=== PATIENT | male | born 1955 | race Two or more races ===

== ENCOUNTER 2020-05-07 00:50 | Inpatient (IN) | payer MEDICAID ==
[~2020-05-07] VITALS: Ht 177.8 cm; Wt 50.3 kg
[2020-05-07] VITALS (49 sets, daily range): BP systolic 59–164; BP diastolic 37–96
--- NOTE | 2020-05-07 01:30 | NUR ---
PATIENT CAME TO ER BED 7 BIB RA C/O ALTERED MENTAL STATUS. PER RESCUE AMBULANCE REPORT, PATIENT WAS ARGUING WITH STAFF AT [facility] WHEN HE SUDDENLY HAD A CHANGE IN MENTAL STATUS. PATIENT IS CURRENTLY AAOX4. NO SOB. BREATHING EVENLY AND UNLABORED ON ROOM AIR. CONNECTED TO MONITOR.
--- NOTE | 2020-05-07 01:31 | NUR ---
PATIENT HAS HX OF COPD.
[2020-05-07 01:33] LABS: APPEARANCE,URINE Clear (CLEAR); BILIRUBIN,URINE Negative (NEGATIVE); BLOOD, URINE Negative Ery/uL (NEGATIVE); COLOR,URINE Yellow (YELLOW); KETONES,URINE Negative (NEGATIVE); LEUKOCYTE ESTERASE ,URINE Negative (NEGATIVE); NITRITE, URINE Negative (NEGATIVE); PH,URINE 7.5 (5.0-8.0); PROTEIN,URINE Negative (NEGATIVE); UGLUCOSE Negative (NEGATIVE); UROBILINOGEN,URINE 0.2 EU/dL (0.2)
[2020-05-07 01:34] LABS: BASOPHILS % (AUTO) 0.2 % (0.0-2.0); EOSINOPHILS % (AUTO) 0.1 % (0.0-6.0); HEMATOCRIT 42 % (39-51); HEMOGLOBIN 13.5 g/dL (13.5-17.5); LYMPHOCYTES # (AUTO) 0.4 /CMM (0.8-4.8); LYMPHOCYTES % (AUTO) 4.1 % (20.0-44.0); MEAN CORPUSCULAR HGB CONC 32 g/dl (31.0-36.0); MEAN CORPUSCULAR VOLUME 97 fL (80-96); MONOCYTES # (AUTO) 0.3 /CMM (0.1-1.30); MONOCYTES % (AUTO) 3.2 % (2.0-12.0); NEUTROPHILS % (AUTO) 92.4 % (43.0-81.0); PLATELET COUNT (AUTO) 121 /CMM (150-450); RED BLOOD CELL COUNT(AUTO) 4.33 MIL/uL (4.5-6.0); WHITE BLOOD COUNT (AUTO) 8.6 K/uL (4.3-11.0)
--- NOTE | 2020-05-07 01:41 | NUR ---
PATIENT IS BEING SENT TO CT.
[2020-05-07 01:42] LABS: CHLORIDE 95 mmol/L (98-107); CREATININE 0.2 mg/dL (0.6-1.3); GLUCOSE 122 mg/dL (74-106); POTASSIUM 4.5 mmol/L (3.5-5.1); SODIUM SERUM 138 mmol/L (136-145); UREA NITROGEN, BLOOD 12 mg/dL (7-18)
[2020-05-07 01:57] LABS: ALKALINE PHOSPHATASE 64 U/L (46-116); BILIRUBIN,DIRECT 0.1 mg/dL (0.0-0.2); BILIRUBIN,TOTAL 0.3 mg/dL (0.2-1.0)
[2020-05-07 01:58] LABS: ALANINE AMINOTRANSFERASE 21 U/L (12-78); ALBUMIN 3.5 g/dL (3.4-5.0); ASPARTATE AMINOTRANSFERASE 17 U/L (15-37); TOTAL PROTEIN, SERUM 6.6 g/dL (6.4-8.2)
--- NOTE | 2020-05-07 03:05 | NUR ---
Pt found with GTube pulled out. Dr Matthew notified. 20 fr gtube inserted.
[2020-05-07] MEDS ORDERED: DIATR MEGLU/DIATRIZOATE SODIUM 30 ML BOTTLE (GASTROGRAPHIN) ONE (03:29)
--- NOTE | 2020-05-07 04:38 | NUR ---
Admission sheet turned in to admitting
--- NOTE | 2020-05-07 05:28 | NUR ---
Miguel Angel Whalen Hybrid Tester [phone]
--- NOTE | 2020-05-07 07:13 | NUR ---
PATIENT ACCEPTED TO [facility] WAITING ON BED ASSIGNMENT
--- NOTE | 2020-05-07 07:14 | NUR ---
REPORT GIVEN TO ZOILA MILLER FOR ARTI.
[2020-05-07] MEDS ORDERED: MIRT30TA7 PO (08:49)
[2020-05-07] MEDS ORDERED: FLUT1BLS12 INH (08:49)
--- NOTE | 2020-05-07 08:51 | NUR ---
submitted move sheet and called for tele bed.
[2020-05-07] MEDS ORDERED: methylPREDNISolone SOD SUCC 125 MG/2ML VIAL ONE (08:58)
[2020-05-07] MEDS ORDERED: ALBUTEROL SULFATE INH 18 GM HFA.AER.AD IH PRN (09:00)
[2020-05-07] MEDS ORDERED: IPRATROPIUM NEB FS 0.5 MG/2.5 ML AMPUL.NEB NEB ONE (09:00)
[2020-05-07] MEDS ORDERED: IV NS 0.9% 500 ML BAG IV ONE (09:00)
[2020-05-07] MEDS ORDERED: ALBUTEROL FS 2.5 MG/3 ML VIAL.NEB NEB ONE (09:00)
[2020-05-07] MEDS ORDERED: methylPREDNISolone SOD SUCC 125 MG/2ML VIAL IV ONE (09:00)
[2020-05-07] MEDS ORDERED: IPRATROPIUM NEB FS 0.5 MG/2.5 ML AMPUL.NEB ONE (09:03)
[2020-05-07] MEDS ORDERED: ALBUTEROL FS 2.5 MG/3 ML VIAL.NEB ONE (09:03)
--- NOTE | 2020-05-07 09:04 | NUR ---
RT AT BEDSIDE FOR BREATHING TREATMENT.
[2020-05-07] MEDS ORDERED: ACETAMINOPHEN ES 500 MG TABLET ONE (09:11)
[2020-05-07] MEDS ORDERED: ACETAMINOPHEN ES 500 MG TABLET PO ONE (09:30)
--- NOTE | 2020-05-07 09:33 | NUR ---
CALLED HOUSE SUP FOR TELE BED WILL CALL BACK.
--- NOTE | 2020-05-07 10:17 | NUR ---
DR WILLOUGHBY AT BEDSIDE
--- NOTE | 2020-05-07 10:27 | NUR ---
REPORT GIVEN TO JOSSE MILLER OF TELE UNIT
--- NOTE | 2020-05-07 10:41 | NUR ---
PATIENT TRANSFERRED TO ROOM 312-1 VIA ACLS PROTOCOL. NEEDS ATTENDED, KEPT COMFORTABLE.
[2020-05-07 10:47] LABS: CARBON DIOXIDE 37 mmol/L (21-32)
[2020-05-07] MEDS ORDERED: IV NS 0.9% 1,000 ML IV PRN (11:01)
--- NOTE | 2020-05-07 11:10 | NUR ---
RAP ARTIST NOTES RECEIVED PT FROM ER VIA KARMA. PT AWAKE, ON SUPPLEMENTARY OXYGEN AT 2LPM VIA NC WITH 96-98%, PT STILL APPEARS GASPING BREATH WITH OPEN MOUTH. PT ABLE TO NOD THAT HE IS NOT OKAY, BUT UNABLE TO VERBALIZE HOW AND WHY. ADMITTING MD/SA AT THE UNIT AWARE OF THE SITUATION. CHARGE NURSE AWARE WELL IS AWARE, ORDERED STAT ABG. ON TELEMONITORING AT SR WITH PVCS HR 87. WILL CONTINUE TO MONITOR.
[2020-05-07] MEDS ORDERED: ZOLPIDEM TARTRATE 5 MG TABLET PO PRN (11:30)
[2020-05-07] MEDS ORDERED: MAGNESIUM HYDROXIDE 30 ML UDC PO PRN (11:30)
[2020-05-07] MEDS ORDERED: MAG HYDROX/AL HYDROX/SIMETH 30 ML UDC PO PRN (11:30)
--- NOTE | 2020-05-07 11:50 | NUR ---
DONKEY DOCTOR NOTES RAPID RESPONSE CALLED PER ADMITTING MD/SA IN THE UNIT 1140. PT NEEDS TO BE INTUBATED. PT HAS PULSE AND BREATHING. ER MD ARRIVED AND INTUBATED PT AT 1148. PT TO BE TRANSFERRED TO ICU, R261. REFER TO RAPID RESPONSE SHEET WELL.
[2020-05-07] MEDS: FLUTICASONE/VILANTEROL 1 EACH BLST.W.DEV IH SCH (12:00)
--- NOTE | 2020-05-07 12:10 | NUR ---
MANUFACTURING MAINTENANCE MECHANIC NOTES TRANSFERRED PT TO ICU R261 VIA BED WITH ACLS TRANSPORT. REPORT GIVEN TO PAUL/CHANEL AT BEDSIDE.
--- NOTE | 2020-05-07 13:00 | NUR ---
pt temp is 95.2, Nain Awad on.
--- NOTE | 2020-05-07 13:00 | NUR ---
RT INTUBATED PT AT 1140 WITH 7.0 SECURED AT 25CM TEETH BY DR GRIFFITHS EQUAL BILATERAL BREATH SOUNDS C02 COLOR CHANGE, BAGGED + TRANSFERRED PT TO ICU PLACED ON MECH VENT PLUGGED IN RED OUTLET PLACED ON FOLLOWING VENT SETTINGS OF AC 18 400 +5 100% PULLED TUBE OUT 2 CM AFTER CHEST XRAY AT 23CM AT LIP SECURED WILL CONT TO MONITOR
[2020-05-07] MEDS: ENOXAPARIN SODIUM 40 MG/0.4 ML DISP.SYRIN SQ SCH (13:15)
[2020-05-07] MEDS ORDERED: IPRATROPIUM NEB FS 0.5 MG/2.5 ML AMPUL.NEB NEB PRN ×2 (13:30)
[2020-05-07] MEDS ORDERED: ALBUTEROL FS 2.5 MG/0.5 ML VIAL.NEB NEB PRN ×2 (13:30)
[2020-05-07] MEDS ORDERED: LEVOFLOXACIN 500 MG /D5W 100ML 500 MG in PREMIX 1 EA IV SCH (13:30)
[2020-05-07] MEDS ORDERED: PROPOFOL 100 ML IV PRN (13:30)
--- NOTE | 2020-05-07 13:45 | NUR ---
received pt from [facility], s/p intubation s/t respiratory arrest, pt started on Diprivan, SR, lungs diminished, no edema, GT clamped, f/c inserted, picc line inserted, family notified, v/s stable, no pain, pt cleaned, changed and repositioned.
[2020-05-07 13:56] LABS: ABG BASE EXCESS 14.3 mmol/L; ABG PCO2 76.2 mmHg (35.0-45.0); ABG PH 7.369 (7.350-7.450); ABG PO2 154.1 mmHg (75.0-100.0); AaDO2 482.7 mmHg; COHb 0.3 % (0.5-1.5); MetHb 0.1 % (0.0-1.5); O2Hb 98.6 % (94.0-97.0); SITE, ABG Left Brachial; VENT MODE, BG AC 18 400 +5 100%
--- NOTE | 2020-05-07 14:30 | NUR ---
pt SBP 65-71, Dr. Salamanca notified, orders received and carried out.
[2020-05-07] MEDS: Z GUARD REMEDY 2 OZ OINT TP SCH ×2 (14:46→20:53)
[2020-05-07] MEDS: LEVOFLOXACIN 750 MG /D5W 150ML 750 MG in PREMIX 1 EA IV SCH (14:46)
[2020-05-07] MEDS: PHENYLEPHRINE 100 MG in IV NS 0.9% 240 ML IV PRN (15:58)
--- NOTE | 2020-05-07 16:41 | NUR ---
pt is resting in the bed, sedated on Diprivan at 70mcg, SR, intubated, sat well, low urine output, MD aware, receiving monica at 1.5mcg, v/s stable, no pain, pt cleaned, changed and repositioned q2hrs.
[2020-05-07] MEDS ORDERED: VECURONIUM 10 MG VIAL IV ONE (16:52)
[2020-05-07] MEDS ORDERED: ETOMIDATE 2 MG/ML VIAL IV ONE (16:52)
[2020-05-07] MEDS ORDERED: SUCCINYLCHOLINE CHLORIDE 20 MG/ML VIAL IV ONE (16:52)
[2020-05-07] MEDS: methylPREDNISolone SOD SUCC 40 MG/ML VIAL IV SCH (16:57)
[2020-05-07] MEDS: PROPOFOL 100 ML IV PRN (17:54)
[2020-05-07] MEDS ORDERED: methylPREDNISolone SOD SUCC 125 MG/2ML VIAL IV SCH (18:00)
[2020-05-07] MEDS: IV NS 0.9% 1,000 ML IV PRN (20:52)
[2020-05-07] MEDS: MIRTAZAPINE 15 MG TABLET PO SCH (21:54)
[2020-05-08] VITALS (93 sets, daily range): BP systolic 72–146; BP diastolic 45–86
--- NOTE | 2020-05-08 00:25 | NUR ---
RT NOTE Pt rec'd intubated via ETT sz 7.0 secured at 23 cm at the lipline. [facility] on [facility] vent on AC mode settings as charted. Pt shows no signs of resp distress or sob. Pt sx'd for thick small amt of pale yellow secretions. Alarms are set and audible. Ambu bag bedside. Vent plugged into red outlet. Will continue to monitor Addendum: 05/08/20 at 0031 by ALEXANDRO WILLIAM RT Amended: Links added.
[2020-05-08] MEDS: PROPOFOL 100 ML IV PRN ×4 (00:31→21:15)
[2020-05-08] MEDS: IV NS 0.9% 1,000 ML IV PRN (02:25)
[2020-05-08 04:52] LABS: BASOPHILS % (AUTO) 0.2 % (0.0-2.0); HEMATOCRIT 31 % (39-51); HEMOGLOBIN 10.4 g/dL (13.5-17.5); LYMPHOCYTES # (AUTO) 0.7 /CMM (0.8-4.8); LYMPHOCYTES % (AUTO) 4.2 % (20.0-44.0); MEAN CORPUSCULAR HGB CONC 34 g/dl (31.0-36.0); MEAN CORPUSCULAR VOLUME 96 fL (80-96); MONOCYTES # (AUTO) 0.5 /CMM (0.1-1.30); MONOCYTES % (AUTO) 3.3 % (2.0-12.0); NEUTROPHILS # (AUTO) 14.8 /CMM (1.8-8.9); NEUTROPHILS % (AUTO) 92.3 % (43.0-81.0); RED BLOOD CELL COUNT(AUTO) 3.22 MIL/uL (4.5-6.0)
[2020-05-08 04:57] LABS: PLATELET COUNT (AUTO) 87 /CMM (150-450)
[2020-05-08 05:03] LABS: CREATININE 0.3 mg/dL (0.6-1.3); MAGNESIUM 1.7 mg/dL (1.8-2.4); POTASSIUM 3.2 mmol/L (3.5-5.1)
[2020-05-08 05:13] LABS: THYROID STIMULATING HORMONE 2.567 uIU/mL (0.358-3.74)
--- NOTE | 2020-05-08 06:42 | NUR ---
RN notes Patient in bed, sedated with no apparent distress. Breathing even and unlabored. Vent setting well tolerated. No physical manifestation of pain or discomfort. On propofol drip started at the beginning of shift at 70mcg/kg/hr titrated down up to 0mcg/kg/hr, tolerating welll. On levo drip started at 2.5, titrated down to 1.05, no adverse effect noted. Noted low temperature of 96.4, applied heating pad, otherwise all Vital signs wnl. No signaficant change of condition. Kept clean and dry. Will endorse to next shift for continuity of care.
--- NOTE | 2020-05-08 06:46 | NUR ---
RN notes Radiology called regarding result of xray, suspected pneumothorax on the right side. Relayed message to MD (Dr. Julian). advised to let pulmonary doctor know. Will endorse to next shift. Kept clean and dry.
--- NOTE | 2020-05-08 08:00 | NUR ---
Sedation Vacation Notes 05/08: Patient able to make eye contact, follow command and nod yes or no to questions
[2020-05-08] MEDS: Magnesium 1GM/D5W 100ML PREMIX 100 ML IV SCH ×2 (08:28→10:28)
[2020-05-08] MEDS: ENOXAPARIN SODIUM 40 MG/0.4 ML DISP.SYRIN SQ SCH (08:29)
[2020-05-08] MEDS: Z GUARD REMEDY 2 OZ OINT TP SCH ×2 (08:29→21:18)
[2020-05-08] MEDS: methylPREDNISolone SOD SUCC 40 MG/ML VIAL IV SCH ×3 (08:29→17:09)
[2020-05-08] MEDS: PHENYLEPHRINE 100 MG in IV NS 0.9% 240 ML IV PRN (08:30)
[2020-05-08] MEDS ORDERED: POTASSIUM CHLORIDE 20 MEQ TAB.PRT.SR PO ONE (08:30)
[2020-05-08] MEDS: ACETAMINOPHEN 325 MG TABLET PO PRN (08:30)
[2020-05-08 08:39] LABS: ABG BASE EXCESS 8.5 mmol/L; ABG OXYGEN SATURATION 95.6 % (92.0-98.5); ABG PCO2 43.6 mmHg (35.0-45.0); ABG PH 7.493 (7.350-7.450); ABG PO2 72.4 mmHg (75.0-100.0); AaDO2 235.1 mmHg; COHb 0.3 % (0.5-1.5); O2Hb 95.3 % (94.0-97.0); SITE, ABG Right Radial; VENT MODE, BG AC 18 400 +5 50%
[2020-05-08] MEDS: FLUTICASONE/VILANTEROL 1 EACH BLST.W.DEV IH SCH (09:00)
[2020-05-08] MEDS: Potassium Chloride 10 MEQ in IV NS 0.9% 1,000 ML IV PRN ×2 (09:34→23:18)
[2020-05-08] MEDS: FAMOTIDINE/PF INJ 20 MG/2 ML VIAL IV SCH ×2 (09:34→17:09)
[2020-05-08] MEDS: IPRATROPIUM NEB FS 0.5 MG/2.5 ML AMPUL.NEB NEB SCH ×4 (10:17→21:48)
[2020-05-08] MEDS: ALBUTEROL FS 2.5 MG/0.5 ML VIAL.NEB NEB SCH ×4 (10:17→21:48)
[2020-05-08] MEDS: LEVOFLOXACIN 750 MG /D5W 150ML 750 MG in PREMIX 1 EA IV SCH (13:09)
[2020-05-08] MEDS: JEVITY 1.2 CAL 1,000 ML BOTTLE GT PRN (14:00)
[2020-05-08] MEDS ORDERED: NEUTRA PHOS 1 POWD.PACKET NG ONE (15:00)
--- NOTE | 2020-05-08 18:25 | NUR ---
COMPUTER TAPE LIBRARIAN Shift Summary Patient is sedated, attached to [facility] vent via ETT, FiO2 50%, no distress noted. Attached to tele monitor, SR HR 90s. PEG in place feeding Jevity @15mL/hr, placement verified via auscultation, no residual. Barclay draining to gravity. Bony sacrum protected with mepilex+zguard applied. Restraints in place for safety. JESSICA PICC infusing monica@0.9mcg/kg/min, NS+K @75ml/hr, propofol @50mcg/kg/min. Per repeat CXR, no pneumo. Spoke to son and today.
--- NOTE | 2020-05-08 18:49 | NUR ---
patient belonging note patient's phone in top drawer
--- NOTE | 2020-05-08 19:30 | NUR ---
THIN FILM TECHNICIAN INITAL SHIFT NOTES RECEIVED PATIENT IN BED, SEDATED ON DIPRIVAN DRIP, ORALLY INTUBATED ON MECHANICAL VENT AT PRESCRIBED SETTINGS. BEDSIDE TELEMETRY MONITORING SHOWS SINUS RHYTHM, HR 84 BPM. JESSICA PICC PATENT AND INTACT RUNNING IV FLUIDS SN WITH 10MEQ KCL @ 75ML/HR AND NEOSYNEPHRINE DRIP. GT PATENT AND INTACT, TOLERATING TUBE FEEDING, CURRENTLY @ 15ML/HR, GOAL OF 20ML/HR. PINEDA CATHETER PATENT AND INTACT, DRAINING YELLOW URINE VIA GRAVITY.
[2020-05-08] MEDS: MIRTAZAPINE 15 MG TABLET PO SCH (21:15)
[2020-05-09] VITALS (94 sets, daily range): BP systolic 83–139; BP diastolic 47–110
--- NOTE | 2020-05-09 | NUR ---
SLOT MACHINE KEY PERSON NOTES PATIENT RESTING IN BED, APPEARS COMFORTABLE. REMAINS ORALLY INTUBATED ON MECHANICAL VENT. WILL MONITOR CLOSELY
[2020-05-09] MEDS: ALBUTEROL FS 2.5 MG/0.5 ML VIAL.NEB NEB SCH ×4 (02:08→19:55)
[2020-05-09] MEDS: IPRATROPIUM NEB FS 0.5 MG/2.5 ML AMPUL.NEB NEB SCH ×4 (02:08→19:55)
[2020-05-09] MEDS: PROPOFOL 100 ML IV PRN ×3 (03:53→20:14)
[2020-05-09 04:18] LABS: BASOPHILS % (AUTO) 0.1 % (0.0-2.0); HEMATOCRIT 33 % (39-51); HEMOGLOBIN 10.8 g/dL (13.5-17.5); LYMPHOCYTES # (AUTO) 0.3 /CMM (0.8-4.8); LYMPHOCYTES % (AUTO) 3.8 % (20.0-44.0); MEAN CORPUSCULAR HGB CONC 33 g/dl (31.0-36.0); MEAN CORPUSCULAR VOLUME 97 fL (80-96); MONOCYTES # (AUTO) 0.3 /CMM (0.1-1.30); MONOCYTES % (AUTO) 3.9 % (2.0-12.0); NEUTROPHILS # (AUTO) 8.2 /CMM (1.8-8.9); NEUTROPHILS % (AUTO) 92.2 % (43.0-81.0); PLATELET COUNT (AUTO) 95 /CMM (150-450); RED BLOOD CELL COUNT(AUTO) 3.39 MIL/uL (4.5-6.0); WHITE BLOOD COUNT (AUTO) 8.9 K/uL (4.3-11.0)
[2020-05-09 04:37] LABS: ALBUMIN 2.3 g/dL (3.4-5.0); BILIRUBIN,TOTAL 0.2 mg/dL (0.2-1.0); CREATININE 0.3 mg/dL (0.6-1.3); PHOSPHORUS 2.5 mg/dL (2.5-4.9); POTASSIUM 3.9 mmol/L (3.5-5.1); TOTAL PROTEIN, SERUM 5.2 g/dL (6.4-8.2)
--- NOTE | 2020-05-09 06:50 | NUR ---
LAW CLERK NOTES RECEIVED CALL FROM RADIOLOGIST DR MENCHACA TO DISCUSS CXR FINDINGS OF PERSISTENT FREE AIR/PNEUMOPERITONEUM, FOUND ALSO ON PREVIOUS RADIOGRAPHS. DR MENCHACA SUGGESTS ABDOMINAL XRAY OR CT OF ABDOMEN TO FURTHER CHARACTERIZE. WILL RELAY TO DAY SHIFT NURSE FOR FOLLOW UP WITH
--- NOTE | 2020-05-09 07:00 | NUR ---
APPRENTICE LINEMAN THIRD STEP NOTES PATIENT RESTING IN BED, APPEARS COMFORTABLE. REMAINS ORALLY INTUBATED, SEDATED ON DIPRIVAN DRIP @ 50MCG, NEOSYNEPHRINE GTT 0.7MCG/KG/MIN
--- NOTE | 2020-05-09 08:00 | NUR ---
ICU/RN INITIAL NOTES,AM RECEIVED REPORT FROM NIGHT NURSE. PT INTUBATED AND SEDATED, ON VENT SETTINGS ORDERED BY MD, NO ACUTE DISTRESS NOTED. SINUS ON TELE. PT ON BILATERAL SOFT WRIST RESTRAINTS, ASSESSED PER PROTOCOL. RIGHT UPPER ARM PICC LINE PATENT AND INTACT, NO S.S OF INFECTION OR INFILTRATION NOTED, NBA, IVF AND SEDATION INFUSING ORDERED, AND TITRATED PER PROTOCOL. ALL NEEDS WILL BE ATTENDED TO, SAFETY MEASURES TAKEN, BED IN LOW POSITION, SIDE RAILS UP, CALL LIGHT WITHIN REACH. WILL CONTINUE CARE.
[2020-05-09 08:21] LABS: ABG OXYGEN SATURATION 99.1 % (92.0-98.5); ABG PCO2 69.6 mmHg (35.0-45.0); ABG PH 7.377 (7.350-7.450); ABG PO2 189.2 mmHg (75.0-100.0); COHb 0.3 % (0.5-1.5); MetHb 0.2 % (0.0-1.5); O2Hb 98.6 % (94.0-97.0); SITE, ABG Right Radial; VENT MODE, BG AC 18 400 50% +5
--- NOTE | 2020-05-09 08:30 | NUR ---
ICU/RN: DISCUSSED CHEST XRAY WITH . NO CONCERNS REGARDING POSSIBLE PNEUMO, WILL CONTINUE TO MONITOR.
[2020-05-09] MEDS: FLUTICASONE/VILANTEROL 1 EACH BLST.W.DEV IH SCH (08:36)
[2020-05-09] MEDS: Z GUARD REMEDY 2 OZ OINT TP SCH ×2 (08:36→20:15)
[2020-05-09] MEDS: FAMOTIDINE/PF INJ 20 MG/2 ML VIAL IV SCH ×2 (08:38→17:20)
[2020-05-09] MEDS: methylPREDNISolone SOD SUCC 40 MG/ML VIAL IV SCH ×3 (08:38→17:20)
[2020-05-09] MEDS: ENOXAPARIN SODIUM 40 MG/0.4 ML DISP.SYRIN SQ SCH (08:39)
--- NOTE | 2020-05-09 09:30 | NUR ---
ICU/RN: SEDATION VACATION DONE, PT OPENS EYES, FOLLOWS COMMANDS. AGITATION NOTED, TITRATED PER PROTOCOL.
--- NOTE | 2020-05-09 09:35 | NUR ---
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 RECOMMEND SURGICAL CONSULT FOR SACRAL WOUND. DR TAYLOR NOTIFIED OF CONSULT REQUEST. PT IS EXTREMELY THIN AND BONY. DIETARY CONSULT IN PLACE FOR MALNUTRITION. YAHIR ISOFLEX LOW AIRLOSS BED TO BE PLACED WHEN AVAILABLE. ALL SKIN PROTECTION RECOMMENDATIONS DISCUSSED WITH NURSING STAFF. MD IN AGREEMENT WITH PLAN OF CARE. Addendum: 05/09/20 at 0938 by ION VALVERDE WNDNU Amended: Links added.
--- NOTE | 2020-05-09 09:45 | NUR ---
ICU/RN: WOUND CONSULT: RN AT BEDSIDE, ASSESSED ORDERS RECEIVED WILL FOLLOW THROUGH.
[2020-05-09] MEDS: LEVOFLOXACIN 750 MG /D5W 150ML 750 MG in PREMIX 1 EA IV SCH (13:38)
[2020-05-09] MEDS: JEVITY 1.2 CAL 1,000 ML BOTTLE GT PRN (17:20)
[2020-05-09] MEDS: HYDROGEL DRESSING 90 GM TUBE TP SCH (17:21)
[2020-05-09] MEDS: PHENYLEPHRINE 100 MG in IV NS 0.9% 240 ML IV PRN (17:25)
--- NOTE | 2020-05-09 19:15 | NUR ---
ICU/RN ENDING NOTES,AM REPORT ENDORSED TO NIGHT NURSE. PT INTUBATED AND SEDATED. NO DISTRESS NOTED. POSSIBLE WEANING IN AM. ALL NEEDS ATTENDED TO, SAFETY MEASURES TAKEN, BED IN LOW POSITION, SIDE RAILS UP, CALL LIGHT WITHIN REACH. BILATERAL SOFT WRIST RESTRAINTS ASSESSED PER PROTOCOL. NBA INFUSING FOR BP SUPPORT. WILL CONTINUE TO MONITOR
--- NOTE | 2020-05-09 19:30 | NUR ---
QUAIL FARMER INITIAL SHIFT NOTES RECEIVED PATIENT IN BED, SEDATED ON DIPRIVAN DRIP, ORALLY INTUBATED ON MECHANICAL VENT AT PRESCRIBED SETTINGS. BEDSIDE TELEMETRY MONITORING SHOWS SINUS RHYTHM, HR 78 BPM. JESSICA PICC PATENT AND INTACT RUNNING IV FLUIDS 1/2 NS WITH 10MEQ KCL @ 100ML/HR AND NEOSYNEPHRINE DRIP, CURRENTLY @ 0.5MCG/KG/MIN. GT PATENT AND INTACT, TOLERATING TUBE FEEDING, CURRENTLY @ 20ML/HR, GOAL RATE ACHIEVED. PINDEA CATHETER PATENT AND INTACT, DRAINING GREEN COLORED URINE VIA GRAVITY.
[2020-05-09] MEDS: MIRTAZAPINE 15 MG TABLET PO SCH (22:49)
[2020-05-10] VITALS (55 sets, daily range): BP systolic 99–170; BP diastolic 59–107
--- NOTE | 2020-05-10 | NUR ---
FINANCIAL SERVICES EDUCATION CONSULTANT NOTES PATIENT RESTING IN BED, APPEARS COMFORTABLE. REMAINS ORALLY INTUBATED ON MECHANICAL VENT. WILL MONITOR CLOSELY
[2020-05-10] MEDS: ALBUTEROL FS 2.5 MG/0.5 ML VIAL.NEB NEB SCH ×4 (00:52→20:26)
[2020-05-10] MEDS: IPRATROPIUM NEB FS 0.5 MG/2.5 ML AMPUL.NEB NEB SCH ×4 (00:52→20:26)
[2020-05-10] MEDS: PROPOFOL 100 ML IV PRN (02:38)
--- NOTE | 2020-05-10 04:00 | NUR ---
LARRY OPERATOR NOTES FULL BED BATH RENDERED, PATIENT TOLERATED WELL. WILL CONTINUE TO MONITOR
[2020-05-10 04:16] LABS: CREATININE 0.3 mg/dL (0.6-1.3); POTASSIUM 4.1 mmol/L (3.5-5.1)
--- NOTE | 2020-05-10 07:27 | NUR ---
STRATEGIC MARKETING SPECIALIST NOTES PATIENT RESTING IN BED, APPEARS COMFORTABLE. REMAINS ORALLY INTUBATED, SEDATED ON DIPRIVAN DRIP @ 50MCG, NEOSYNEPHRINE GTT 0.3MCG/KG/MIN. WILL ENDORSE THE PATIENT TO THE AM SHIFT NURSE FOR CONTINUITY OF CARE
--- NOTE | 2020-05-10 07:45 | NUR ---
ICU/RN PT IS INTUBATED ON THE VENT AC MODE,SAT O2-100%.SEDATED ON DIPRIVAN.ON NEOSYNEPHRINE DRIP.RIGHT UPPER ARM PICC LINE .F/C IN PLACE DRAINING WITH YELLOW URINE.G-TUBE INFUSING WITH JEVITY AT 20 ML/HR NO RESIDUAL NOTED.WOUND ON THE SACRUM COVERED WITH MEPILEX.SUCTION PROVIDED.REPOSITION FOR COMFORT.
[2020-05-10] MEDS: methylPREDNISolone SOD SUCC 40 MG/ML VIAL IV SCH ×3 (08:15→16:12)
[2020-05-10] MEDS: FAMOTIDINE/PF INJ 20 MG/2 ML VIAL IV SCH ×2 (08:15→16:12)
[2020-05-10] MEDS: HYDROGEL DRESSING 90 GM TUBE TP SCH (08:16)
[2020-05-10] MEDS: Z GUARD REMEDY 2 OZ OINT TP SCH ×2 (08:17→21:50)
[2020-05-10] MEDS: ENOXAPARIN SODIUM 40 MG/0.4 ML DISP.SYRIN SQ SCH (08:17)
--- NOTE | 2020-05-10 08:30 | NUR ---
ICU/RN PT IS ON SIMV MODE.DIPRIVAN OFF.PT IS AWAKE.ALERT,FOLLOWS COMMAND..
[2020-05-10] MEDS ORDERED: DC PROPOFOL WHEN EXTUBATED XX PRN (09:00)
--- NOTE | 2020-05-10 09:00 | NUR ---
ICU/RN DUE MEDS ARE GIVEN ORDERED.
[2020-05-10 09:48] LABS: ABG BASE EXCESS 10.2 mmol/L; ABG OXYGEN SATURATION 98.4 % (92.0-98.5); ABG PCO2 51.4 mmHg (35.0-45.0); ABG PH 7.457 (7.350-7.450); ABG PO2 129.5 mmHg (75.0-100.0); AaDO2 60.3 mmHg; COHb 0.3 % (0.5-1.5); MetHb 0.1 % (0.0-1.5); SITE, ABG Right Radial; VENT MODE, BG SIMV 4 400 +5 35%
--- NOTE | 2020-05-10 10:00 | NUR ---
ICU/RN PT IS EXTUBATED.NEOSYNEPHRINE OFF.BP STABLE.PLACED ON 2 L N/C ,SAT O2-100%.
--- NOTE | 2020-05-10 11:15 | NUR ---
ICU/MODELING ANALYST DEBRIDEMENT DONE.WOUND DRESSING DONE ORDERED.PT IS AWAKE ,ALERT.BP STABLE.CONTINUE MONITORING.
[2020-05-10] MEDS: LEVOFLOXACIN 750 MG /D5W 150ML 750 MG in PREMIX 1 EA IV SCH (14:14)
[2020-05-10] MEDS: HYDROCODONE/APAP 5/325MG 1 EACH TABLET PO PRN ×2 (16:13→21:54)
[2020-05-10] MEDS: JEVITY 1.2 CAL 1,000 ML BOTTLE GT PRN (16:18)
--- NOTE | 2020-05-10 18:00 | NUR ---
ICU/RN PM CARE PROVIDED.DUE MEDS ARE GIVEN ORDERED.V/S STABLE,AFEBRILE.ON 2L N/C ,SAT O2-97%.CONTINUE MONITORING.
--- NOTE | 2020-05-10 19:30 | NUR ---
FRUIT OR NUT FARMWORKER INITIAL SHIFT NOTES RECEIVED PATIENT IN BED, AWAKE, ALERT AND ORIENTED X 2-3, SLIGHTLY LETHARGIC, BUT IMPROVING. PATIENT WAS EXTUBATED EARLIER TODAY, BREATHING EVEN AND NONLABORED WHILE AT REST, TOLERATING O2 VIA NC @ 2LPM. JESSICA PICC PATENT AND INTACT, ALL PORTS FLUSHED WITH NS, FREE FROM ANY SIGNS AND SYMPTOMS OF INFILTRATION OR PHLEBITIS. PATIENT NOTED TO BE EATING PUDDING AT THIS TIME, PENDING SWALLOW EVALUATION, BUT PASSED NURSING SWALLOW EVAL PER DAY SHIFT NURSE. PATIENT OBSERVED TO BE TOLERATING DIET AT THIS TIME. PATIENT WITH GT, TUBE FEEDING AT PRESCRIBED RATEEXPLAINED TO THE PATIENT REGARDING PLAN FOR SWALLOW EVALUATION BY SPEECH THERAPY. PER PATIENT "I JUST WANTED A TASTE, IM DONE FOR TONIGHT." PINEDA CATHETER PATENT AND INTACT, DRAINING YELLOW URINE VIA GRAVITY. HOB KEPT ELEVATED FOR COMFORT AND ANTI-ASPIRATION PRECAUTIONS
[2020-05-10] MEDS: MIRTAZAPINE 15 MG TABLET PO SCH (21:49)
[2020-05-11] VITALS (33 sets, daily range): BP systolic 95–170; BP diastolic 56–102
[2020-05-11] MEDS: IPRATROPIUM NEB FS 0.5 MG/2.5 ML AMPUL.NEB NEB SCH ×4 (01:07→20:13)
[2020-05-11] MEDS: ALBUTEROL FS 2.5 MG/0.5 ML VIAL.NEB NEB SCH ×4 (01:07→20:13)
[2020-05-11] MEDS: HYDROCODONE/APAP 5/325MG 1 EACH TABLET PO PRN ×2 (01:52→21:05)
--- NOTE | 2020-05-11 02:44 | NUR ---
POST SECONDARY PROFESSIONAL NOTES - HYPERTENSION PATIENT NOTED WITH PERSISTENT HYPERTENSION, LATEST BP 164/93 DESPITE ADMINISTRATION OF NORCO. CALLED AND SPOKE TO DR SHAO. BATEMAN WITH NEW ORDER FOR NORVASC 5MG VIA GT X1, AND CLONIDINE 0.1MG PO Q6H PRN. ORDERS READ BACK FOR CLARIFICATION. WILL CARRY OUT NEW ORDERS AND MONITOR CLOSELY
[2020-05-11] MEDS ORDERED: AMLODIPINE BESYLATE 5 MG TABLET GT ONE (03:00)
[2020-05-11] MEDS: CLONIDINE HCL 0.1 MG TABLET PO PRN (04:07)
--- NOTE | 2020-05-11 04:14 | NUR ---
SAP BUSINESS INTELLIGENCE CONSULTANT NOTES PATIENT REFUSED BED BATH THIS AM, STATING "ITS TOO COLD." PATIENT DID ALLOW RN TO CHECK SHEETS, CLEAN AT THIS TIME - NO BM. WILL MONITOR CLOSELY. CLONIDINE 0.1MG ADMINISTERED ORDERED FOR BP 170/90. CONTINUE CLOSE MONITORING
[2020-05-11 04:47] LABS: HEMATOCRIT 36 % (39-51); HEMOGLOBIN 11.8 g/dL (13.5-17.5); LYMPHOCYTES # (AUTO) 0.9 /CMM (0.8-4.8); LYMPHOCYTES % (AUTO) 15.5 % (20.0-44.0); MEAN CORPUSCULAR HGB CONC 33 g/dl (31.0-36.0); MEAN CORPUSCULAR VOLUME 97 fL (80-96); MONOCYTES # (AUTO) 0.5 /CMM (0.1-1.30); MONOCYTES % (AUTO) 8.7 % (2.0-12.0); NEUTROPHILS # (AUTO) 4.5 /CMM (1.8-8.9); NEUTROPHILS % (AUTO) 75.8 % (43.0-81.0); PLATELET COUNT (AUTO) 112 /CMM (150-450); RED BLOOD CELL COUNT(AUTO) 3.73 MIL/uL (4.5-6.0); WHITE BLOOD COUNT (AUTO) 5.9 K/uL (4.3-11.0)
[2020-05-11 04:59] LABS: CALCIUM, SERUM 8.4 mg/dL (8.5-10.1); CREATININE 0.2 mg/dL (0.6-1.3); MAGNESIUM 2.2 mg/dL (1.8-2.4); POTASSIUM 3.9 mmol/L (3.5-5.1)
--- NOTE | 2020-05-11 06:51 | NUR ---
RN ORTHOPAEDIC CLOSING NOTES PATIENT SLEEPING IN BED AT THIS TIME. PATIENT DENIES ANY SHORTNESS OF BREATH OR LABORED BREATHING, TOLERATED O2 VIA NC THROUGHOUT THE SHIFT @ 2LPM. NO BM THIS SHIFT. PATIENT REFUSED BED BATH, BUT DID LET STAFF CHECK SHEETS, WHICH ARE CLEAN AND DRY AT THIS TIME. WILL ENDORSE THE PATIENT TO THE AM SHIFT NURSE FOR ARTI
--- NOTE | 2020-05-11 07:30 | NUR ---
MANAGER SHIPPING INITIAL NOTE RECEIVED PATIENT AWAKE A/OX4, ABLE TO MAKE NEEDS KNOWN. WEAK IN APPEARANCE. DENIES PAIN OR DISCOMFORT. DENIES SOB AT THIS TIME. ON 2LPMO2 VIA NC. SKIN WARM AND DRY TO TOUCH. ON TELE MONITOR SR . F/C IN PLACE, DRAINING BY GRAVITY. HOB ELEVATED. ISOLATION PRECAUTIONS OBSERVE. PICC LINE PATENT AND INTACT, IVF RUNNING. SIDE RAILS UP AND LOCKED. BED KEPT AT LOWEST POSITION. CALL LIGHT KEPT WITHIN EASY REACH. WILL CONTINUE TO MONITOR.
[2020-05-11 08:31] LABS: ABG BASE EXCESS 13.5 mmol/L; ABG OXYGEN SATURATION 94.9 % (92.0-98.5); ABG PCO2 79.9 mmHg (35.0-45.0); ABG PH 7.346 (7.350-7.450); ABG PO2 76.4 mmHg (75.0-100.0); COHb 0.3 % (0.5-1.5); MetHb 0.2 % (0.0-1.5); O2Hb 94.4 % (94.0-97.0); SITE, ABG Right Radial; VENT MODE, BG 28% N/C
[2020-05-11] MEDS: methylPREDNISolone SOD SUCC 40 MG/ML VIAL IV SCH ×3 (08:48→17:08)
[2020-05-11] MEDS: FAMOTIDINE/PF INJ 20 MG/2 ML VIAL IV SCH ×2 (08:48→17:08)
[2020-05-11] MEDS: ALPRAZOLAM 0.25 MG TABLET PO PRN (08:48)
[2020-05-11] MEDS: ENOXAPARIN SODIUM 40 MG/0.4 ML DISP.SYRIN SQ SCH (08:49)
[2020-05-11] MEDS ORDERED: DIATR MEGLU/DIATRIZOATE SODIUM 30 ML BOTTLE (GASTROGRAPHIN) ONE (08:52)
[2020-05-11] MEDS: Z GUARD REMEDY 2 OZ OINT TP SCH ×2 (08:54→20:54)
[2020-05-11] MEDS: HYDROGEL DRESSING 90 GM TUBE TP SCH (08:54)
--- NOTE | 2020-05-11 08:56 | NUR ---
KNIFE SETTER GRINDER MACHINE NOTE SEEN AND EXAMINED BY DR WILLOUGHBY. DR WILLOUGHBY SPOKE TO SON, AWARE SON WANTS TO TAKE HIS DAD HOME. PER DR WILLOUGHBY PATIENT IS NOT STABLE TO GO HOME AND HE WILL HAVE PATIENT DOWNGRADED. MD AWARE OF RECENT CXR AND KUB ORDERED WITH GASTROGRAFIN. PER MD TURN OFF FEEDING FOR NOW. OK TO USE GT TO GIVE PATIENTS XANAX, PATIENT C/O FEELING ANXIOUS AT THIS TIME. NEW ORDERS NOTED. WILL CONTINUE TO MONITOR.
--- NOTE | 2020-05-11 09:10 | NUR ---
REAL ESTATE SERVICES ADMINISTRATOR NOTE SEEN AND EXAMINED BY DR FARIAS, PER MD KEEP PATIENT IN ICU FOR NOW, PUT ON BIPAP 15/5 AND DO ABGS 2 HOURS AFTER. RT AWARE.
--- NOTE | 2020-05-11 10:03 | NUR ---
FORESTRY FARM LABORER NOTE KUB RESULT REVIEWED BY DR FARIAS. PER DR FARIAS, INFORM DR WILLOUGHBY PATIENT NEEDS TO BE SEEN BY SURGEON, PEG IS NOT IN PLACE. SPOKE WITH DR WILLOUGHBY ON THE PHONE WITH ORDERS FOR NPO AND ATIVAN 0.25MG Q6 PRN IVP FOR ANXIETY.
--- NOTE | 2020-05-11 10:50 | NUR ---
CASE MANAGEMENT COORDINATOR NOTE KUB RESULT SEEN BY DR WILLOUGHBY WITH ORDER FOR CT ABDOMEN PELVIS WITHOUT CONTRAST
[2020-05-11 11:56] LABS: ABG BASE EXCESS 16.7 mmol/L; ABG PCO2 72.4 mmHg (35.0-45.0); ABG PH 7.408 (7.350-7.450); AaDO2 95.9 mmHg; MetHb 0.1 % (0.0-1.5); O2Hb 97.9 % (94.0-97.0); SITE, ABG Right Radial
--- NOTE | 2020-05-11 12:45 | NUR ---
RADIOLOGIC TECH NOTE RELAYED ABG RESULTS TO DR FARIAS WITH ORDERS TO KEEP BIPAP ON TIL TOMORROW MORNING, THEN ABG 2 HOURS OFF BIPAP. NOTED, AND RT AWARE. OK TO PLACE PATIENT ON NC FOR CT SCAN PROCEDURE.
--- NOTE | 2020-05-11 13:07 | NUR ---
ECONOMIC CONSULTANT NOTE RELAYED CT SCAN RESULTS TO DR WILLOUGHBY. WITH ORDERS OK TO CONTINUE TUBE FEEDING AND KUB AT 6AM TOMORROW MORNING
[2020-05-11] MEDS: LEVOFLOXACIN (250MG) 250 MG TABLET PO SCH (13:27)
--- NOTE | 2020-05-11 13:37 | NUR ---
agricultural agent note patient refusing bipap, dr melendez at bedside educating patient for need for bipap, patient still refused bipap. per dr melendez do stat abg to see if co2 levels improved and use bipap prn if patient in distress.
[2020-05-11] MEDS: LORAZEPAM INJ 2 MG/ML VIAL IV PRN ×2 (15:15→21:12)
--- NOTE | 2020-05-11 16:00 | NUR ---
director agricultural services note relayed to dr melendez patient spo2 on fio2 40% is 90-91%, fio2 titrated to 60%, spo2 96%. will continue to monitor. Addendum: 05/11/20 at 1638 by ANNMARIE LIU RN DELETE NOTE WRONG PATIENT
[2020-05-11 16:50] LABS: ABG BASE EXCESS 15.4 mmol/L; ABG OXYGEN SATURATION 94.9 % (92.0-98.5); ABG PCO2 70.4 mmHg (35.0-45.0); ABG PH 7.407 (7.350-7.450); ABG PO2 74.6 mmHg (75.0-100.0); COHb 0.3 % (0.5-1.5); MetHb 0.1 % (0.0-1.5); O2Hb 94.5 % (94.0-97.0); SITE, ABG Right Radial; VENT MODE, BG Nasal Cannula
[2020-05-11] MEDS: JEVITY 1.2 CAL 1,000 ML BOTTLE GT PRN (17:20)
--- NOTE | 2020-05-11 19:15 | NUR ---
MORTGAGE COORDINATOR NOTE RECEIVED PATIENT IN BED RESTING WITH HOB ELEVATED. A&O X3, ABLE TO MAKE NEEDS KNOWN. VERBALLY RESPONSIVE. BREATHING IS EVEN AND NON-LABORED. NO SOB NOTED AT THIS TIME. PATIENT WAS ON BIPAP, REQUESTED TO REMOVE BIPAP AND SWITCHED TO O2 2L VIA NC. O2 SAT IS 100% AT THIS TIME. [facility] FEEDING RUNNING AT 40 ML/HR. IV SITE ON JESSICA PICC IS CLEAN, DRY, AND PATENT. ON PINEDA CATH, URINE IS CLEAR AND YELLOW IN COLOR. IN NO APPARENT DISTRESS NOTED AT THIS TIME. WILL CONTINUE TO MONITOR.
--- NOTE | 2020-05-11 19:26 | NUR ---
AUTOMATIC EQUIPMENT TECHNICIAN CLOSING NOTES KEPT PATIENT CLEAN AND DRY. TURNED AND REPOSITIONED Q2 AND PRN. TOLERATING GT. GT PATENT AND INTACT, IN PLACE. PATIENT HAS BEEN REQUESTING TO BE ON AND OFF THE BIPAP MACHINE PER PATIENTS TOLERANCE. ALL DUE MEDS GIVEN. F/C PATENT, DRAINING BY GRAVITY. HOB ELEVATED. SIDE RAILS UP AND LOCKED. BED KEPT AT LOWEST POSITION. CALL LIGHT KEPT WITHIN EASY REACH. CONTINUITY OF CARE ENDORSED TO PM NURSE.
--- NOTE | 2020-05-11 21:00 | NUR ---
EMPLOYEE BENEFITS ATTORNEY NOTE PATIENT IS BACK ON BIPAP AT THIS TIME. WILL CONTINUE TO MONITOR.
[2020-05-11] MEDS: MIRTAZAPINE 15 MG TABLET PO SCH (21:04)
--- NOTE | 2020-05-11 23:25 | NUR ---
PEST CONTROL OPERATOR NOTE RECEIVED CALL FROM LAB, PATIENT'S REPEAT COVID SWAB IS NEGATIVE. WILL CONTINUE TO MONITOR.
[2020-05-12] VITALS (25 sets, daily range): BP systolic 90–159; BP diastolic 63–98
[2020-05-12] MEDS: ALBUTEROL FS 2.5 MG/0.5 ML VIAL.NEB NEB SCH ×4 (00:54→20:02)
[2020-05-12] MEDS: IPRATROPIUM NEB FS 0.5 MG/2.5 ML AMPUL.NEB NEB SCH ×4 (00:54→20:02)
[2020-05-12] MEDS: LORAZEPAM INJ 2 MG/ML VIAL IV PRN ×3 (02:59→20:46)
--- NOTE | 2020-05-12 03:05 | NUR ---
EARLY CHILDHOOD EDUCATION INSTRUCTOR NOTE PATIENT NOTED WITH ANXIETY AND REQUESTING TO REMOVE BIPAP DUE TO DISCOMFORT AT THIS TIME. BIPAP REMOVED AND PLACED PATIENT ON O2 2L VIA NC. O2 SAT IS 95% AT THIS TIME. WILL CONTINUE TO MONITOR.
[2020-05-12 04:01] LABS: BASOPHILS % (AUTO) 0.1 % (0.0-2.0); HEMATOCRIT 40 % (39-51); HEMOGLOBIN 12.8 g/dL (13.5-17.5); LYMPHOCYTES # (AUTO) 1.3 /CMM (0.8-4.8); LYMPHOCYTES % (AUTO) 14.8 % (20.0-44.0); MEAN CORPUSCULAR HGB CONC 32 g/dl (31.0-36.0); MEAN CORPUSCULAR VOLUME 96 fL (80-96); MONOCYTES # (AUTO) 0.7 /CMM (0.1-1.30); MONOCYTES % (AUTO) 7.5 % (2.0-12.0); NEUTROPHILS # (AUTO) 6.8 /CMM (1.8-8.9); NEUTROPHILS % (AUTO) 77.6 % (43.0-81.0); PLATELET COUNT (AUTO) 131 /CMM (150-450); RED BLOOD CELL COUNT(AUTO) 4.17 MIL/uL (4.5-6.0); WHITE BLOOD COUNT (AUTO) 8.7 K/uL (4.3-11.0)
[2020-05-12 04:11] LABS: CREATININE 0.3 mg/dL (0.6-1.3); POTASSIUM 4.5 mmol/L (3.5-5.1)
--- NOTE | 2020-05-12 07:13 | NUR ---
PROPERTY ADMINISTRATOR NOTE PATIENT REMAINED STABLE THROUGHOUT THE NIGHT. NO SIGNIFICANT CHANGES NOTED. ALL DUE MEDS GIVEN ORDERED AND TOLERATED WELL. IN NO APPARENT DISTRESS NOTED AT THIS TIME. WILL ENDORSE TO AM SHIFT RN FOR CONTINUATION OF CARE.
--- NOTE | 2020-05-12 07:30 | NUR ---
COAGULATING BATH MIXER INITIAL NOTE RECEIVED PATIENT AWAKE ALERT AND ORIENTED TO SELF, TIME, PLACE. PERIODS OF CONFUSION. PATIENT NOTED TRYING TO GET OUT OF BED, STATED HE HAS TO BUILDING SERVICES COORDINATOR A CUSTOMER. PATIENT REORIENTED. DENIES SOB ON 2LPMO2 VIA NC. DENIES PAIN OR DISCOMFORT. ON TELE MONITOR SINUS TACHY. F/C IN PLACE DRAINING BY GRAVITY. TURNED AND REPOSITIONED. BED ALARM ON. SIDE RAILS UP AND LOCKED. BED KEPT AT LOWEST POSITION. WILL CONTINUE TO MONITOR.
[2020-05-12 08:15] LABS: ABG BASE EXCESS 13.8 mmol/L; ABG OXYGEN SATURATION 97.9 % (92.0-98.5); ABG PCO2 91.1 mmHg (35.0-45.0); ABG PH 7.305 (7.350-7.450); ABG PO2 112.5 mmHg (75.0-100.0); COHb 0.2 % (0.5-1.5); MetHb 0.3 % (0.0-1.5); O2Hb 97.4 % (94.0-97.0); SITE, ABG Right Radial; VENT MODE, BG 1.5 lpm nc
--- NOTE | 2020-05-12 08:35 | NUR ---
HORSE RACETRACK MANAGER NOTE DR FARIAS SPOKE WITH SON ESTEFANI, UPDATES WERE GIVEN TO SON. DR FARIAS DISCUSSED WITH SON PATIENTS STATUS AND ASKED WHAT THEIR WISHES ARE FOR THE PATIENT. PER SON THEY WOULD LIKE TO SEE HIS FATHER AND SEE WHAT HE WOULD LIKE TO DO. PER DR FARIAS INFORM NURSING PECAN CLEANER TO ALLOW MOTHER AND SON TO SEE PATIENT TO DETERMINE WHAT THEIR WISHES ARE, SELECTIVE TRACH VS BIPAP OR PALLIATIVE/HOSPICE SNF. SPOKE WITH PECAN CLEANER BAUTISTA, SHE WILL ALLOW 15 MINS FOR SON AND TO COME.
[2020-05-12] MEDS: FAMOTIDINE/PF INJ 20 MG/2 ML VIAL IV SCH ×2 (09:23→17:35)
[2020-05-12] MEDS: methylPREDNISolone SOD SUCC 40 MG/ML VIAL IV SCH ×3 (09:23→17:35)
[2020-05-12] MEDS: HYDROGEL DRESSING 90 GM TUBE TP SCH (09:24)
[2020-05-12] MEDS: ENOXAPARIN SODIUM 40 MG/0.4 ML DISP.SYRIN SQ SCH (09:24)
[2020-05-12] MEDS: Z GUARD REMEDY 2 OZ OINT TP SCH ×2 (09:24→20:46)
--- NOTE | 2020-05-12 09:57 | NUR ---
FORESTER AIDE NOTE PATIENT ON BIPAP, SLEEPING COMFORTABLY AT THIS TIME. WILL CONTINUE TO MONITOR.
[2020-05-12 10:13] LABS: ABG PCO2 68.3 mmHg (35.0-45.0); ABG PH 7.404 (7.350-7.450); ABG PO2 106.9 mmHg (75.0-100.0); AaDO2 99.8 mmHg; COHb 0.1 % (0.5-1.5); MetHb 0.1 % (0.0-1.5); O2Hb 97.8 % (94.0-97.0); SITE, ABG Right Radial; VENT MODE, BG 15/5 PS10 40%
[2020-05-12] MEDS ORDERED: DILTIAZEM HCL 30 MG TABLET PEG SCH (12:00)
--- NOTE | 2020-05-12 12:59 | NUR ---
RT BREATHING TX NOT GIVEN DUE TO INCREASED HR (133) RN ANNMARIE AWARE
[2020-05-12] MEDS: LEVOFLOXACIN (250MG) 250 MG TABLET PO SCH (13:31)
--- NOTE | 2020-05-12 13:45 | NUR ---
RESEARCH EDITOR NOTE PATIENT MORE ALERT, LESS CONFUSED. PER PATIENT HE BREATHS BETTER WITH THE BIPAP. WAITING FOR SON AND TO ARRIVE.
--- NOTE | 2020-05-12 14:47 | NUR ---
CUSTOMER SERVICE CASHIER NOTE DR WILLOUGHBY SPOKE WITH FAMILY WHEN THEY WERE AT BEDSIDE VIA PHONE. SPOKE WITH DR WILLOUGHBY VIA PHONE TO SEE WHAT HE DISCUSSED WITH FAMILY. NEW ORDER RECEIVED FOR HOUSE WRECKER TO SEE PATIENT AND SPEAK WITH FAMILY FOR COMFORT CARE/ HOME HEALTH. INFORMED MD PATIENT HR 130-140'S, WITH LOW BP. NEW ORDER RECEIVED TO DC CARDIZEM AND START METOPROLOL 25MG Q8 VIA GT [employer]. NOTED
--- NOTE | 2020-05-12 17:00 | NUR ---
SPRAY PAINTING MACHINE OPERATOR NOTE CASE MANAGEMENT REYES SPOKE TO FAMILY REGARDING HOME HEALTH/ HOSPICE, PER REYES FAMILY ARE MORE TOWARDS HOME HEALTH. THEY WILL DISCUSS MORE WITH FAMILY TOMORROW.
[2020-05-12] MEDS: METOPROLOL TARTRATE 25 MG TABLET GT SCH (17:34)
--- NOTE | 2020-05-12 19:15 | NUR ---
HEAD WAITRESS NOTE RECEIVED PATIENT IN BED RESTING WITH HOB ELEVATED. A&O X3, ABLE TO MAKE NEEDS KNOWN. VERBALLY RESPONSIVE. BREATHING IS EVEN AND NON-LABORED. NO SOB NOTED AT THIS TIME. PATIENT ON O2 2L VIA NC. O2 SAT IS 94% AT THIS TIME. ON JEVITY GT FEEDING RUNNING AT 40 ML/HR. IV SITE ON JESSICA PICC IS CLEAN, DRY, AND PATENT. ON PINEDA CATH, URINE IS CLEAR AND PALE YELLOW IN COLOR. CALL LIGHT IS WITHIN EASY REACH. IN NO APPARENT DISTRESS NOTED AT THIS TIME. WILL CONTINUE TO MONITOR.
--- NOTE | 2020-05-12 19:28 | NUR ---
ENGINEERING MANAGER CLOSING NOTES PATIENT HAS BEEN OFF AND ON THE BIPAP MACHINE. CURRENTLY ON NC 1.5 LPM. ALL DUE MEDS GIVEN. DENIES SOB AT THIS TIME. STATES HE FEELS MUCH BETTER. TOLERATING GTF. F/C DRAINING BY GRAVITY. KEPT CLEAN AND DRY. TURNED AND REPOSITIONED Q2 AND PRN. SIDE RAILS UP AND LOCKED. BED KEPT AT LOWEST POSITION. CALL LIGHT KEPT WITHIN EASY REACH. CONTINUITY OF CARE ENDORSED TO PM NURSE.
[2020-05-12] MEDS: HYDROCODONE/APAP 5/325MG 1 EACH TABLET PO PRN (20:46)
[2020-05-12] MEDS ORDERED: METOPROLOL TARTRATE 25 MG TABLET GT SCH (21:00)
--- NOTE | 2020-05-12 21:55 | NUR ---
DIRECT MARKETING REPRESENTATIVE NOTE NOTED PATIENT AGITATED AND EXHIBITS PERIODS OF CONFUSION. PATIENT TRIES TO GET OUT OF BED AND REMOVES HIS BIPAP. ATIVAN MED GIVEN ORDERED, STILL PATIENT ATTEMPTS TO GET OUT OF BED AND REMOVE O2 MONITORING LINE. INFORMED ON-CALL MD, DR. COON AND RECEIVED ORDER FOR BILATERAL SOFT WRIST RESTRAINTS. ORDERS NOTED AND CARRIED OUT. WILL CONTINUE TO CLOSELY MONITOR.
[2020-05-12] MEDS: MIRTAZAPINE 15 MG TABLET PO SCH (22:10)
[2020-05-13] VITALS (24 sets, daily range): BP systolic 91–159; BP diastolic 64–103
[2020-05-13] MEDS: ALBUTEROL FS 2.5 MG/0.5 ML VIAL.NEB NEB SCH ×4 (01:30→19:34)
[2020-05-13] MEDS: IPRATROPIUM NEB FS 0.5 MG/2.5 ML AMPUL.NEB NEB SCH ×4 (01:44→19:34)
--- NOTE | 2020-05-13 01:45 | NUR ---
RT albuterol not given due to tachycardia Addendum: 05/13/20 at 0146 by AGUILAR PHELPS RT RT albuterol not given due to tachycardiaGalilea caballero rn, notified
[2020-05-13] MEDS: JEVITY 1.2 CAL 1,000 ML BOTTLE GT PRN ×2 (01:54→23:44)
[2020-05-13] MEDS: ALPRAZOLAM 0.25 MG TABLET PO PRN (02:13)
[2020-05-13] MEDS: HYDROCODONE/APAP 5/325MG 1 EACH TABLET PO PRN ×2 (03:34→21:54)
--- NOTE | 2020-05-13 04:00 | NUR ---
MANAGER BENEFIT NOTE PATIENT TOLERATED BED BATH WELL AT THIS TIME. ALL WOUND CARE RENDERED. WILL CONTINUE TO MONITOR.
[2020-05-13 04:13] LABS: CALCIUM, SERUM 8.3 mg/dL (8.5-10.1); CREATININE 0.3 mg/dL (0.6-1.3); POTASSIUM 4.3 mmol/L (3.5-5.1)
[2020-05-13] MEDS: METOPROLOL TARTRATE 25 MG TABLET GT SCH ×3 (04:22→20:24)
--- NOTE | 2020-05-13 06:49 | NUR ---
INSIDE PARTS SALES NOTE PATIENT IS RESTING COMFORTABLY AT THIS TIME. STILL ON BIPAP, O2 SATURATION IS 99%. PATIENT IS KEPT CLEAN, DRY, AND COMFORTABLE, STILL ON BILATERAL SOFT WRIST RESTRAINTS. PATIENT CONTINUES TO TRY TO REMOVE BIPAP WHEN AWAKE. WILL ENDORSE TO AM SHIFT RN FOR CONTINUATION OF CARE.
--- NOTE | 2020-05-13 07:50 | NUR ---
EDI SPECIALIST: pt is obtunded, can open eyes for seconds, no eyes contact, unable to follow commands, rest now, on wrists restraints, on Bipap, O2sat over 95%, no SOB, SR, SBP 100, GTF residual 60 ml now, keep HOB over 40
--- NOTE | 2020-05-13 08:20 | NUR ---
DAIRY HUSBANDRY WORKER: updated with pt current status, VS, neuro status, I/O, IVF, ABG, changed Bipap setting: I/E 13/04, rate 12
[2020-05-13 08:21] LABS: ABG BASE EXCESS 14.1 mmol/L; ABG PCO2 73.8 mmHg (35.0-45.0); ABG PH 7.375 (7.350-7.450); ABG PO2 113.8 mmHg (75.0-100.0); AaDO2 86.5 mmHg; COHb 0.3 % (0.5-1.5); MetHb 0.3 % (0.0-1.5); O2Hb 97.4 % (94.0-97.0); SITE, ABG Right Radial; VENT MODE, BG S/T 15/5 BUR8 40%
[2020-05-13] MEDS: methylPREDNISolone SOD SUCC 40 MG/ML VIAL IV SCH ×3 (08:49→16:11)
[2020-05-13] MEDS: FAMOTIDINE/PF INJ 20 MG/2 ML VIAL IV SCH ×2 (08:49→16:10)
[2020-05-13] MEDS: HYDROGEL DRESSING 90 GM TUBE TP SCH (08:54)
[2020-05-13] MEDS: ENOXAPARIN SODIUM 40 MG/0.4 ML DISP.SYRIN SQ SCH (08:54)
[2020-05-13] MEDS: Z GUARD REMEDY 2 OZ OINT TP PRN (08:55)
[2020-05-13] MEDS: Z GUARD REMEDY 2 OZ OINT TP SCH ×2 (08:56→21:42)
--- NOTE | 2020-05-13 10:30 | NUR ---
FIELD ADMINISTRATIVE ASSISTANT: was in unit, see new orders, ordered Hospice eval/charge nurse spoke with case loader operator, ST updated with pt current status
--- NOTE | 2020-05-13 11:00 | NUR ---
DATA ARCHITECT MANAGER: pt.son called/notified re pt.current status, VS, o2sat., orders, spoke with , going to speak with .
--- NOTE | 2020-05-13 11:15 | NUR ---
ROUND CUTTER OPERATOR: ordered to place pt on 1-2L n/c, continue monitoring, place back on Bipap with desaturation/distress/lethargic reaction, nocturnal Bipap also, spoke with pt.son with explanation for POC/possible TT placement, Hospice company called, updated with pt.condition, VS, POC, pt is FULL code, going to call to lead case manager
--- NOTE | 2020-05-13 12:30 | NUR ---
RT NOTE PLACE ON 1L NASAL CANNULA AND NOC BIPAP PER ORDERS. PT TOLERATING WELL. WILL MONITOR CLOSELY.
[2020-05-13] MEDS: LEVOFLOXACIN (250MG) 250 MG TABLET PO SCH (13:45)
--- NOTE | 2020-05-13 14:30 | NUR ---
MERCHANDISE PICKUP/RECEIVING ASSOCIATE: pt is A/Ox2, rest, no c/o, no pain, O2sat. over 95% on 1L nc, no SOB, SR/ST max 120, SBP over 100/below 160, ST did swallow eval./ice chips only, pt is getting GTF/tolerated well
--- NOTE | 2020-05-13 16:25 | NUR ---
RADIO REPAIRMAN: called to [facility] re Dr.Shao FERNANDEZ eval order d/t pt malnutrition
--- NOTE | 2020-05-13 16:30 | NUR ---
ASSEMBLY MANAGER: DT called back: continue same GTF rate
--- NOTE | 2020-05-13 16:54 | NUR ---
ASSURANCE ENGINEER: pt.is A/Ox3, no pain now, tolerated well with NC O2 1.5L now, O2sat. over 94%, easy to be desaturation with activity, RT reevaluated pt.too, tolerated well for resp.Tx, SR/ST max 105 now, SBP over 100, GTF residual WNL, keep HOB over 40, all PM/bedbath/skin care/wounds care done, pt.spoke with family/used own cellphone, pt.got explanation again re POC, orders, included Bipap orders, wrists restraints are off
--- NOTE | 2020-05-13 19:57 | NUR ---
travel registered nurse icu. initial assessment. received the pt rest on the bed. awake. alert follow commands. coo showing nsr. iv rt upper arm picc line. ivf 1/2ns in potassium 10 meq 100 ml/h. hob elevated. gt intact. no leaking. jevity 40 ml/h. fc patent, urine draining, afebrile, christina continue to monitor vitals, oxygen 1.5l via nasal cannula. sat 97%. will continue to monitor vitals.
[2020-05-13] MEDS: MIRTAZAPINE 15 MG TABLET PO SCH (21:44)
--- NOTE | 2020-05-13 22:43 | NUR ---
GROUP CONTROLLER. BIPAP PLACED, SETTINGS 20/5.RATE IS 12,FIO2 40%. WILL CONTINUE TO MONITOR
[2020-05-14] VITALS (27 sets, daily range): BP systolic 110–161; BP diastolic 66–113
[2020-05-14] MEDS: IPRATROPIUM NEB FS 0.5 MG/2.5 ML AMPUL.NEB NEB SCH ×4 (01:12→19:46)
[2020-05-14] MEDS: ALBUTEROL FS 2.5 MG/0.5 ML VIAL.NEB NEB SCH ×4 (01:12→19:46)
[2020-05-14] MEDS: METOPROLOL TARTRATE 25 MG TABLET GT SCH ×3 (04:26→21:13)
[2020-05-14] MEDS: HYDROCODONE/APAP 5/325MG 1 EACH TABLET PO PRN ×5 (04:27→21:14)
[2020-05-14 05:01] LABS: BASOPHILS % (AUTO) 0.1 % (0.0-2.0); EOSINOPHILS % (AUTO) 0.1 % (0.0-6.0); HEMATOCRIT 37 % (39-51); LYMPHOCYTES # (AUTO) 0.8 /CMM (0.8-4.8); LYMPHOCYTES % (AUTO) 13.2 % (20.0-44.0); MEAN CORPUSCULAR HGB CONC 33 g/dl (31.0-36.0); MEAN CORPUSCULAR VOLUME 96 fL (80-96); MONOCYTES # (AUTO) 0.5 /CMM (0.1-1.30); MONOCYTES % (AUTO) 8.9 % (2.0-12.0); NEUTROPHILS # (AUTO) 4.5 /CMM (1.8-8.9); NEUTROPHILS % (AUTO) 77.7 % (43.0-81.0); PLATELET COUNT (AUTO) 111 /CMM (150-450); RED BLOOD CELL COUNT(AUTO) 3.85 MIL/uL (4.5-6.0); WHITE BLOOD COUNT (AUTO) 5.8 K/uL (4.3-11.0)
[2020-05-14 05:09] LABS: CALCIUM, SERUM 8.4 mg/dL (8.5-10.1); CREATININE 0.3 mg/dL (0.6-1.3)
--- NOTE | 2020-05-14 05:19 | NUR ---
BOX TOE BUFFER 0230 BIPAP OFF. BECAUSE PT REFUSED.
--- NOTE | 2020-05-14 05:22 | NUR ---
CIVIL ENGINEERING ASSISTANT. AM CARE, ORAL CARE, BED BATH GIVEN. LINEN CHANGED. REMAINING SAME OXYGEN 1.5 L VIA NASAL CANNULA. SAT 98%. PT IS MOUTH BREATHER, EXPLAIN ABOUT BIPAP INTENTION. HE UNDERSTAND. STILL REFUSED. GT FEEDING TOLERATED WELL. HOB ELEVATED. FC PATENT URINE DRAINING. AFEBRILE. IV RT UPPER ARM PICC LINE IVF 1/2NS IN10 MEQ KCL @ 100ML/HWILL CONTINUE TO MONITOR VITALS.
[2020-05-14 07:33] LABS: ABG BASE EXCESS 11.5 mmol/L; ABG PCO2 60.7 mmHg (35.0-45.0); ABG PH 7.418 (7.350-7.450); ABG PO2 71.7 mmHg (75.0-100.0); AaDO2 27.2 mmHg; COHb 0.1 % (0.5-1.5); MetHb 0.3 % (0.0-1.5); O2Hb 93.6 % (94.0-97.0); SITE, ABG Right Radial; VENT MODE, BG NC 1 L
[2020-05-14] MEDS: methylPREDNISolone SOD SUCC 40 MG/ML VIAL IV SCH ×3 (08:20→16:00)
[2020-05-14] MEDS: FAMOTIDINE/PF INJ 20 MG/2 ML VIAL IV SCH ×2 (08:20→16:00)
[2020-05-14] MEDS: ENOXAPARIN SODIUM 40 MG/0.4 ML DISP.SYRIN SQ SCH (08:21)
[2020-05-14] MEDS: HYDROGEL DRESSING 90 GM TUBE TP SCH (08:22)
[2020-05-14] MEDS: Z GUARD REMEDY 2 OZ OINT TP SCH ×2 (08:22→21:14)
[2020-05-14] MEDS: ONDANSETRON HCL/PF 4 MG/2 ML VIAL IVP PRN ×2 (08:28→21:43)
--- NOTE | 2020-05-14 09:21 | NUR ---
GERIATRIC SOCIAL WORK PROFESSOR NOTES 0715 RECEIVED PATIENT AOX3-4 , NOT IN ACUTE DISTRESS , DENIES SOB DISCOMFORT AT THIS TIME , SPO2 OF 100% VIA 1.5LPM NC WITH NO SIGNS OF DISTRESS , SR 75 ON BEDSIDE MONITOR , GT PATENT AND INTACT WITH JEVITY @ 40ML/HR INFUSING WELL WITH NO RESIDUALS NOTED , FC DRAINING VIA GRAVITY WITH CLEAR YELLOW URINE , JESSICA PICC LINE WITH 1/2 NS WITH 40MEQ KCL @ 100ML/HR INFUSING WELL , ALL NEEDS ATTENDED WILL CONTINUE TO MONITOR 0840 PT COMPLAINING OF ABDOMINAL PAIN 8/10 ACHING IN CHARACTERISTICS , ABDOMEN NON DISTENDED , NO GT RESIDUALS NOTED , NAUSEATED , PRN PAIN AND ANTI EMETIC MEDICATION GIVEN , PT IS REQUESTING SOMETHING TO DRINK , DR WILLOUGHBY AT BEDSIDE , DISCUSSED LABS , CURRENT STATUS , AND CHIEF COMPLAINTS , PT STAYED ON NOCTURNAL BIPAP FRO 1000 - 0200 AM , MD AWARE , PER MD ORDER ELEONORA HAJI , FAMILY REFUSED HOSPICE AND WANTS TO CONTINUE EVERYTHING .
--- NOTE | 2020-05-14 10:52 | NUR ---
FILM PROCESS OPERATOR NOTES SEEN AND EVALUATED BY PT , PT ABLE TO STOOD UP WITH ASSIST , STILL WEAK BLE , DR FARIAS SEEN AND EVALUATED THE PT , DISCUSSED ABG ON1.5LPM NC WITH SPO2 OF 100% WITH NO SIGNS OF DISTRESS , ON NOCTURNAL BIPAP FROM 1451-7370 AM , AOX4 , DISCUSSED LABS AND CHEST XRMD MIKAL AWARE
[2020-05-14] MEDS: JEVITY 1.2 CAL 1,000 ML BOTTLE GT PRN (17:42)
--- NOTE | 2020-05-14 18:37 | NUR ---
ELECTRONICS PRODUCTION SUPERVISOR NOTES NOTIFIED DR WILLOUGHBY THAT PT BP IS 172/952 , UPON REASSESSMENT BP IS 164/91 , PT CALM AND COOPERATIVE NO COMPLAINS OF PAIN OR DISTRESS , PER MD START PT ON NORVASC 5MG BID GT HOLD DOSE IF SBP BELOW 100MG , ORDER CARRIED OUT
[2020-05-14] MEDS: AMLODIPINE BESYLATE 5 MG TABLET GT SCH (18:44)
--- NOTE | 2020-05-14 19:45 | NUR ---
ICU/LPN OR MEDICAL ASSISTANT REPORT RECEIVED FROM THE TO DAY NURSE. SEE FLOWSHEET FOR ASSESSMENT, SKIN ISSUES ARE ADDRESSED ON FLOWSHEET ALONG WITH INTERVENTION TO EACH. PT IS ALERTX4. PT IS ON 1.5 LITERS VIA N/C TOLERATING THIS WELL WITH SATURATION AT 99-100%. WILL MONITOR THIS PT AND HIS SATURATION. PT WAS ASST IN TURNING AND REPOSITIONING FOR COMFORT AND CARE. NO ACUTE DISTRESS SEEN AT THIS TIME.
--- NOTE | 2020-05-14 21:00 | NUR ---
ICU/TELEMETRY REGISTERED NURSE PT COMPLAINED OF PAIN, RATED IT AT 8/10, GENERALIZED LOCATION OF PAIN. NORCO 1 TAB WAS GIVEN VIA G-TUBE. WILL CONTINUE TO MONITOR THIS PT AND HIS PAIN.
[2020-05-14] MEDS: MIRTAZAPINE 15 MG TABLET PO SCH (21:13)
[2020-05-14] MEDS: MONTELUKAST SODIUM (10MG) 10 MG TABLET GT SCH (21:13)
--- NOTE | 2020-05-14 21:30 | NUR ---
ICU/VOCATIONAL REHABILITATION TECHNICIAN PT COMPLAINED ABOUT BEING NAUSEATED, NO EMESES SEEN. NOTIFIED CHARGE NURSE WHO THEN GAVE ZOFRAN IVP PRN FOR THIS. WILL CONTINUE TO MONITOR THIS PT AND HIS NAUSEA.
--- NOTE | 2020-05-14 21:40 | NUR ---
ICU/HEEL LIFT GOUGER RT HERE TO PLACE PT ON PM BIPAPA, SETTINGS ARE 20/5, 40%, RATE 12. WILL MONITOR THIS PT CLOSELY.
--- NOTE | 2020-05-14 22:10 | NUR ---
ICUU/ETHANOL OPERATIONS MANAGER PT TOOK OFF BIPAP, REFUSED TO KEEP IT ON. 1.5 LITERS VIA N/C WAS PLACED BACK ON PT. WILL CONTINUE TO MONITOR THIS PT AND HIS SATURATION.
[2020-05-15] VITALS (33 sets, daily range): BP systolic 76–174; BP diastolic 43–114
--- NOTE | 2020-05-15 01:00 | NUR ---
ICU/FINANCIAL SERVICES INTERN PT COMPLAINED OF PAIN, RATED IT AT 8/10, GENERALIZED LOCATION OF PAIN. NORCO 1 TAB WAS GIVEN VIA G-TUBE. WILL CONTINUE TO MONITOR THIS PT AND HIS PAIN.
[2020-05-15] MEDS: HYDROCODONE/APAP 5/325MG 1 EACH TABLET PO PRN ×3 (01:10→10:06)
[2020-05-15] MEDS: CLONIDINE HCL 0.1 MG TABLET PO PRN (01:15)
[2020-05-15] MEDS: IPRATROPIUM NEB FS 0.5 MG/2.5 ML AMPUL.NEB NEB SCH ×4 (01:28→19:54)
[2020-05-15] MEDS: ALBUTEROL FS 2.5 MG/0.5 ML VIAL.NEB NEB SCH ×4 (01:28→19:54)
--- NOTE | 2020-05-15 01:51 | NUR ---
ICU/LIGHT OIL OPERATOR PT'S BLOOD PRESSURE IS HIGH AT 173/88, CATAPRES WAS GIVEN VIA G/TUBE FOR THIS BLOOD PRESSURE. WILL CONTINUE TO MONITOR THIS PT.
[2020-05-15 04:21] LABS: HEMATOCRIT 37 % (39-51); HEMOGLOBIN 11.8 g/dL (13.5-17.5); LYMPHOCYTES # (AUTO) 0.7 /CMM (0.8-4.8); LYMPHOCYTES % (AUTO) 15.6 % (20.0-44.0); MEAN CORPUSCULAR HGB CONC 32 g/dl (31.0-36.0); MEAN CORPUSCULAR VOLUME 96 fL (80-96); MONOCYTES # (AUTO) 0.4 /CMM (0.1-1.30); MONOCYTES % (AUTO) 9.2 % (2.0-12.0); NEUTROPHILS # (AUTO) 3.4 /CMM (1.8-8.9); NEUTROPHILS % (AUTO) 75.2 % (43.0-81.0); PLATELET COUNT (AUTO) 115 /CMM (150-450); RED BLOOD CELL COUNT(AUTO) 3.82 MIL/uL (4.5-6.0); WHITE BLOOD COUNT (AUTO) 4.5 K/uL (4.3-11.0)
[2020-05-15] MEDS: METOPROLOL TARTRATE 25 MG TABLET GT SCH ×3 (04:30→21:07)
[2020-05-15 04:43] LABS: CALCIUM, SERUM 8.2 mg/dL (8.5-10.1); CREATININE 0.3 mg/dL (0.6-1.3); MAGNESIUM 2.1 mg/dL (1.8-2.4); PHOSPHORUS 2.7 mg/dL (2.5-4.9); POTASSIUM 4.2 mmol/L (3.5-5.1)
--- NOTE | 2020-05-15 05:00 | NUR ---
ICU/SLAB DEPILER OPERATOR PT COMPLAINED OF PAIN, RATED IT AT 8/10, GENERALIZED LOCATION OF PAIN. NORCO 1 TAB WAS GIVEN VIA G-TUBE. WILL CONTINUE TO MONITOR THIS PT AND HIS PAIN.
[2020-05-15] MEDS: ALPRAZOLAM 0.25 MG TABLET PO PRN ×2 (05:06→21:30)
--- NOTE | 2020-05-15 05:53 | NUR ---
ICU/CALL TAKER PT APPEARED TO BE HAVING A PANIC ATTACK, ASKED TO SIT ON SIDE OF BED. PT STATED HE COULDN'T BREATH. PT WAS PLACED ON BIPAP WITH SETTINGS OF 40%, 20/5, RATE 12. AT THIS TIME PT IS STILL A HAVING A PANIC ATTACK, XANAX WAS GIVEN VIA G/TUBE. WILL CONTINUE TO MONITOR THIS PT.
--- NOTE | 2020-05-15 07:15 | NUR ---
JACQUARD LOOM HEDDLES TIER NOTES RECEIVED PATIENT AOX2-3 , ON BIPAP SETTING ORDERED WITH , SPO2 OF 100% WITH NO SIGNS OF DISTRESS , SB 55 ON BEDSIDE MONITOR , GT PATENT AND INTACT WITH JEVITY @ 40ML/HR INFUSING WELL WITH NO RESIDUALS NOTED , JESSICA PICC LINE WITH 1/2 NS WITH 40MEQ KCL @ 100ML/HR INFUSING WELL , ALL NEEDS ATTENDED WILL CONTINUE TO MONITOR
--- NOTE | 2020-05-15 08:34 | NUR ---
WINDOWS ADMINISTRATOR NOTES DISCUSSED EVENTS HAPPENED THIS AM THAT PT HAS EPSIDOE OF PANIC ATTACK THAT HE CANNOT BREATH , BIPAP PLACED @ 0550 , NOCTURNAL BIPAP PLACE AT 2140 - 0 ONLY , VS STABLE , NO DISTRESS ,AFEBRILE , PER MD TAKE BIPAP OFF , PLACED PT ON 1.5 LPM NC , SPO2 OF 100% , PT IS AOX3 , NO COMPLAINS AT THIS TIME , WILL CONTINUE TO MONITOR
[2020-05-15] MEDS: AMLODIPINE BESYLATE 5 MG TABLET GT SCH (08:53)
[2020-05-15] MEDS: HYDROGEL DRESSING 90 GM TUBE TP SCH (08:53)
[2020-05-15] MEDS: Z GUARD REMEDY 2 OZ OINT TP SCH ×2 (08:53→21:07)
[2020-05-15] MEDS: FAMOTIDINE/PF INJ 20 MG/2 ML VIAL IV SCH ×2 (08:58→16:02)
[2020-05-15] MEDS: methylPREDNISolone SOD SUCC 40 MG/ML VIAL IV SCH ×3 (08:58→16:01)
[2020-05-15] MEDS: ENOXAPARIN SODIUM 40 MG/0.4 ML DISP.SYRIN SQ SCH (09:06)
--- NOTE | 2020-05-15 09:15 | NUR ---
SUPERVISOR COUNSELING AND GUIDANCE NOTES SEEN AND EVALUATED BY DR WILLOUGHBY , DISCUSSED LABS , CHEST XRAY RESULTS , PT OFF BIPAP ON 1.5LPM NC SPO2 OF 100% WITH NO DISTRESS , NOCTURNAL BIPAP @ [id number] , PT HAS EPISODE OF PANIC ATTACK THIS AM @ 0550 , PLACED ON BIPAP OFF BIPAP @ 0830 , PT HAS PENDING SPEECH EVAL AOX3-4 , PER MD START PUREE DIET , DC IVF AND DECREASE FREE WATER FLUSHES TO 100ML Q6 , OK TO START PUREE DIET WITH GTF . ORDER CARRIED OUT
[2020-05-15] MEDS: HYDROMORPHONE 1 MG/1 ML DISP.SYRIN IV PRN ×3 (10:45→18:49)
[2020-05-15 11:32] LABS: ABG BASE EXCESS 9.8 mmol/L; ABG OXYGEN SATURATION 98.4 % (92.0-98.5); ABG PCO2 80.8 mmHg (35.0-45.0); ABG PH 7.303 (7.350-7.450); ABG PO2 137.3 mmHg (75.0-100.0); COHb 0.3 % (0.5-1.5); MetHb 0.3 % (0.0-1.5); O2Hb 97.8 % (94.0-97.0); SITE, ABG Right Radial; VENT MODE, BG 2L NC
--- NOTE | 2020-05-15 15:08 | NUR ---
ADMINISTRATION VICE PRESIDENT NOTES PT COMPLAINING OF NON PRODUCTIVE COUGH , NOTIFIED DR FARIAS , PER MD START PT ON ROBITUSSIN 15 ML TID PRN , ORDER CARRIED OUT
[2020-05-15] MEDS: Z GUARD REMEDY 2 OZ OINT TP PRN (15:12)
[2020-05-15] MEDS ORDERED: GUAIFENESIN 300 MG/15 ML UDC GT PRN (15:30)
[2020-05-15] MEDS ORDERED: GUAIFENESIN/D-METHORPHAN HB 5 ML UDC PO PRN (15:30)
[2020-05-15] MEDS: JEVITY 1.2 CAL 1,000 ML BOTTLE GT PRN (17:26)
--- NOTE | 2020-05-15 17:31 | NUR ---
REINFORCING STEEL MACHINE OPERATOR NOTES DR DINORA LR WITH PRN BREATHING TREATMENT , PER MD START PT WITH VENTOLIN AND ATROVENT NEB Q2 PRN , ORDERS CARRIED OUT
[2020-05-15] MEDS: IPRATROPIUM NEB FS 0.5 MG/2.5 ML AMPUL.NEB NEB PRN (17:48)
[2020-05-15] MEDS: ALBUTEROL FS 2.5 MG/0.5 ML VIAL.NEB NEB PRN (17:49)
--- NOTE | 2020-05-15 19:05 | NUR ---
ROAD CUTTER NOTES RECEIVED PATIENT AOX2-3 , ROOM AIR , SPO2 OF 88-90% WITH NO SIGNS OF DISTRESS , SINUS RHYTHM 62 ON BEDSIDE MONITOR , GT PATENT AND INTACT WITH JEVITY @ 40ML/HR INFUSING WELL WITH NO RESIDUALS NOTED , JESSICA PICC LINE FLUSH AND PATENT SAFETY MEASURE MAINTAINED BED ON LOWEST POSITION CALL LIGHT WITHIN REACH URINAL WITHIN REACH CONTINUE TO MONITOR
[2020-05-15] MEDS: MIRTAZAPINE 15 MG TABLET PO SCH (21:07)
[2020-05-15] MEDS: MONTELUKAST SODIUM (10MG) 10 MG TABLET GT SCH (21:07)
--- NOTE | 2020-05-15 23:58 | NUR ---
PATIENT CARE ASSISTANT NOTES PT COMPLAINING OF NOT GETTING GOOD SLEEP, HE ALSO WANTS TO REMOVED THE BIPAP, BECOME SO AGITATED, BIPAP WAS REMOVED AND PUT HIM BACK TO O2 VIA NC 1.5 SPO2 93%, DOCTOR MADE AWARE FOR THE SLEEPING PROBLEM OF THE PT WITH ORDER FOR BENADRYL 25MG PO QHS PRN NOTED AND CARRIED OUT Addendum: 05/16/20 at 0251 by KASSANDRA MARY RN CAMERON CRAWFORD ORDER OF BENADRYL BECAUSE PT IS DOCTOR WILLOUGHBY PT. DR WILLUOGHBY MADE AWARE WAITING FOR REPLY
[2020-05-16] VITALS (31 sets, daily range): BP systolic 85–151; BP diastolic 20–95
--- NOTE | 2020-05-16 01:45 | NUR ---
RN NOTES BIPAP RESTARTED PT AGREED SPO2 92 % TOLERATING WELL
[2020-05-16] MEDS: IPRATROPIUM NEB FS 0.5 MG/2.5 ML AMPUL.NEB NEB SCH ×4 (01:48→19:30)
[2020-05-16] MEDS: ALBUTEROL FS 2.5 MG/0.5 ML VIAL.NEB NEB SCH ×4 (01:49→19:30)
--- NOTE | 2020-05-16 02:00 | NUR ---
RN NOTES PT CALL ME HE WANTS TO REMOVED BIPAP TELL HIM ABOUT THE RISK AND BENEFITS OF BIPAP BUT STILL PT WANTS TO REMOVE AND BECOME AGITATED, TURN OFF BIPAP AND PUT BACK TO O2 2L VIA NC TOLERATING WELL SPO2 97% Addendum: 05/16/20 at 0622 by KASSANDRA MARY RN RT MADE AWARE
--- NOTE | 2020-05-16 02:58 | NUR ---
RN NOTES DR WILLOUGHBY MADE AN ORDER FOR BENADRYL 25MG PO PRN QHS
[2020-05-16] MEDS ORDERED: diphenhydrAMINE HCL 25 MG CAPSULE PO PRN ×3 (03:00)
[2020-05-16] MEDS: HYDROMORPHONE 1 MG/1 ML DISP.SYRIN IV PRN (03:19)
--- NOTE | 2020-05-16 03:19 | NUR ---
RN NOTES PT REFUSED BED BATH AND CHANGING BEDDINGS HE ALSO REFUSED TO TALK PHOTO OF HIS SACRAL AREA HE SAYS HE WANT TO SLEEP WILL TRY AGAIN AFTER HE SLEEP
[2020-05-16 04:13] LABS: BASOPHILS % (AUTO) 0.1 % (0.0-2.0); HEMATOCRIT 35 % (39-51); HEMOGLOBIN 11.4 g/dL (13.5-17.5); LYMPHOCYTES # (AUTO) 0.9 /CMM (0.8-4.8); LYMPHOCYTES % (AUTO) 21.4 % (20.0-44.0); MEAN CORPUSCULAR HGB CONC 33 g/dl (31.0-36.0); MEAN CORPUSCULAR VOLUME 96 fL (80-96); MONOCYTES # (AUTO) 0.4 /CMM (0.1-1.30); MONOCYTES % (AUTO) 8.4 % (2.0-12.0); NEUTROPHILS # (AUTO) 3.1 /CMM (1.8-8.9); NEUTROPHILS % (AUTO) 70.1 % (43.0-81.0); PLATELET COUNT (AUTO) 115 /CMM (150-450); RED BLOOD CELL COUNT(AUTO) 3.59 MIL/uL (4.5-6.0); WHITE BLOOD COUNT (AUTO) 4.4 K/uL (4.3-11.0)
--- NOTE | 2020-05-16 04:15 | NUR ---
RN NOTES BIPAP WAS RESTARTED PT AGREE TOLERATED WELL SPO2 94% PT GO TO SLEEP
[2020-05-16 04:27] LABS: CALCIUM, SERUM 8.1 mg/dL (8.5-10.1); CREATININE 0.3 mg/dL (0.6-1.3); MAGNESIUM 2.1 mg/dL (1.8-2.4); PHOSPHORUS 3.6 mg/dL (2.5-4.9); POTASSIUM 4.7 mmol/L (3.5-5.1)
[2020-05-16] MEDS: METOPROLOL TARTRATE 25 MG TABLET GT SCH (05:00)
[2020-05-16] MEDS: Z GUARD REMEDY 2 OZ OINT TP PRN ×2 (06:09→08:11)
--- NOTE | 2020-05-16 06:49 | NUR ---
TRANSPLANT NURSE CLOSING NOTES PT ON BED ASLEEP AROUSE EASILY TO STIMULI, STILL ON BIPAP WITH SPO2 94%, TELE MONITOR READS SINUS RHYTHM 70'S-80'S NO SIGNIFICANT CHANGES ON CONDITION NOTED, ALL NEEDS ATTENDED SAFETY MEASURE MAINTAINED WILL ENDORSE TO AM SHIFT NURSE
--- NOTE | 2020-05-16 07:05 | NUR ---
RN NOTES RECEIVED PT ON BED, ALERT, ON BIPAP, O2 SAT WNL, ON TELE ST HR IN 100'S , GT INTACT , JEVITY AT 40CC/HR RUNNING , R UPPER ARM PICC LINE SITE CLEAN,DRY AND INTACT, SR UP x3, CALL LIGHT WITHIN EASY REACH, BED LOCKED AND IN LOWEST POSITION, CONTINUE TO MONITOR .
[2020-05-16] MEDS: FAMOTIDINE/PF INJ 20 MG/2 ML VIAL IV SCH ×3 (08:09→16:02)
[2020-05-16] MEDS: methylPREDNISolone SOD SUCC 40 MG/ML VIAL IV SCH ×3 (08:09→09:30)
[2020-05-16] MEDS: ENOXAPARIN SODIUM 40 MG/0.4 ML DISP.SYRIN SQ SCH (08:10)
[2020-05-16] MEDS: HYDROGEL DRESSING 90 GM TUBE TP SCH ×2 (08:12→08:20)
[2020-05-16] MEDS: Z GUARD REMEDY 2 OZ OINT TP SCH ×3 (08:12→21:00)
--- NOTE | 2020-05-16 09:00 | NUR ---
RN NOTES PT IS ALERT BUT UNCOOPERATIVE, CONFUSED , REFUSED MORNING MEDS AND ABG, STATED DOES NOT WANT TO BE TOUCH AT ALL, DR WILLOUGHBY NOTIFED. O2 SAT IN 90'S , ON RA, CONTINUE TO MONITOR .
[2020-05-16] MEDS ORDERED: THEOPHYLLINE ANHYDROUS 200 MG TAB.SR.12H PO SCH (09:30)
[2020-05-16 10:56] LABS: ABG BASE EXCESS 15.3 mmol/L; ABG OXYGEN SATURATION 93.7 % (92.0-98.5); ABG PCO2 56.8 mmHg (35.0-45.0); ABG PH 7.481 (7.350-7.450); ABG PO2 62.5 mmHg (75.0-100.0); AaDO2 19.2 mmHg; COHb 0.2 % (0.5-1.5); MetHb 0.3 % (0.0-1.5); O2Hb 93.2 % (94.0-97.0); SITE, ABG Right Radial; VENT MODE, BG ROOM AIR
[2020-05-16] MEDS: ACETAMINOPHEN 325 MG TABLET PO PRN ×2 (11:40→16:15)
--- NOTE | 2020-05-16 12:00 | NUR ---
RN NOTES VSS STABLE, PT SITTING AT THE EDGE OF THE BED , O2 SAT WN/ , ENCOURAGED DEEP BREATHING, CONTINUE TO MONITOR.
[2020-05-16] MEDS: ALPRAZOLAM 0.25 MG TABLET PO PRN ×2 (12:10→23:45)
--- NOTE | 2020-05-16 14:00 | NUR ---
RN NOTES PT STILL REFUSED AM CARE AND LINING CHANGE.
--- NOTE | 2020-05-16 16:00 | NUR ---
RN NOTES VSS STABLE, O2 SAT WNL , CONTINUE TO MONITOR .
[2020-05-16] MEDS: JEVITY 1.2 CAL 1,000 ML BOTTLE GT PRN (17:23)
--- NOTE | 2020-05-16 18:05 | NUR ---
RN NOTES PT C/O CONSTIPATION, MOM GIVEN PER MD ORDER .
--- NOTE | 2020-05-16 18:14 | NUR ---
RN NOTES PT STABLE, NO SIGNIFICANT CHANGES NOTED ON THIS SHIFT, PT IS MORE ALERT AND ORIENTED x2, ON 1L O2 N/C , TF AT 40CC/HR RUNNING WELL, NO RESIDUAL NOTED, PT REFUSED DINNER , ENCOURAGE TO EAT BUT STILL REFUSED, R UPPER ARM PICC LINE SITE CLEAN, DRY AND INTACT , WILL ENDORSE TO DIRECTOR FRAUD NURSE FOR CONTINUITY OF CARE.
--- NOTE | 2020-05-16 20:27 | NUR ---
DOCUMENTATION IMPROVEMENT SPECIALIST, INITIAL ASSESSMENT. RECEIVED THE PT REST ON THE BED, AWAKE, ALERT, CONFUSED, LETHARGIC. TITLE CHECKER SHOWINGS TACH. OXYGEN 1L VIA NASAL CANNULA. SAT 92. HOB ELEVATED. WILL CONTINUE TO MONITOR VITALS.
--- NOTE | 2020-05-16 20:27 | NUR ---
PT REFUSED BREATHING TX. NOTIFIED RN.
[2020-05-16] MEDS: MIRTAZAPINE 15 MG TABLET PO SCH (22:14)
[2020-05-16] MEDS: MONTELUKAST SODIUM (10MG) 10 MG TABLET PO SCH (22:14)
--- NOTE | 2020-05-16 22:58 | NUR ---
PT PLACED ON NOC BIPAP. RN NOTIFIED.
--- NOTE | 2020-05-16 23:42 | NUR ---
PT REMOVED HIS BIPAP OFF. PT WAS PLACED BACK ON NC BY RN.
[2020-05-17] VITALS (18 sets, daily range): BP systolic 90–150; BP diastolic 27–97
--- NOTE | 2020-05-17 00:14 | NUR ---
agricultural loan officer. pt refused night time bipap.
[2020-05-17] MEDS: IPRATROPIUM NEB FS 0.5 MG/2.5 ML AMPUL.NEB NEB SCH ×4 (01:27→20:03)
[2020-05-17] MEDS: ALBUTEROL FS 2.5 MG/0.5 ML VIAL.NEB NEB SCH ×4 (01:27→20:03)
--- NOTE | 2020-05-17 01:27 | NUR ---
PT PLACED BACK ON BIPAP.
--- NOTE | 2020-05-17 01:35 | NUR ---
horticulture supervisor. pt has short of breath bipap placed. will continue to monitor
--- NOTE | 2020-05-17 03:23 | NUR ---
CAUSTICS LOADER. AM CARE, GIVEN. REMAINING SAME BIPAP SETTING TOLERATED WELL. SAT 98%. NO ACUTE DISTRESS NOTED. AFEBRILE. HOB ELEVATED. IV RT UPPER ARM PICC LINE. SALINE LOCK. TURN AND REPOSITION Q2H. WILL CONTINUE TO MONITOR VITALS.
[2020-05-17 04:00] LABS: EOSINOPHILS % (AUTO) 0.1 % (0.0-6.0); HEMATOCRIT 35 % (39-51); HEMOGLOBIN 11.8 g/dL (13.5-17.5); LYMPHOCYTES # (AUTO) 0.6 /CMM (0.8-4.8); LYMPHOCYTES % (AUTO) 11.1 % (20.0-44.0); MEAN CORPUSCULAR HGB CONC 33 g/dl (31.0-36.0); MEAN CORPUSCULAR VOLUME 96 fL (80-96); MONOCYTES # (AUTO) 0.3 /CMM (0.1-1.30); MONOCYTES % (AUTO) 6.3 % (2.0-12.0); NEUTROPHILS # (AUTO) 4.6 /CMM (1.8-8.9); NEUTROPHILS % (AUTO) 82.5 % (43.0-81.0); PLATELET COUNT (AUTO) 114 /CMM (150-450); RED BLOOD CELL COUNT(AUTO) 3.69 MIL/uL (4.5-6.0); WHITE BLOOD COUNT (AUTO) 5.6 K/uL (4.3-11.0)
[2020-05-17 04:13] LABS: CALCIUM, SERUM 8.3 mg/dL (8.5-10.1); CREATININE 0.3 mg/dL (0.6-1.3); POTASSIUM 4.1 mmol/L (3.5-5.1)
--- NOTE | 2020-05-17 04:35 | NUR ---
PT TAKEN OFF BIPAP AND PLACED ON 1L NC.
--- NOTE | 2020-05-17 05:39 | NUR ---
agricultural labor camp manager, pt is mouth breather. bipap off at 0500. pt requested. sat 85. oxygen increased 2l via nasal cannula.
--- NOTE | 2020-05-17 07:00 | NUR ---
JOURNEYMAN CARPENTER. PT REQUESTED TO BIPAP .NOW ON WITH SAME SETTINGS,
--- NOTE | 2020-05-17 07:22 | NUR ---
CUPOLA CHARGER. PT IS SOME TIMES VERY CONFUSED
[2020-05-17] MEDS: methylPREDNISolone SOD SUCC 40 MG/ML VIAL IV SCH (08:04)
[2020-05-17] MEDS: FAMOTIDINE/PF INJ 20 MG/2 ML VIAL IV SCH ×2 (08:04→17:10)
[2020-05-17] MEDS: ENOXAPARIN SODIUM 40 MG/0.4 ML DISP.SYRIN SQ SCH (08:05)
[2020-05-17] MEDS: HYDROGEL DRESSING 90 GM TUBE TP SCH (08:17)
[2020-05-17] MEDS: Z GUARD REMEDY 2 OZ OINT TP PRN (08:18)
[2020-05-17] MEDS: Z GUARD REMEDY 2 OZ OINT TP SCH ×2 (08:19→23:04)
[2020-05-17 09:03] LABS: ABG BASE EXCESS 12.8 mmol/L; ABG OXYGEN SATURATION 92.7 % (92.0-98.5); ABG PCO2 57.5 mmHg (35.0-45.0); ABG PO2 66.3 mmHg (75.0-100.0); AaDO2 36.4 mmHg; O2Hb 92.7 % (94.0-97.0); SITE, ABG Right Brachial; VENT MODE, BG NC 1L
--- NOTE | 2020-05-17 12:23 | NUR ---
ICU/RN: patient was received on Bipap this am, at 0730 patient removed his Bipap mask, was changed to nasal canula at 1 LPM and is tolerating well. Pt is confused of time, but is oriented to self, person and situation. Pt was asking for his food, verified that pt may have pureed diet with TF. Ate about 25% at breakfast, tolerated well. Uses urinal, had small BM today, incontinent of stool. Sat up in a chair at bedside today for about an hour with the help of PT. Obtained an order to down grade pt to tele floor. Pt denies any pain or discomfort. Kept verbalizing he wants to go home. Spoke to and son today gave updates. Will give report to telephone plant power operator. Addendum: 05/17/20 at 1311 by RITA CORTÉS RN Gave report to [employer] RN, endorsed patient's cellphone, dentures (upper and lower) and glasses as well.
--- NOTE | 2020-05-17 12:45 | NUR ---
ENGINEERED WOOD DESIGNER NOTES RECEIVED PT FROM ICU AT THIS TIME. PT TRANSPORTED TO UNIT BY BED WITH ACLS PROTOCOLS BY TWO RN NURSES, REPORT RECEIVED FROM [place] SURVEYOR. PT AOX2-3. PT ABLE TO VERBALIZE NEEDS. VITAL SIGNS WNL, NO SOB NOTED, NO S/S OF ANY ACUTE DISTRESS NOTED, NO C/O PAIN AT THIS TIME. PT ON 1LPM OXYGEN VIA NASAL CANULA. PT ON EXTERNAL BOX SORTER READING SR 96. RIGHT UPPER ARM TRIPLE LUMEN PICC LINE INTACT, PATENT AND FLUSHING WELL. G-TUBE FEEDING IN PLACE. SACRUM WOUND NOTED, BLE FOOT REDNESS. SAFETY PRECAUTIONS IN PLACE, BED IN LOWEST LOCKED POSITION, BED ALARM ON, HOB ELEVATED TO SEMI FOWLERS POSITION, SIDE RAILS UP, CALL LIGHT WITHIN REACH. WILL CONTINUE TO MONITOR
[2020-05-17] MEDS: PROSOURCE / PROSTAT (PYXIS) 30 ML UDC GT SCH (17:41)
--- NOTE | 2020-05-17 18:00 | NUR ---
G-TUBE WATER FLUSHED WITH 100ML WATER AT THIS TIME. WILL CONTINUE TO MONITOR
[2020-05-17] MEDS: JEVITY 1.2 CAL 1,000 ML BOTTLE GT PRN (18:21)
--- NOTE | 2020-05-17 19:01 | NUR ---
MAPPING PILOT CLOSING NOTES PT IN BED AWAKE AT THIS TIME. PT REMAINED STABLE THROUGHOUT SHIFT. NO S/S OF ANY ACUTE DISTRESS NOTED. NO C/O PAIN AT THIS TIME. PT KEPT CLEAN AND DRY. ALL CARE,NEEDS, TREATMENT AND MEDICATIONS ADMINISTERED ANTICIPATED PER ORDER. SAFETY PRECAUTIONS IN PLACE, BED IN LOWEST LOCKED POSITION, BED ALARM ON, HOB ELEVATED TO SEMI FOWLERS POSITION, SIDE RAILS UP, CALL LIGHT WITHIN REACH. WILL ENDORSE TO CAMERA STORAGE CLERK NURSE FOR ARTI.
[2020-05-17] MEDS ORDERED: THEOPHYLLINE ANHYDROUS 100 MG TAB.SR.12H PO SCH (21:00)
[2020-05-17] MEDS: MONTELUKAST SODIUM (10MG) 10 MG TABLET PO SCH (23:00)
[2020-05-17] MEDS: MIRTAZAPINE 15 MG TABLET PO SCH (23:00)
[2020-05-18] VITALS (28 sets, daily range): BP systolic 75–169; BP diastolic 39–114
--- NOTE | 2020-05-18 01:01 | NUR ---
MS/TELE/RN AT AROUND 1945, WHILE I WAS IN THE ROOM OF MY PATIENT AND WAS GETTING REPORT FROM ELECTROPHYSIOLOGY NURSE PRACTITIONER FOR MY PATIENT WHO WAS S/P SURGERY, MY MANUFACTURING TEST TECHNICIAN GRICELDA, TOLD ME THAT THE PATIENT WAS ON THE FLOOR. PER GRICELDA SHE WAS WITH THE PATIENT ABOUT 5 MINUTES PRIOR TO THE INCIDENT, SHE JUST WENT OUT THE ROOM TO GET SOMETHING FOR THE PATIENT AND WHEN SHE CAME BACK THE PATIENT WAS ALREADY ON THE FLOOR ON A KNEELING POSITION. ASSESSED THE PATIENT WHO WAS AWAKE, ALERT, ORIENTED TO SELF AND WITH CONFUSION WHICH WAS HIS BASELINE. PATIENT HAD NO C/O PAIN, CAN MOVE EXTREMITIES WITHOUT PAIN, NO BRUISES NOTED. WE BROUGHT PATIENT BACK TO BED, VITAL SIGNS WAS TAKEN, BP 161/96, HR 93, RR 20, O2 SAT 96% ON 2L 02. CHARGE NURSE, PRIMO, NURSING MAINTENANCE GROUNDMAN PETER, AND , GONSALO ISBELL WERE NOTIFIED AT ABOUT [address]. CALLED DR. WILLOUGHBY AT 2230, NOTIFIED HIM OF THE FALL, NO ORDERS RECEIVED. PATIENT WAS THEN MOVED TO ROOM 306-1, THE ROOM CLOSER TO NURSING STATION FOR SAFETY. MONITORED PATIENT CLOSELY.
[2020-05-18] MEDS: IPRATROPIUM NEB FS 0.5 MG/2.5 ML AMPUL.NEB NEB SCH ×4 (01:36→19:30)
[2020-05-18] MEDS: ALBUTEROL FS 2.5 MG/0.5 ML VIAL.NEB NEB SCH ×4 (01:36→19:30)
[2020-05-18] MEDS: ALPRAZOLAM 0.25 MG TABLET PO PRN ×2 (02:35→11:32)
--- NOTE | 2020-05-18 02:41 | NUR ---
MS/TELE/RN PATIENT IS STILL AWAKE AND RESTLESS, HR IN THE 120'S, XANAX 0.5 GT WAS GIVEN ORDERED, WILL MONITOR.
--- NOTE | 2020-05-18 06:31 | NUR ---
MS/TELE/RN PATIENT IS AWAKE, CONFUSED, NO DISTRESS NOTED, HOB ELEVATED, GTUBE FEEDING INFUSING, ALL NEEDS ATTENDED AT THIS TIME, WILL CONTINUE TO MONITOR.
[2020-05-18] MEDS: FAMOTIDINE/PF INJ 20 MG/2 ML VIAL IV SCH ×2 (08:20→17:12)
[2020-05-18] MEDS: ENOXAPARIN SODIUM 40 MG/0.4 ML DISP.SYRIN SQ SCH ×2 (08:22→09:00)
[2020-05-18] MEDS ORDERED: MONT10TA22 PO (08:59)
[2020-05-18] MEDS ORDERED: ALBU2.5V13 NEB (08:59)
[2020-05-18] MEDS ORDERED: IPRA0.2S9 NEB (08:59)
[2020-05-18] MEDS: PROSOURCE / PROSTAT (PYXIS) 30 ML UDC GT SCH ×2 (09:00→17:17)
[2020-05-18] MEDS: Z GUARD REMEDY 2 OZ OINT TP SCH ×2 (09:20→21:45)
--- NOTE | 2020-05-18 09:25 | NUR ---
FOUNDER Opening Notes Patient is A/O x 1 to person, confused to place and time, awake and alert. JESSICA PICC line patent and intact, G-Tube intact and patent. Refused to get the Lovenox this morning, not administered. Patient is a fall risk patient. Bed alarm is on, bed is low, side rails x 2 up for safety. Call light is within reach. Will continue to monitor.
[2020-05-18] MEDS: HYDROGEL DRESSING 90 GM TUBE TP SCH (10:00)
--- NOTE | 2020-05-18 11:30 | NUR ---
ASP DEVELOPER NOTES PT NOTED TO BE DESATURATING, O2 SAT 78-80% ON 2LPM VIA N/C, PT IS AWAKE AND GASPING FOR AIR, INCREASED O2 TO 5LPM VIA MASK, PT ASSESSED BY RT, O2 SAT IMPROVED TO 98%, PLACED PT BACK TO 2PM VIA N/C, PT REMAINS SR ON THE TELE MONITOR, VITALS STABLE, AFEBRILE, DR. WILLOUGHBY INFORMED, PER MD, GIVE XANAX, NOTED AND CARRIED OUT, NO OTHER ORDER GIVEN, WILL CONTINUE TO MONITO PT.
--- NOTE | 2020-05-18 13:27 | NUR ---
RT NOTE DURING 1300 CHECK ON THIS PT, PT SEEMED TO BE BREATHING IRREGULARLY. O2 SATURATION CHECKED 99% HR 90. CHARGE NURSE WAS NOTIFIED AND CONTACTED MD. NO OTHER ORDERS AT THIS TIME.
[2020-05-18] MEDS: CLONIDINE HCL 0.1 MG TABLET PO PRN (16:44)
--- NOTE | 2020-05-18 16:53 | NUR ---
RN MS NOTES PT IN BED, RESTING, EASY TO AROUSE, LETHARGIC, RESPIRATIONS REGULAR BUT DEEP, O2 SAT OF 99% ON 2LPM VIA N/C, NOTED ELEVATED BP OF 174/86, HR 90, ALSO NOTED WITH EPISODES OF PVC'S ON THE TELE MONITOR, DR. WILLOUGHBY INFORMED, ORDERED STAT ABG, WILL CONTINUE TO MONITOR.
[2020-05-18 17:17] LABS: ABG BASE EXCESS 20.3 mmol/L; ABG OXYGEN SATURATION 96.2 % (92.0-98.5); ABG PCO2 169.4 mmHg (35.0-45.0); ABG PH 7.137 (7.350-7.450); ABG PO2 102.9 mmHg (75.0-100.0); COHb 0.1 % (0.5-1.5); MetHb 0.3 % (0.0-1.5); O2Hb 95.8 % (94.0-97.0); SITE, ABG Left Radial; VENT MODE, BG 28% NC
--- NOTE | 2020-05-18 17:50 | NUR ---
JOB BOSS PT RECEIVED FROM 3RD FLOOR WITH KARMA. REPORT RECEIVED FROM 3W RN. PT BECAME INCREASINGLY LETHARGIC. ABG WAS DRAWN AND PT WAS TRANSFERRED ORDERED BY DR WILLOUGHBY. PLACED ON BIPAP. SETTINGS DISCUSSED WITH DR FARIAS. ABG TO BE DRAWN.
--- NOTE | 2020-05-18 17:50 | NUR ---
RN NOTES PT STILL LETHARGIC, RESPIRATIONS DEEP, ABG RESULTS RELAYED TO DR. WILLOUGHBY AND DR FARIAS, RECEIVED ORDERS FROM DR. WILLOUGHBY TO CANCEL DISCHARGE HOME AND PLACE PT ON BIPAP AND TO TRANSFER TO ICU, TRANSPORTED PT TO ICU WITH ACLS PROTOCOL, ACCOMPANIED BY RT'S, BEDSIDE REPORT GIVEN TO WALT CREDIT OR LOANS OFFICER, PT TRANSFERED WITH ALL BELONGINGS, PT'S ARTHUR INFORMED OF PT'S CHANGE OF CONDITION AND TRANSFER TO ICU, VERBALIZED UNDERSTANDING.
--- NOTE | 2020-05-18 18:00 | NUR ---
RT NOTE PT TRANSFERRED TO ICU AND PLACED ON BIPAP 25/5 18RR 40% POST ABG DUE TO INCREASED CO2. SATURATION 95% HR 122. ALARMS ARE ON AND AUDIBLE. ABG ORDERS 1 HOUR AFTER BEING PLACED ON BIPAP Addendum: 05/18/20 at 1804 by KASSANDRA DUFF RT Amended: Links added.
[2020-05-18 18:41] LABS: ABG BASE EXCESS 13.9 mmol/L; ABG OXYGEN SATURATION 95.6 % (92.0-98.5); ABG PCO2 65.1 mmHg (35.0-45.0); ABG PH 7.417 (7.350-7.450); ABG PO2 73.4 mmHg (75.0-100.0); AaDO2 136.9 mmHg; COHb 0.3 % (0.5-1.5); MetHb 0.1 % (0.0-1.5); O2Hb 95.2 % (94.0-97.0); SITE, ABG Left Brachial; VENT MODE, BG 25/5 40%
--- NOTE | 2020-05-18 19:00 | NUR ---
SCREEN PRINTING STENCIL PREPARER ABG DRAWN AND RESULTS FORWARDED TO DR FARIAS. ORDER FOR ABG IN AM OFF BIPAP. WILL TRY TO KEEP PT ON BIPAP SINCE PT HAD BEEN NONCOMPLIANT WHEN AWAKE. PT BECOMING MOVE AWAKE NOW BUT STILL NOT FOLLOWING COMMANDS.
--- NOTE | 2020-05-18 19:45 | NUR ---
ICU/REIMBURSEMENT SPECIALIST REPORT RECEIVED FROM THE TO DAY NURSE. SEE FLOWSHEET FOR ASSESSMENT, SKIN ISSUES ARE ADDRESSED ON FLOWSHEET ALONG WITH INTERVENTION TO EACH. PT IS ALERT X SELF. PT IS ON BIPAP25/5, FIO2 40%, RATE 18 TOLERATING BIPAP WITH SATURATION AT HIGH 80'S TO LOW 90'S%. WILL MONITOR THIS PT AND HIS SATURATION. PT WAS TURNED AND REPOSITIONED FOR COMFORT AND CARE. NO ACUTE DISTRESS SEEN AT THIS TIME.
--- NOTE | 2020-05-18 20:10 | NUR ---
ICU/ASSEMBLER PIANO WENT IN TO CHECK TEMP. PT HAD A LARGE LOSE STOOL, WAS ABLE TO GRAB STOOL AND PLACE EVERYWHERE IN BED. PT REQUIRED BATH AT THIS TIME WITH EVERYTHING BEING CHANGED. PT WAS TURNED AND REPOSITIONED FOR COMFORT AND CARE.
--- NOTE | 2020-05-18 20:45 | NUR ---
ICU/TRANSPORTATION JOB TITLES CALLED RT BACK TO GET PT'S BREATHING TREATMENT FOR 1930. THIS WAS MISSED DUE TO PT REQUIRING BATH. PT CAME TO GIVE MISSED BREATHING TREATMENT.
--- NOTE | 2020-05-18 21:20 | NUR ---
ICU/WIDE AREA NETWORK ADMINISTRATOR CURRENTLY PT HAS BEEN HAVING LOW BLOOD PRESSURE, 80'S. CALLED DR WILLOUGHBY FOR ORDER OF BOLUS OR LEVO. MD ORDERED 1 LITER NS BOLUS IF BP DOESN'T COME UP THEN START LEVO TO KEEP BP GREATER THAN 90'S. ORDERS WERE PLACED IN COMPUTER. BOLUS WAS STARTED.
[2020-05-18] MEDS ORDERED: IV NS 0.9% 1,000 ML IV PRN (21:30)
[2020-05-18] MEDS: IPRATROPIUM NEB FS 0.5 MG/2.5 ML AMPUL.NEB NEB PRN (21:30)
[2020-05-18] MEDS: ALBUTEROL FS 2.5 MG/0.5 ML VIAL.NEB NEB PRN (21:30)
[2020-05-18] MEDS ORDERED: NOREPINEPHRINE 8MG/250ML RTU 250 ML IV ONE (22:57)
[2020-05-18] MEDS: NOREPINEPHRINE 8 MG in IV NS 0.9% 242 ML IV PRN (23:06)
[2020-05-18] MEDS: MIRTAZAPINE 15 MG TABLET PO SCH (23:32)
[2020-05-18] MEDS: MONTELUKAST SODIUM (10MG) 10 MG TABLET PO SCH (23:32)
[2020-05-19] VITALS (71 sets, daily range): BP systolic 81–145; BP diastolic 33–122
[2020-05-19] MEDS: JEVITY 1.2 CAL 1,000 ML BOTTLE GT PRN (00:53)
[2020-05-19] MEDS: IPRATROPIUM NEB FS 0.5 MG/2.5 ML AMPUL.NEB NEB SCH ×4 (01:10→20:20)
[2020-05-19] MEDS: ALBUTEROL FS 2.5 MG/0.5 ML VIAL.NEB NEB SCH ×4 (01:10→20:21)
--- NOTE | 2020-05-19 01:32 | NUR ---
ICU/PMP CERTIFIED PROJECT MANAGER INCREASED LEVO DUE TO LOW BP AT 81/53. WILL MONITOR THIS PT'S BLOOD PRESSURE
--- NOTE | 2020-05-19 08:55 | NUR ---
received pt from date night caregiver, alert, follows simple commands, on 2L NC now, off of Bipap since 0800, lungs diminished, no edema, GT to feeding tolerates well, receiving levo at 0.3mcg, v/s stable, no pain, pt turned and repositioned.
[2020-05-19] MEDS: NOREPINEPHRINE 8 MG in IV NS 0.9% 242 ML IV PRN (09:48)
[2020-05-19] MEDS: FAMOTIDINE/PF INJ 20 MG/2 ML VIAL IV SCH ×2 (09:57→16:37)
[2020-05-19] MEDS: IV 1/2NS 1000 ML 1,000 ML IV PRN (09:57)
[2020-05-19] MEDS: PROSOURCE / PROSTAT (PYXIS) 30 ML UDC GT SCH ×2 (09:58→16:37)
[2020-05-19] MEDS: Z GUARD REMEDY 2 OZ OINT TP SCH ×2 (09:59→21:18)
[2020-05-19] MEDS: HYDROGEL DRESSING 90 GM TUBE TP SCH (09:59)
[2020-05-19] MEDS: ENOXAPARIN SODIUM 40 MG/0.4 ML DISP.SYRIN SQ SCH (10:01)
--- NOTE | 2020-05-19 19:30 | NUR ---
RN NOTES RECEIVED ASLEEP ON BED. ON BIPAP TOLERATED WELL SATURATION 95%. ST ON TELE MONITOR. NO SOB OR ACUTE RESPIRATORY DISTRESS. DENIES PAIN VSS. AFEBRILE. PEG TUBE WITH FEEDING INTACT AND PATENT. IV SITE ON JESSICA PICC LINE WITH 1/2 NS @ 50 ML/HR . KEPT HOB ELEVATED. KEPT PT CLEAN AND DRY. NEPTALI. SOFT WRIST RESTRAINT KEPT IN PLACED. TURN AND REPOSITION FOR COMFORTABLE WILL CONTINUE TO MONITOR.
[2020-05-19] MEDS: MIRTAZAPINE 15 MG TABLET PO SCH (21:13)
[2020-05-19] MEDS: MONTELUKAST SODIUM (10MG) 10 MG TABLET PO SCH (21:13)
[2020-05-20] VITALS (37 sets, daily range): BP systolic 85–174; BP diastolic 41–113
[2020-05-20] MEDS: IPRATROPIUM NEB FS 0.5 MG/2.5 ML AMPUL.NEB NEB SCH ×4 (01:25→20:16)
[2020-05-20] MEDS: ALBUTEROL FS 2.5 MG/0.5 ML VIAL.NEB NEB SCH ×4 (01:25→20:16)
[2020-05-20 04:40] LABS: EOSINOPHILS % (AUTO) 0.1 % (0.0-6.0); HEMATOCRIT 30 % (39-51); HEMOGLOBIN 9.9 g/dL (13.5-17.5); LYMPHOCYTES # (AUTO) 0.4 /CMM (0.8-4.8); LYMPHOCYTES % (AUTO) 7.5 % (20.0-44.0); MEAN CORPUSCULAR HGB CONC 33 g/dl (31.0-36.0); MEAN CORPUSCULAR VOLUME 96 fL (80-96); MONOCYTES # (AUTO) 0.3 /CMM (0.1-1.30); MONOCYTES % (AUTO) 6.8 % (2.0-12.0); NEUTROPHILS # (AUTO) 4.3 /CMM (1.8-8.9); NEUTROPHILS % (AUTO) 85.6 % (43.0-81.0); PLATELET COUNT (AUTO) 129 /CMM (150-450); RED BLOOD CELL COUNT(AUTO) 3.12 MIL/uL (4.5-6.0)
[2020-05-20 04:52] LABS: CALCIUM, SERUM 8.2 mg/dL (8.5-10.1); CREATININE 0.3 mg/dL (0.6-1.3); POTASSIUM 3.4 mmol/L (3.5-5.1)
[2020-05-20] MEDS: IV 1/2NS 1000 ML 1,000 ML IV PRN (05:29)
[2020-05-20] MEDS: JEVITY 1.2 CAL 1,000 ML BOTTLE GT PRN (05:30)
--- NOTE | 2020-05-20 07:15 | NUR ---
RN NOTES PATIENT REMAINED STABLE WITH BIPAP THE WHOLE NIGHT. DENIES PAIN. VSS. ST ON TELEMONITOR. SATURATION >92%. AFEBRILE . INCONTINENT CARE RENDERED. NEPTALI. SOFT WRIST RESTRAINT RELEASE AND FREQ. REMINDER PROVIDED. NO SIGNIFICANT CHANGES THROUGHOUT THE SHIFT. GTF TOLERATED WELL. KEPT PT CLEAN AND DRY. ENDORSED CONTINUITY OF CARE TO AM NURSE.
[2020-05-20 08:26] LABS: ABG BASE EXCESS 12.9 mmol/L; ABG OXYGEN SATURATION 97.4 % (92.0-98.5); ABG PCO2 54.7 mmHg (35.0-45.0); ABG PH 7.464 (7.350-7.450); ABG PO2 99.1 mmHg (75.0-100.0); AaDO2 123.2 mmHg; COHb 0.3 % (0.5-1.5); MetHb 0.3 % (0.0-1.5); O2Hb 96.8 % (94.0-97.0); SITE, ABG Right Brachial; VENT MODE, BG 25/5 40%
[2020-05-20 08:26] LABS: ABG OXYGEN SATURATION 91.4 % (92.0-98.5); ABG PCO2 70.3 mmHg (35.0-45.0); ABG PH 7.419 (7.350-7.450); ABG PO2 59.3 mmHg (75.0-100.0); AaDO2 57.4 mmHg; COHb 0.3 % (0.5-1.5); MetHb 0.1 % (0.0-1.5); SITE, ABG Right Brachial; VENT MODE, BG N/C @2LPM
--- NOTE | 2020-05-20 08:28 | NUR ---
received pt from cement contractor, alert, confused, on Bipap, sat well, lungs diminished/congested, no edema, GT to feeding, tolerates well, v/s stable, no pain, pt turns and repositions by himself.
[2020-05-20] MEDS: FAMOTIDINE/PF INJ 20 MG/2 ML VIAL IV SCH ×2 (08:36→16:44)
[2020-05-20] MEDS: ENOXAPARIN SODIUM 40 MG/0.4 ML DISP.SYRIN SQ SCH (08:37)
[2020-05-20] MEDS: PROSOURCE / PROSTAT (PYXIS) 30 ML UDC GT SCH ×2 (08:38→16:44)
[2020-05-20] MEDS: HYDROGEL DRESSING 90 GM TUBE TP SCH (08:39)
[2020-05-20] MEDS: Z GUARD REMEDY 2 OZ OINT TP SCH ×2 (08:39→22:27)
[2020-05-20] MEDS: THEOPHYLLINE ANHYDROUS 200 MG TAB.SR.12H PO SCH ×2 (09:00→21:00)
[2020-05-20] MEDS ORDERED: POTASSIUM CHLORIDE 20 MEQ POWDER PACKET GT ONE (09:00)
[2020-05-20] MEDS ORDERED: POTASSIUM CHLORIDE 20 MEQ TAB.PRT.SR PO ONE (09:00)
[2020-05-20] MEDS ORDERED: OLANZAPINE 2.5 MG TABLET PO PRN (09:00)
[2020-05-20 15:23] LABS: ABG BASE EXCESS 11.7 mmol/L; ABG PCO2 65.3 mmHg (35.0-45.0); ABG PH 7.391 (7.350-7.450); ABG PO2 64.3 mmHg (75.0-100.0); AaDO2 29.1 mmHg; COHb 0.3 % (0.5-1.5); MetHb 0.1 % (0.0-1.5); O2Hb 91.6 % (94.0-97.0); SITE, ABG Right Radial; VENT MODE, BG N/C
--- NOTE | 2020-05-20 16:22 | NUR ---
pt is resting in the bed, anxious, confused, SR, on bipap, sat well, tolerates feeding, v/s stable, no pain, pt cleaned, changed and repositioned q2hrs.
--- NOTE | 2020-05-20 22:10 | NUR ---
ICU/HEARING AID SPECIALIST PT WAS GIVEN PM CARE, PT HAD LARGE LOSE STOOL. PT WAS PROVIDED ORAL CARE AT THIS TIME. PT TOLERATED THIS WELL, REMAINS ON CURRENT VENT SETTING WITH SATURATION AT 100%. PT WAS TURNED AND REPOSITIONED FOR COMFORT AND CARE. WILL CONTINUE TO MONITOR THIS PT.
--- NOTE | 2020-05-20 22:20 | NUR ---
RT NOTE Pt rec'd on bipap on settings as charted. Pt shows no signs of resp distress or sob. Mepilex in place. No signs of redness or scarring. Alarms are set and audible. Bipap plugged into red outlet. Ambu bag bedside. Addendum: 05/20/20 at 2222 by ALEXANDRO WILLIAM RT Amended: Links added.
[2020-05-20] MEDS: MIRTAZAPINE 15 MG TABLET PO SCH (22:26)
[2020-05-21] VITALS (44 sets, daily range): BP systolic 69–126; BP diastolic 29–85
--- NOTE | 2020-05-21 00:10 | NUR ---
ICU/HUSBANDRY PERSON PT WAS TURNED AND REPOSITIONED FOR COMFORT AND CARE. PT TOLERATED THIS WELL. REMAINS ON CURRENT BIPAP SETTINGS WITH SATURATION AT 95-100%. PT CONTINUES TO BE MODERATELY CONFUSED.
[2020-05-21] MEDS: IV 1/2NS 1000 ML 1,000 ML IV PRN ×2 (01:26→21:33)
[2020-05-21] MEDS: IPRATROPIUM NEB FS 0.5 MG/2.5 ML AMPUL.NEB NEB SCH ×4 (01:58→20:18)
[2020-05-21] MEDS: ALBUTEROL FS 2.5 MG/0.5 ML VIAL.NEB NEB SCH ×4 (01:58→20:18)
--- NOTE | 2020-05-21 02:55 | NUR ---
ICU/SALES ORDER COORDINATOR PT WAS GIVEN AM CARE, PT HAD LARGE LOSE STOOL. PT WAS PROVIDED ORAL CARE AT THIS TIME. PT TOLERATED THIS WELL, REMAINS ON CURRENT VENT SETTING WITH SATURATION AT 100%. PT WAS TURNED AND REPOSITIONED FOR COMFORT AND CARE. WILL CONTINUE TO MONITOR THIS PT.
[2020-05-21 04:53] LABS: BASOPHILS % (AUTO) 0.1 % (0.0-2.0); EOSINOPHILS % (AUTO) 0.2 % (0.0-6.0); HEMATOCRIT 28 % (39-51); HEMOGLOBIN 9.1 g/dL (13.5-17.5); LYMPHOCYTES # (AUTO) 0.5 /CMM (0.8-4.8); LYMPHOCYTES % (AUTO) 10.3 % (20.0-44.0); MEAN CORPUSCULAR HGB CONC 33 g/dl (31.0-36.0); MEAN CORPUSCULAR VOLUME 96 fL (80-96); MONOCYTES # (AUTO) 0.3 /CMM (0.1-1.30); MONOCYTES % (AUTO) 7.8 % (2.0-12.0); NEUTROPHILS # (AUTO) 3.7 /CMM (1.8-8.9); NEUTROPHILS % (AUTO) 81.6 % (43.0-81.0); PLATELET COUNT (AUTO) 130 /CMM (150-450); RED BLOOD CELL COUNT(AUTO) 2.87 MIL/uL (4.5-6.0); WHITE BLOOD COUNT (AUTO) 4.5 K/uL (4.3-11.0)
--- NOTE | 2020-05-21 05:12 | NUR ---
ICU/PURSE SEINER AM LABS WERE DRAWN, ALONG WITH XRAY. AWAIT FOR ANY ABNORMAL LAB RESULTS.
[2020-05-21 05:15] LABS: CALCIUM, SERUM 8.4 mg/dL (8.5-10.1); CREATININE 0.2 mg/dL (0.6-1.3); POTASSIUM 3.7 mmol/L (3.5-5.1)
--- NOTE | 2020-05-21 08:16 | NUR ---
received pt from store loss prevention manager, alert, confused, follows simple commands, SR, on bipap sat well, GT to feeding tolerates well, v/s stable, no pain, pt turned and repositioned.
[2020-05-21] MEDS: FAMOTIDINE/PF INJ 20 MG/2 ML VIAL IV SCH ×2 (08:48→16:52)
[2020-05-21] MEDS: ENOXAPARIN SODIUM 40 MG/0.4 ML DISP.SYRIN SQ SCH (08:48)
[2020-05-21] MEDS: PROSOURCE / PROSTAT (PYXIS) 30 ML UDC GT SCH ×2 (08:48→16:05)
[2020-05-21] MEDS: Z GUARD REMEDY 2 OZ OINT TP SCH ×2 (08:49→21:32)
[2020-05-21] MEDS: HYDROGEL DRESSING 90 GM TUBE TP SCH (08:50)
[2020-05-21] MEDS: THEOPHYLLINE ANHYDROUS 200 MG TAB.SR.12H PO SCH (08:50)
[2020-05-21] MEDS: THEOPHYLLINE TAB 24HR 400 MG TAB.SR. PO SCH (16:04)
--- NOTE | 2020-05-21 16:12 | NUR ---
pt is resting in the bed, lethargic, SR, on Bipap, sat well, tolerates feeding, v/s stable, no pain, pt cleaned, changed and repositioned.
--- NOTE | 2020-05-21 19:45 | NUR ---
ICU/POLITICAL GEOGRAPHER REPORT RECEIVED FROM THE TO DAY NURSE. SEE FLOWSHEET FOR ASSESSMENT, SKIN ISSUES ARE ADDRESSED ON FLOWSHEET ALONG WITH INTERVENTION TO EACH. PT IS ALERT X SELF, WITH MODERATE CONFUSION. PT IS ON BIPAP25/5, FIO2 40%, RATE 18 TOLERATING BIPAP WITH SATURATION AT 90'S%. WILL MONITOR THIS PT AND HIS SATURATION. PT WAS TURNED AND REPOSITIONED FOR COMFORT AND CARE. NO ACUTE DISTRESS SEEN AT THIS TIME.
--- NOTE | 2020-05-21 20:55 | NUR ---
ICU/SEARCHLIGHT OPERATOR DURING ASSESSMENT THAT PT HAD NASAL BRIDGE SCAB FROM BIPAP MASK, TO BOTH THE LEFT AND RIGHT SIDE OF NOSE. PICTURE DOCUMENTATION WAS DONE AND ADDED TO ASSESSMENT. ALSO AT THIS TIME VENKAT BRUNO WAS ABLE TO HELP AND TRY DIFFERENT MASK TO OFF LOAD PRESSURE FROM NOSE. WASN'T ABLE TO FIND A GOOD FITTING MASK. ADDED MORE MEPILEX TO THE CURRENT BIPAP.
--- NOTE | 2020-05-21 20:58 | NUR ---
ICU/DOUBLE END TRIMMER BIPAP FIO2 WAS DECREASED DOWN TO 30% FROM 40%. WILL MONITOR THIS PT AND HIS SATURATION.
[2020-05-21] MEDS ORDERED: THEOPHYLLINE TAB 24HR 400 MG TAB.SR. PO SCH (21:00)
[2020-05-21] MEDS: MIRTAZAPINE 15 MG TABLET PO SCH (21:33)
[2020-05-22] VITALS (33 sets, daily range): BP systolic 91–147; BP diastolic 60–98
[2020-05-22] MEDS: IPRATROPIUM NEB FS 0.5 MG/2.5 ML AMPUL.NEB NEB SCH ×4 (02:21→20:00)
[2020-05-22] MEDS: ALBUTEROL FS 2.5 MG/0.5 ML VIAL.NEB NEB SCH ×4 (02:21→20:00)
--- NOTE | 2020-05-22 02:30 | NUR ---
ICU/CHUTE WORKER PT WAS GIVEN AM CARE, PT HAD LARGE LOSE STOOL. PT WAS PROVIDED ORAL CARE AT THIS TIME. PT TOLERATED THIS WELL, REMAINS ON CURRENT BIPAP SETTING WITH SATURATION AT 100%. PT WAS TURNED AND REPOSITIONED FOR COMFORT AND CARE. WILL CONTINUE TO MONITOR THIS PT
--- NOTE | 2020-05-22 04:10 | NUR ---
ICU/PATENT EXAMINER AM LABS WERE DRAWN, ALONG WITH XRAY. AWAIT FOR ANY ABNORMAL LAB RESULTS.
[2020-05-22 04:57] LABS: BASOPHILS % (AUTO) 0.1 % (0.0-2.0); EOSINOPHILS % (AUTO) 0.3 % (0.0-6.0); HEMATOCRIT 27 % (39-51); HEMOGLOBIN 8.9 g/dL (13.5-17.5); LYMPHOCYTES # (AUTO) 0.6 /CMM (0.8-4.8); LYMPHOCYTES % (AUTO) 15.7 % (20.0-44.0); MEAN CORPUSCULAR HGB CONC 33 g/dl (31.0-36.0); MEAN CORPUSCULAR VOLUME 96 fL (80-96); MONOCYTES # (AUTO) 0.3 /CMM (0.1-1.30); MONOCYTES % (AUTO) 8.5 % (2.0-12.0); NEUTROPHILS # (AUTO) 2.7 /CMM (1.8-8.9); NEUTROPHILS % (AUTO) 75.4 % (43.0-81.0); PLATELET COUNT (AUTO) 129 /CMM (150-450); RED BLOOD CELL COUNT(AUTO) 2.82 MIL/uL (4.5-6.0); WHITE BLOOD COUNT (AUTO) 3.6 K/uL (4.3-11.0)
[2020-05-22 05:24] LABS: CREATININE 0.3 mg/dL (0.6-1.3); POTASSIUM 3.6 mmol/L (3.5-5.1)
--- NOTE | 2020-05-22 06:35 | NUR ---
ICU/BUILDING ARCHITECTURAL DESIGNER AM LABS SHOWED LOW BLOOD SUGAR OF 56, GAVE ORANGE JUICE AND SUGAR. WILL RECHECK IN 30 MINUTES.
--- NOTE | 2020-05-22 06:44 | NUR ---
ICU/BATCH STILL OPERATOR RECHECK OF BLOOD SUGAR IS 64. WILL CONTINUE TO MONITOR THIS PT AND HIS LABS
--- NOTE | 2020-05-22 07:55 | NUR ---
RN opening note: Received patient in bed and asleep. On continuous Bipap and tolerating prescribed settings well. ON Bilateral soft wrist restraints for behavior identified. Tele monitor showing Sinus Rhythm @ 86bpm. PEG tube in place, patent and intact with feeding of Jevity 1.2 @40mls/hr being tolerated well. IV site clean, dry, patent and intact with IV infusion of 1/2 NS @ 50mls/hr being tolerated well. No pain noted on patient. Call light in reach. Bed locked, low and at semi-nichols's position. Side rails up x3. Safety ensured and observed. Will continue to monitor.
[2020-05-22] MEDS: ENOXAPARIN SODIUM 40 MG/0.4 ML DISP.SYRIN SQ SCH (09:06)
[2020-05-22] MEDS: PROSOURCE / PROSTAT (PYXIS) 30 ML UDC GT SCH ×2 (09:09→18:26)
[2020-05-22] MEDS: FAMOTIDINE/PF INJ 20 MG/2 ML VIAL IV SCH ×2 (09:09→17:08)
[2020-05-22] MEDS: Z GUARD REMEDY 2 OZ OINT TP SCH ×2 (09:10→21:20)
[2020-05-22] MEDS: HYDROGEL DRESSING 90 GM TUBE TP SCH (09:10)
--- NOTE | 2020-05-22 10:00 | NUR ---
RN note: Awaiting delivery of [employer] mattress for patient.
--- NOTE | 2020-05-22 12:44 | NUR ---
RT NOTE Pt rec'd on bipap on settings as charted. Pt shows no signs of resp distress or sob. Mepilex in place. No signs of redness or scarring. Alarms are set and audible. Bipap plugged into red outlet. Ambu bag bedside. Addendum: 05/22/20 at 1244 by ALEXANDRO WILLIAM RT Amended: Links added.
[2020-05-22] MEDS: THEOPHYLLINE TAB 24HR 400 MG TAB.SR. PO SCH (15:28)
[2020-05-22] MEDS: IV 1/2NS 1000 ML 1,000 ML IV PRN (16:43)
[2020-05-22] MEDS: ACETAMINOPHEN 325 MG TABLET PO PRN (17:09)
--- NOTE | 2020-05-22 19:30 | NUR ---
RN NOTES RECEIVED PATIENT IN BED ASLEEP RESPONSIVE TO VERBAL AND TACTILE STIMULI. PATIENT CONTINUES ON BIPAP AND SETTING TOLERATING WELL ORDERED.TELE MONITOR READING ST IN 120'S. ON GTF TOLERATING WELL WITH MINIMAL RESIDUAL NOTED. ON BILATERAL SOFT RESTRAINS RELEASED AND CHECKED FOR CIRCULATION AND PULSE [id number]. ON GOING SKIN TREATMENT SEE FLOW SHEET FOR SKIN ASSESSMENT. JESSICA PICC LINE INTACT PATENT FLUIDS RUNNING WELL. NO S/S OF PAIN OR DISCOMFORT NOTED. SAFETY MEASURES IN PLACE, BED IN LOW AND LOCKED POSITION. SIDE RAILS UPX2 CALL LIGHT WITHIN REACH. WILL CONT TO MONITOR FOR ARTI.
--- NOTE | 2020-05-22 19:41 | NUR ---
RN closing note: No acute changes noted on shift. Was seen by Dr. Mcgregor and Dr. Martinez earlier on shift. Received phone call from regarding visitation and explained to her about current protocols of not allowing visitors due to current pandemic, understood but will try to contact administration regarding the matter. Received call from son indicating agreement to put trach tube on patient based on Dr. Stokes's recommendation. Will endorse to warehouse worker 2nd shift to let Dr. Stokes know of the situation tomorrow. Patient remains in bed and confused. On continuous Bipap and tolerating prescribed settings well. ON Bilateral soft wrist restraints for behavior identified. Tele monitor showing Sinus Tachycardia @ 110 bpm. PEG tube in place, patent and intact with feeding of Jevity 1.2 @40mls/hr being tolerated well. IV site clean, dry, patent and intact with IV infusion of 1/2 NS @ 50mls/hr being tolerated well. No pain noted on patient. Patient refused oral gratification ordered. Call light in reach. Bed locked, low and at semi-nichols's position. Side rails up x3. Safety ensured and observed. Due medications given. Treatment given as ordered. Endorsed to oncoming shift for ARTI.
[2020-05-22] MEDS: MIRTAZAPINE 15 MG TABLET PO SCH (21:18)
[2020-05-22] MEDS: JEVITY 1.2 CAL 1,000 ML BOTTLE GT PRN (21:22)
[2020-05-23] VITALS (53 sets, daily range): BP systolic 60–175; BP diastolic 40–115
[2020-05-23] MEDS: IPRATROPIUM NEB FS 0.5 MG/2.5 ML AMPUL.NEB NEB SCH ×4 (02:25→19:30)
[2020-05-23] MEDS: ALBUTEROL FS 2.5 MG/0.5 ML VIAL.NEB NEB SCH ×4 (02:25→19:30)
[2020-05-23] MEDS: ACETAMINOPHEN 325 MG TABLET PO PRN (04:23)
--- NOTE | 2020-05-23 07:09 | NUR ---
RN NOTES PATIENT IN BED RESTING ALERT AWAKE ORIENTED X2. ON BIPAP AND NEW SETTING TOLERATING WELL ORDERED. PATIENT WAS DESATURATING RT AWARE FIO2 INCREASED TO 100% TOLERATING WELL AND SATURATING 99% AT THIS TIME. ROUTINE MEDICATIONS WERE GIVEN ALONG WITH PRN TOLERATED WELL. GTF TOLERATING WELL.ON BILATERAL SOFT RESTRAINS RELEASED AND CHECKED FOR CIRCULATION AND PULSE Q2 HOURS. JESSICA PICC LINE INTACT PATENT FLUIDS RUNNING WELL. NO S/S OF PAIN OR DISCOMFORT NOTED. SAFETY MEASURES IN PLACE, BED IN LOW AND LOCKED POSITION. SIDE RAILS UPX2 CALL LIGHT WITHIN REACH. WILL ENDORSE TO AM NURSE FOR ARTI.
--- NOTE | 2020-05-23 07:20 | NUR ---
RN OPENING NOTE: RECEIVED PATIENT IN BED THIS MORNING. PATIENT IS ALERT AND ORIENTED X2, RESPONDS APPROPRIATELY. PATIENT IS ON BIPAP, TOLERATING SETTINGS WELL AT THIS TIME, NO SIGNS OF ACUTE RESPIRATOR DISTRESS NOTED. SR IN THE 80S NOTED ON BEDSIDE MONITOR. BILATERAL WRIST RESTRAINTS IMPLICATED D/T PATIENT TRYING TO REMOVE OXYGEN TUBING. WOUND CARE PER ORDERS. GTF JEVITY 1.2 @ 40CC/HR, NO RESIDUAL UPON ASPIRATION. JESSICA PICC LINE, FLUSHING WELL, C/D/I, NO SIGNS OF COMPLICATIONS NOTED. SAFETY MEASURES IMPLEMENTED, BED IN LOWEST POSITION, LOCKED, SIDE RAILS UP X2, CALL LIGHT WITHIN REACH. WILL CONTINUE TO MONITOR PATIENT FOR CHANGES.
[2020-05-23] MEDS: PROSOURCE / PROSTAT (PYXIS) 30 ML UDC GT SCH ×2 (08:19→17:17)
[2020-05-23] MEDS: Z GUARD REMEDY 2 OZ OINT TP SCH ×2 (08:19→20:07)
[2020-05-23] MEDS: FAMOTIDINE/PF INJ 20 MG/2 ML VIAL IV SCH ×2 (08:19→17:17)
[2020-05-23] MEDS: HYDROGEL DRESSING 90 GM TUBE TP SCH (08:20)
--- NOTE | 2020-05-23 08:29 | NUR ---
DR WILLOUGHBY NOTIFIED OF PLATELET COUNT [phone], OK TO GIVE LOVENOX. ALSO INFORMED TO CONTACT SON IN REGARDS TO POSSIBLE TRACH PLACEMENT.
[2020-05-23] MEDS: ENOXAPARIN SODIUM 40 MG/0.4 ML DISP.SYRIN SQ SCH (08:33)
[2020-05-23] MEDS: LEVOFLOXACIN (500MG) 500 MG TABLET PEG SCH (09:26)
[2020-05-23] MEDS: IV 1/2NS 1000 ML 1,000 ML IV PRN (12:09)
[2020-05-23] MEDS: PROPOFOL 100 ML IV PRN ×3 (12:13→23:10)
[2020-05-23 12:18] LABS: ABG BASE EXCESS 11.5 mmol/L; ABG PCO2 53.6 mmHg (35.0-45.0); ABG PH 7.457 (7.350-7.450); ABG PO2 78.2 mmHg (75.0-100.0); AaDO2 72.7 mmHg; COHb 0.3 % (0.5-1.5); O2Hb 95.7 % (94.0-97.0); SITE, ABG Right Radial; VENT MODE, BG Bipap 18/5 30% RR18
--- NOTE | 2020-05-23 12:52 | NUR ---
PATIENT'S RESPIRATORY STATUS STARTED DECLINING AROUND 11:00. DR ACOSTA RE-INTUBATED PATIENT. STAT CXR ORDERED. PLACEMENT VERIFIED. SON AWARE OF STATUS AND SPOKE WITH MD. PROPOFOL ORDERED. WILL CONTINUE TO CLOSELY MONITOR PATIENT FOR CHANGES. Addendum: 05/23/20 at 1306 by DORIAN NETTLES RN DR WILLOUGHBY AWARE. DR ACOSTA AWARE OF CONTACTING DR [facility] FOR TRACH PLACEMENT AND TO INPUT ORDERS TO RETRIEVE CONSENT FROM FAMILY.
--- NOTE | 2020-05-23 13:21 | NUR ---
PER ADELINE CARLOS TO TITRATE PROPOFOL UP TO 100MCG/KG/MIN
[2020-05-23] MEDS ORDERED: NOREPINEPHRINE 8 MG in IV NS 0.9% 242 ML IV PRN (14:00)
[2020-05-23] MEDS ORDERED: IV NS 0.9% 1,000 ML IV ONE (14:00)
[2020-05-23] MEDS: NOREPINEPHRINE 8 MG in IV D5W 250 ML IV PRN (14:15)
[2020-05-23] MEDS: NEOMY SULF/BACITRAC ZN/POLY 15 GM TUBE TP SCH (15:56)
[2020-05-23] MEDS: THEOPHYLLINE TAB 24HR 400 MG TAB.SR. PO SCH (15:56)
--- NOTE | 2020-05-23 19:28 | NUR ---
RN CLOSING NOTE: PATIENT REMAINS IN ROOM. TOLERATING VENT SETTINGS WELL. SR IN 60S ON BEDSIDE MONITOR. NO SIGNS OF ACUTE DISTRESS NOTED AT THIS TIME. SAFETY MEASURES IMPLEMENTED, BED IN LOWEST POSITION, LOCKED, SIDE RAILS UP, CALL LIGHT WITHIN REACH. ENDORSED TO PAUL THOMAS FOR CONTINUITY OF CARE AND TO PLACE PATIENT NPO AFTER MN FOR AM TRACH PLACEMENT. CONSENTS IN THE CHART, PRE OP CHECK LIST NEEDS TO BE FILLED OUT.
--- NOTE | 2020-05-23 19:30 | NUR ---
RN NOTES RECEIVED PATIENT IN BED INTUBATED ON DIPRIVAN FOR SEDATION TOLERATING WELL. BREATHING NORMAL NO SOB NOTED. RESPIRATION NON LABORED. TELE MONITOR READING SR IN 60'S. JESSICA PICC LINE CLEAN AND DRY FLUIDS RUNNING WELL. ON GTF NO RESIDUAL NOTED TOLERATING WELL. CONDOM CATH INTACT YELLOW RUNNING WELL TO GRAVITY. BILATERAL SOFT RESTRAINS IN PLACE RELEASED AND CHECKED FOR CIRCULATION AND PULSE [id number].ON GOING SKIN TREATMENT SEE FLOW SHEET FOR SKIN ASSESSMENT. SAFETY MEASURES IN PLACE, SIDE RAILS UP X3, CALL LIGHT WITHIN REACH. WILL CONT TO MONITOR FOR ARTI.
[2020-05-23] MEDS: IPRATROPIUM NEB FS 0.5 MG/2.5 ML AMPUL.NEB NEB PRN (20:30)
[2020-05-23] MEDS: ALBUTEROL FS 2.5 MG/0.5 ML VIAL.NEB NEB PRN (20:30)
[2020-05-23] MEDS: MIRTAZAPINE 15 MG TABLET PO SCH (22:28)
[2020-05-24] VITALS (94 sets, daily range): BP systolic 74–144; BP diastolic 36–78
[2020-05-24] MEDS: ALBUTEROL FS 2.5 MG/0.5 ML VIAL.NEB NEB SCH ×4 (01:40→20:09)
[2020-05-24] MEDS: IPRATROPIUM NEB FS 0.5 MG/2.5 ML AMPUL.NEB NEB SCH ×4 (01:40→20:09)
[2020-05-24] MEDS: PROPOFOL 100 ML IV PRN ×4 (04:24→20:26)
[2020-05-24 04:28] LABS: BASOPHILS % (AUTO) 0.2 % (0.0-2.0); EOSINOPHILS % (AUTO) 0.7 % (0.0-6.0); HEMATOCRIT 26 % (39-51); HEMOGLOBIN 8.7 g/dL (13.5-17.5); LYMPHOCYTES # (AUTO) 0.3 /CMM (0.8-4.8); LYMPHOCYTES % (AUTO) 14.2 % (20.0-44.0); MEAN CORPUSCULAR HGB CONC 33 g/dl (31.0-36.0); MEAN CORPUSCULAR VOLUME 95 fL (80-96); MONOCYTES # (AUTO) 0.4 /CMM (0.1-1.30); MONOCYTES % (AUTO) 15.4 % (2.0-12.0); NEUTROPHILS # (AUTO) 1.6 /CMM (1.8-8.9); NEUTROPHILS % (AUTO) 69.5 % (43.0-81.0); PLATELET COUNT (AUTO) 112 /CMM (150-450); RED BLOOD CELL COUNT(AUTO) 2.78 MIL/uL (4.5-6.0); WHITE BLOOD COUNT (AUTO) 2.3 K/uL (4.3-11.0)
[2020-05-24 04:39] LABS: CALCIUM, SERUM 8.2 mg/dL (8.5-10.1); CREATININE 0.2 mg/dL (0.6-1.3)
[2020-05-24 04:46] LABS: POTASSIUM 2.6 mmol/L (3.5-5.1)
[2020-05-24 05:47] LABS: BAND % (MANUAL) 3 % (0.0-5.0); EOSINOPHILS % (MANUAL) 1 % (0-4); LYMPHOCYTES % (MANUAL) 15 % (16-48); MONOCYTES % (MANUAL) 12 % (0-11.0); NEUTROPHILS % (MANUAL) 69 (42-76)
[2020-05-24] MEDS: IV 1/2NS 1000 ML 1,000 ML IV PRN ×2 (06:46→18:01)
--- NOTE | 2020-05-24 06:55 | NUR ---
PATTERNMAKER SAMPLE NOTES POTASSIUM LEVEL 2.[address] WILLOUGHBY. WITH NEW ORDER FOR REPLACEMENT WITH KCL IV 40MEQ BOLUS. ORDER READ BACK FOR CLARIFICATION. NURSE TO CARRY OUT ORDERS PRESCRIBED
--- NOTE | 2020-05-24 07:15 | NUR ---
DERRICK BOAT LEVERMAN NOTES RECEIVED PATIENT SEDATED , RESPONSIVE TO PAIN STIMULI , NOT IN ACUTE DISTRESS , RESPIRATIONS EVEN AND UNLABORED WITH SPO2 OF 100% VIA MECHANICAL VENT SETTINGS ORDERED , ETT 7.5/[address] , SB 55 ON BESIDE MONITOR , CONDOM CATH INTACT DRAINING WITH CLEAR YELLOW URINE , GT PATENT AND INTACT CLAMPED , JESSICA PICC LINE WITH DIPRIVAN @ 80MCG/KG/MIN , LEVOPHED @ 0.18MCG/KG/MIN , 1/2 NS @ 50ML/HR INFUSING WELL , WILL CONTINUE TO MONITOR
--- NOTE | 2020-05-24 07:17 | NUR ---
RN NOTES PATIENT REMAINED INTUBATED ON DIPRIVAN TOLERATING WELL. NO S/S OF ACUTE DISTRESS NOTED. GTF OFF AFTER MIDNIGHT FOR TRACHEOSTOMY PLACEMENT TODAY AT 0900. VITAL SIGNS REMAINED WNL. TELE MONITOR READING SR IN 55-60'S. JESSICA PICC LINE PATENT INTACT FLUSHING WELL. SKIN CARE PROVIDED TOLERATED WELL. WOUND CARE PROVIDED ORDERED. SAFETY MEASURES IN PLACE, SIDE RAILS [id number] LIGHT WITHIN REACH, WILL ENDORSE TO AM NURSE FOR ARTI.
[2020-05-24] MEDS: POTASSIUM CL. PREMIX PERIPHER. 50 ML IV SCH ×4 (07:23→10:37)
[2020-05-24] MEDS: FAMOTIDINE/PF INJ 20 MG/2 ML VIAL IV SCH ×2 (08:00→16:15)
[2020-05-24] MEDS: ENOXAPARIN SODIUM 40 MG/0.4 ML DISP.SYRIN SQ SCH (08:06)
[2020-05-24] MEDS: LEVOFLOXACIN (500MG) 500 MG TABLET PEG SCH (08:06)
[2020-05-24] MEDS: PROSOURCE / PROSTAT (PYXIS) 30 ML UDC GT SCH ×2 (08:06→16:13)
[2020-05-24] MEDS: NEOMY SULF/BACITRAC ZN/POLY 15 GM TUBE TP SCH (08:08)
[2020-05-24] MEDS: Z GUARD REMEDY 2 OZ OINT TP SCH ×2 (08:08→20:37)
[2020-05-24] MEDS: HYDROGEL DRESSING 90 GM TUBE TP SCH (08:09)
[2020-05-24 08:28] LABS: ABG BASE EXCESS 10.4 mmol/L; ABG OXYGEN SATURATION 97.5 % (92.0-98.5); ABG PCO2 54.7 mmHg (35.0-45.0); ABG PH 7.436 (7.350-7.450); ABG PO2 96.2 mmHg (75.0-100.0); AaDO2 198.8 mmHg; COHb 0.1 % (0.5-1.5); MetHb 0.1 % (0.0-1.5); O2Hb 97.3 % (94.0-97.0); SITE, ABG Right Radial; VENT MODE, BG AC 22 400 +5 50%
--- NOTE | 2020-05-24 09:00 | NUR ---
PRESSURE TANK OPERATOR NOTES SEEN AND EVALUATED BY DR WILLOUGHBY , DR ACOSTA , DISCUSSED LABS , PENDING TRACH PLACEMENT , CURRENTLY REPLACING K WITH POTASSIUM CHLORINE IV 40MEQ ORDERED , TOLERATING MECHANICAL VENT SETTINGS ORDERED , ON LEVOPHED 0.8MCG/KG/MIN , DIPRIVAN @ 80MCG/KG/MIN ONGOING SEDATION VACATIONS PER PROTOCOL , GOOD URINE OUTPUT , AFEBRILE AWARE ,
[2020-05-24] MEDS ORDERED: VECURONIUM 10 MG VIAL ONE (09:06)
[2020-05-24] MEDS ORDERED: ETOMIDATE 2 MG/ML VIAL ONE (09:06)
--- NOTE | 2020-05-24 09:15 | NUR ---
RETIREMENT MANAGER NOTES PT ON SEDATION VACATION , STABLE AT THIS TIME , STILL NON RESPONSIVE , NO DISTRESS , WILL CONTINUE TO MONITOR
--- NOTE | 2020-05-24 10:21 | NUR ---
BLENDING TANK HELPER NOTES SEDATION RESTARTED RR IS 30-35 , HR OF 140'S ST , PT STILL UNRESPONSIVE VERBALLY , RESPONSIVE TO PAIN STIMULI NOTED WITH FACIAL GRIMACE . WILL CONTINUE TO MONITOR
--- NOTE | 2020-05-24 10:30 | NUR ---
BULLET SWAGING MACHINE ADJUSTER NOTES HR SB 55 TO SR 65 , NOTED WITH ARTIFACTS , LEADS CHANGED , WIRING CHANGED , STILL NOTED WITH ARTIFACTS , CALLED ENGINEERING FOR TROUBLES SHOOT , WILL CONTINUE TO MONITOR
--- NOTE | 2020-05-24 11:00 | NUR ---
FLUORESCENT SOLUTION MIXER NOTES STILL NOTED WITH ARTIFACTS , HR 60 SR , REGULAR IN RATE , NO SEIZURES NOTED , PT CALM , NO MOVEMENT NOTED , ENGINEERING CALLED ,
[2020-05-24] MEDS: NOREPINEPHRINE 8 MG in IV D5W 250 ML IV PRN ×2 (14:39→21:46)
[2020-05-24] MEDS: THEOPHYLLINE TAB 24HR 400 MG TAB.SR. PO SCH (15:03)
--- NOTE | 2020-05-24 15:36 | NUR ---
TAX ADVISOR received a call from pts' requested a verification of admission letter for her to provide to the [facility] in [facility]. TAX ADVISOR conducted chart review and typed the letter and e-mailed it to the at per her request.
--- NOTE | 2020-05-24 17:32 | NUR ---
ENVIRONMENTAL HEALTH AND SAFETY MANAGER NOTES RECEIVED A CALL FROM JAYDEN PULIDO , PER ASHOK PT WILL NOT BE TRANSFERRED TODAY TO [facility]UTE [facility] .
--- NOTE | 2020-05-24 19:30 | NUR ---
RN NOTES RECEIVED PATIENT IN BED SEDATED RESPONSIVE TO PAIN STIMULI. BREATHING NORMAL NO S/S OF DISTRESS NOTED. ON VENT SETTING TOLERATING WELL ORDERED. TELE MONITOR READING SR IN 66'S. GT CLAMPED, JESSICA PICC LINE PATENT INTACT DIPRIVAN AND LEVOPHED AND FLUID RUNNING WELL. CONDOM CATH INTACT DARNING WELL. SKIN WARM AND DRY TO TOUCH. SAFETY MEASURES IN PLACE, SIDE RAILS UP X3, BED IN LOW AND LOCKED POSITION. CALL LIGHT WITHIN REACH. WILL CONT TO MONITOR FOR ARTI.
[2020-05-24] MEDS: MIRTAZAPINE 15 MG TABLET PO SCH (21:29)
--- NOTE | 2020-05-24 22:00 | NUR ---
REMERON NON ADMINISTERED PATIENT IS NPO GTF ON HOLD.
[2020-05-25] VITALS (97 sets, daily range): BP systolic 76–142; BP diastolic 55–88
[2020-05-25] MEDS: IPRATROPIUM NEB FS 0.5 MG/2.5 ML AMPUL.NEB NEB SCH ×4 (01:50→20:23)
[2020-05-25] MEDS: ALBUTEROL FS 2.5 MG/0.5 ML VIAL.NEB NEB SCH ×4 (01:50→20:22)
[2020-05-25 04:21] LABS: BASOPHILS % (AUTO) 0.1 % (0.0-2.0); EOSINOPHILS % (AUTO) 0.1 % (0.0-6.0); HEMATOCRIT 29 % (39-51); HEMOGLOBIN 9.8 g/dL (13.5-17.5); LYMPHOCYTES # (AUTO) 0.2 /CMM (0.8-4.8); LYMPHOCYTES % (AUTO) 5.4 % (20.0-44.0); MEAN CORPUSCULAR HGB CONC 34 g/dl (31.0-36.0); MEAN CORPUSCULAR VOLUME 95 fL (80-96); MONOCYTES # (AUTO) 0.4 /CMM (0.1-1.30); MONOCYTES % (AUTO) 8.8 % (2.0-12.0); NEUTROPHILS # (AUTO) 3.5 /CMM (1.8-8.9); NEUTROPHILS % (AUTO) 85.6 % (43.0-81.0); PLATELET COUNT (AUTO) 106 /CMM (150-450); RED BLOOD CELL COUNT(AUTO) 3.01 MIL/uL (4.5-6.0); WHITE BLOOD COUNT (AUTO) 4.1 K/uL (4.3-11.0)
[2020-05-25 04:32] LABS: CALCIUM, SERUM 8.2 mg/dL (8.5-10.1); CREATININE 0.4 mg/dL (0.6-1.3); MAGNESIUM 1.8 mg/dL (1.8-2.4); POTASSIUM 3.2 mmol/L (3.5-5.1)
[2020-05-25] MEDS: PROPOFOL 100 ML IV PRN ×4 (05:18→22:50)
[2020-05-25] MEDS: IV 1/2NS 1000 ML 1,000 ML IV PRN (06:45)
--- NOTE | 2020-05-25 07:01 | NUR ---
RN NOTES PATIENT REMAINED INTUBATED NO S/S OF ACUTE DISTRESS NOTED ON SHIFT. VENT SETTING TOLERATING WELL ORDERED. NO S/S OF PAIN NOTED. IV'S INTACT PATIENT FLUIDS RUNNING WELL. CONDOM CATH INTACT DARNING WELL. SKIN WARM AND DRY TO TOUCH. SAFETY MEASURES IN PLACE, SIDE RAILS UP X3, BED IN LOW AND LOCKED POSITION. CALL LIGHT WITHIN REACH. WILL ENDORSE TO AM NURSE FOR ARTI.
--- NOTE | 2020-05-25 07:15 | NUR ---
LICENSED PROSTHETIST NOTES RECEIVED PATIENT SEDATED , RESPONSIVE TO PAIN STIMULI , NOT IN ACUTE DISTRESS , RESPIRATIONS EVEN AND UNLABORED WITH SPO2 OF 100% VIA MECHANICAL VENT SETTINGS ORDERED , ETT 7.5/[address] , ON BESIDE MONITOR , CONDOM CATH INTACT DRAINING WITH CLEAR YELLOW URINE , GT PATENT AND INTACT CLAMPED , JESSICA PICC LINE WITH DIPRIVAN @ 50MCG/KG/MIN , LEVOPHED @ 0.2MCG/KG/MIN , 1/2 NS @ 75ML/HR INFUSING WELL , WILL CONTINUE TO MONITOR
[2020-05-25] MEDS: LEVOFLOXACIN (500MG) 500 MG TABLET PEG SCH ×2 (08:39→09:24)
[2020-05-25] MEDS: NEOMY SULF/BACITRAC ZN/POLY 15 GM TUBE TP SCH (08:39)
[2020-05-25] MEDS: PROSOURCE / PROSTAT (PYXIS) 30 ML UDC GT SCH ×3 (08:39→16:26)
[2020-05-25] MEDS: Z GUARD REMEDY 2 OZ OINT TP SCH ×2 (08:40→21:03)
[2020-05-25] MEDS: HYDROGEL DRESSING 90 GM TUBE TP SCH (08:40)
[2020-05-25] MEDS: ENOXAPARIN SODIUM 40 MG/0.4 ML DISP.SYRIN SQ SCH (08:40)
--- NOTE | 2020-05-25 08:40 | NUR ---
LABOR REPRESENTATIVE NOTES DIPRIVAN @ 5MCG/KG/MIN , PT NOTED WITH MILD AGITATION , TRACKS ABLE TO FOLLOW SIMPLE COMMANDS , RR 35-37 CPM , VENT ALARMING , , WILL INCREASE SEDATION PER PROTOCOL .
[2020-05-25] MEDS: FAMOTIDINE/PF INJ 20 MG/2 ML VIAL IV SCH ×2 (08:45→16:27)
[2020-05-25] MEDS: NOREPINEPHRINE 8 MG in IV D5W 250 ML IV PRN ×2 (08:54→10:01)
--- NOTE | 2020-05-25 09:11 | NUR ---
HVAC MECHANICAL ENGINEER NOTES SEEN AND EVALUATED BY DR WILLOUGHBY , DISCUSSED PT LABS , ON VENT SETTINGS ORDERED TOLERATING WELL WITH NO DISTRESS , , PT OFF SEDATION TRACKS , ABLE TO FOLLOW SIMPLE COMMANDS BUT NOTED WITH DISTRESS , RR 30-35CPM , AFEBRILE , ON LEVOPHED @ 0.2MCG/KG/MIN , STILL NPO DUE TO PENDING TRACH PLACEMENT , NOTIFIED THAT FAMILY WANTS TO TRANSFER PT TO ANOTHER HOSPITAL , PER MD HE WILL PUT ORDER FOR IVF WITH KCL REPLACEMENT , CHANGE LEVOPHED PARAMETERS TO KEEP SBP ABOVE 95 MMHG , RESUME PREVIOUS TUBE FEEDING , ORDERS CARRIED OUT
[2020-05-25] MEDS ORDERED: POTASSIUM CHLORIDE 10 MEQ/50 ML PREMIXED IVPB FOR PERIPHERAL LINE IV ONE (09:30)
[2020-05-25] MEDS: POTASSIUM CL. PREMIX PERIPHER. 50 ML IV SCH ×2 (09:40→11:00)
[2020-05-25] MEDS: MIDODRINE HCL (5MG) 5 MG TABLET PO SCH ×3 (09:40→16:26)
[2020-05-25] MEDS: ENOXAPARIN SODIUM 30 MG/0.3 ML DISP.SYRIN SQ SCH (09:49)
[2020-05-25] MEDS: Potassium Chloride 20 MEQ in IV NS 0.9% 1,000 ML IV PRN ×2 (11:00→18:01)
[2020-05-25] MEDS: JEVITY 1.2 CAL 1,000 ML BOTTLE GT PRN (11:50)
--- NOTE | 2020-05-25 13:08 | NUR ---
GEOPHYSICAL PARTY CHIEF NOTES RICARDO SAMPSON APPLIED PT NOTED TO BE HYPOTHERMIC @ 95F . WILL CONTINUE TO MONITOR
[2020-05-25] MEDS: THEOPHYLLINE TAB 24HR 400 MG TAB.SR. PO SCH (14:14)
--- NOTE | 2020-05-25 19:30 | NUR ---
INSIDE UPHOLSTERER OPENING NOTES: Received pt sedated, on mechanical ventilation, tolerating settings well. No SOB or respiratory distress noted. SB/SR on tele monitor. On CUSTOMER MARKETING ASSISTANT restraints. Will remove and check circulation per protocol. JESSICA PICC line patent and flushing with Levo running at 0.22mcg/kg/min. Will titrate per protocol to keep SBP >90. Diprivan infusing at 80mcg/kg/min. NS w/ KCl infusing at 100ml/hr. Tolerating well. Dressing c/d/i. GT feeding of Jevit at 40ml/hr. Tolerating well. Minimal residual noted. Condom cath in place draining urine via gravity. Safety measures in place. Will continue to monitor.
[2020-05-25] MEDS: MIRTAZAPINE 15 MG TABLET PO SCH (21:03)
[2020-05-26] VITALS (90 sets, daily range): BP systolic 69–169; BP diastolic 46–96
[2020-05-26] MEDS: ALBUTEROL FS 2.5 MG/0.5 ML VIAL.NEB NEB SCH ×4 (02:21→20:18)
[2020-05-26] MEDS: IPRATROPIUM NEB FS 0.5 MG/2.5 ML AMPUL.NEB NEB SCH ×4 (02:21→20:18)
--- NOTE | 2020-05-26 03:45 | NUR ---
RT NOTE Pt Rec'd orally intubated via ETT #7.5 secured at 24CM at the lipline. Pt on [facility] vent on AC mode settings as charted. Pt shows no signs of resp distress or sob. sx'd for mod amt of pale yellow secretions. Alarms are set and audible. Vent plugged into red outlet. Ambu bag bedside. Will continue to monitor. Addendum: 05/26/20 at 0345 by ALEXANDRO WILLIAM RT Amended: Links added.
[2020-05-26] MEDS: PROPOFOL 100 ML IV PRN ×4 (03:56→18:40)
[2020-05-26] MEDS: Potassium Chloride 20 MEQ in IV NS 0.9% 1,000 ML IV PRN ×2 (04:03→16:25)
[2020-05-26 04:14] LABS: BASOPHILS % (AUTO) 0.1 % (0.0-2.0); EOSINOPHILS % (AUTO) 0.2 % (0.0-6.0); HEMATOCRIT 27 % (39-51); LYMPHOCYTES # (AUTO) 0.4 /CMM (0.8-4.8); LYMPHOCYTES % (AUTO) 8.2 % (20.0-44.0); MEAN CORPUSCULAR HGB CONC 33 g/dl (31.0-36.0); MEAN CORPUSCULAR VOLUME 97 fL (80-96); MONOCYTES # (AUTO) 0.4 /CMM (0.1-1.30); MONOCYTES % (AUTO) 8.9 % (2.0-12.0); NEUTROPHILS # (AUTO) 3.6 /CMM (1.8-8.9); NEUTROPHILS % (AUTO) 82.6 % (43.0-81.0); PLATELET COUNT (AUTO) 98 /CMM (150-450); RED BLOOD CELL COUNT(AUTO) 2.78 MIL/uL (4.5-6.0); WHITE BLOOD COUNT (AUTO) 4.3 K/uL (4.3-11.0)
[2020-05-26 04:29] LABS: CALCIUM, SERUM 7.6 mg/dL (8.5-10.1); CREATININE 0.5 mg/dL (0.6-1.3); POTASSIUM 4.4 mmol/L (3.5-5.1)
[2020-05-26 05:09] LABS: EOSINOPHILS % (MANUAL) 1 % (0-4); LYMPHOCYTES % (MANUAL) 7 % (16-48); MONOCYTES % (MANUAL) 5 % (0-11.0); NEUTROPHILS % (MANUAL) 87 (42-76)
--- NOTE | 2020-05-26 06:41 | NUR ---
LANDSCAPE ACCOUNT MANAGER CLOSING NOTES: Pt remains on mechanical ventilation, tolerating well. No SOB or respiratory distress noted. No acute changes noted during shift. JESSICA PICC line patent and flushing. Levo infusing at 0.24 mcg/kg/min. Titrated per protocol. Diprivan infusing at 80mcg/kg/min. NS w/ KCl infusing at 100ml/hr. Tolerating well. GTF infusing. No residuals noted. Condom cath patent and draining urine. Wound tx as ordered. All meds administered as prescribed. Safety measures in place. Will endorse to AM nurse for ARTI.
--- NOTE | 2020-05-26 07:50 | NUR ---
WOUND CARE CONSULT: PT SEEN FOR LEFT HEEL DISCOLORATION AND RT HEEL REDNESS. HEELS HAVE DUSKY COLOR AND BLANCHABLE REDNESS. HEELS FLOATED. DISCUSSED SKIN PROTECTION WITH NURSING STAFF. PT IS ON FIRST STEP BANNER AIRLOSS MATTRESS. WILL SEE PRN. BATEMAN IN AGREEMENT WITH PLAN OF CARE.
[2020-05-26] MEDS: MIDODRINE HCL (5MG) 5 MG TABLET PO SCH ×3 (08:44→16:25)
[2020-05-26] MEDS: FAMOTIDINE/PF INJ 20 MG/2 ML VIAL IV SCH ×2 (08:44→16:27)
[2020-05-26] MEDS: LEVOFLOXACIN (500MG) 500 MG TABLET PEG SCH (08:44)
[2020-05-26] MEDS: PROSOURCE / PROSTAT (PYXIS) 30 ML UDC GT SCH ×2 (08:44→16:28)
[2020-05-26] MEDS: HYDROGEL DRESSING 90 GM TUBE TP SCH (08:44)
[2020-05-26] MEDS: Z GUARD REMEDY 2 OZ OINT TP SCH ×2 (08:45→21:42)
[2020-05-26] MEDS: NEOMY SULF/BACITRAC ZN/POLY 15 GM TUBE TP SCH (08:45)
[2020-05-26] MEDS: ENOXAPARIN SODIUM 30 MG/0.3 ML DISP.SYRIN SQ SCH (08:46)
--- NOTE | 2020-05-26 09:35 | NUR ---
received pt from weight shifter, sedated on Diprivan at 80mcg, SR, ST, intubated, on the vent, lungs diminished, no edema, GT to feeding, tolerates well, F/C inserted for distended blader, notified, receiving levo at 0.24mcg, v/s stable, no pain, pt turned and repositioned, seen by Dr. Salamanca.
[2020-05-26] MEDS: NOREPINEPHRINE 8 MG in IV D5W 250 ML IV PRN ×4 (12:37→22:28)
--- NOTE | 2020-05-26 16:00 | NUR ---
pt sedated on Diprivan at 60mcg, ST, receiving levo at 0.3mcg, tolerates feeding, v/s stable, no pain, pt cleaned, changed and repositioned.
[2020-05-26] MEDS: JEVITY 1.2 CAL 1,000 ML BOTTLE GT PRN (16:47)
--- NOTE | 2020-05-26 19:00 | NUR ---
RECEIVED PATIENT ORALLY INTUBATED ON AC MODE , SEDATED WITH PROPOFOL DRIP ,+ COUGH WHEN SUCTIONED,+ WEAK GAG,NOT IN ANY RESPIRATORY DISTRESS,BREATHING REGULAR AND NON LABORED.ON LEVOPHED DRIP FOR BP SUPPORT.PICC LINE @ JESSICA ,DRESSING DRY AND INTACT,WITH GOOD BLOOD RETURN.G TUBE INTACT WITH ON GOING FEEDING,ASPIRATION PRECAUTION OBSERVED,FEEDING RESIDUALS MONITORED.
[2020-05-27] VITALS (95 sets, daily range): BP systolic 64–169; BP diastolic 44–84
--- NOTE | 2020-05-27 | NUR ---
STATUS UNCHANGED,REMAINS SEDATED,RESPONDS TO PAIN AND DEEP SUCTIONING,GRIMACES,+ COUGH. WILL TRY TO WEAN DOWN LEVOPHED DRIP TOLERATED.
[2020-05-27] MEDS: Potassium Chloride 20 MEQ in IV NS 0.9% 1,000 ML IV PRN ×2 (02:03→12:27)
[2020-05-27] MEDS: ALBUTEROL FS 2.5 MG/0.5 ML VIAL.NEB NEB SCH ×4 (02:18→19:53)
[2020-05-27] MEDS: IPRATROPIUM NEB FS 0.5 MG/2.5 ML AMPUL.NEB NEB SCH ×4 (02:18→19:53)
[2020-05-27] MEDS: PROPOFOL 100 ML IV PRN ×2 (03:37→11:42)
--- NOTE | 2020-05-27 04:00 | NUR ---
AM CARE DONE. EASILY GETS HYPOTENSIVE WHEN LEVOPHED DRIP IS VERY BRIEFLY OFF( DURING BLOOD DRAWING FROM THE PICC LINE).
[2020-05-27 04:20] LABS: BASOPHILS % (AUTO) 0.1 % (0.0-2.0); EOSINOPHILS % (AUTO) 0.4 % (0.0-6.0); HEMATOCRIT 25 % (39-51); HEMOGLOBIN 8.1 g/dL (13.5-17.5); LYMPHOCYTES # (AUTO) 0.6 /CMM (0.8-4.8); LYMPHOCYTES % (AUTO) 14.8 % (20.0-44.0); MEAN CORPUSCULAR HGB CONC 33 g/dl (31.0-36.0); MEAN CORPUSCULAR VOLUME 98 fL (80-96); MONOCYTES # (AUTO) 0.3 /CMM (0.1-1.30); MONOCYTES % (AUTO) 8.2 % (2.0-12.0); NEUTROPHILS # (AUTO) 2.9 /CMM (1.8-8.9); NEUTROPHILS % (AUTO) 76.5 % (43.0-81.0); PLATELET COUNT (AUTO) 94 /CMM (150-450); RED BLOOD CELL COUNT(AUTO) 2.51 MIL/uL (4.5-6.0); WHITE BLOOD COUNT (AUTO) 3.7 K/uL (4.3-11.0)
[2020-05-27 04:52] LABS: CALCIUM, SERUM 7.7 mg/dL (8.5-10.1); CREATININE 0.4 mg/dL (0.6-1.3); POTASSIUM 4.1 mmol/L (3.5-5.1)
[2020-05-27 05:28] LABS: BAND % (MANUAL) 20 % (0.0-5.0); EOSINOPHILS % (MANUAL) 2 % (0-4); LYMPHOCYTES % (MANUAL) 12 % (16-48); MONOCYTES % (MANUAL) 8 % (0-11.0); NEUTROPHILS % (MANUAL) 58 (42-76)
--- NOTE | 2020-05-27 07:00 | NUR ---
REMAINS STABLE,STILL INTUBATED ,SEDATED.PROPOFOL NOW AT 40 MCG/KG/MIN. NOW MORE RESPONSIVE,OPENS EYES TO PAIN.REPORT GIVEN TO CHANEL MILLER
--- NOTE | 2020-05-27 08:31 | NUR ---
received pt from retail shift supervisor, sedated on Diprivan at 40mcg, SR, intubated, sat well, lungs diminished, BL hand edema, GT to feeding, f/c good output, receiving levo at 0.25mcg, v/s stable, no pain, pt turned and repositioned, seen by Dr Salamanca.
[2020-05-27] MEDS ORDERED: predniSONE 20 MG TABLET PO SCH (09:00)
[2020-05-27] MEDS: NOREPINEPHRINE 8 MG in IV D5W 250 ML IV PRN (09:06)
[2020-05-27] MEDS: FAMOTIDINE/PF INJ 20 MG/2 ML VIAL IV SCH ×2 (09:28→16:43)
[2020-05-27] MEDS: MIDODRINE HCL (5MG) 5 MG TABLET PO SCH ×5 (09:29→16:44)
[2020-05-27] MEDS: PROSOURCE / PROSTAT (PYXIS) 30 ML UDC GT SCH ×2 (09:30→16:43)
[2020-05-27] MEDS: HYDROGEL DRESSING 90 GM TUBE TP SCH (09:30)
[2020-05-27] MEDS: NEOMY SULF/BACITRAC ZN/POLY 15 GM TUBE TP SCH (09:31)
[2020-05-27] MEDS: Z GUARD REMEDY 2 OZ OINT TP SCH ×2 (09:31→21:49)
--- NOTE | 2020-05-27 16:19 | NUR ---
pt is resting in the bed, sedated on Diprivan at 40mcg, SR, receiving levo at 0.06mcg, one unit PRBCs transfused no transfusion reaction, tolerates feeding, f/c good output, v/s stable, no pain, pt cleaned, changed and repositioned q2hrs.
--- NOTE | 2020-05-27 19:25 | NUR ---
ICU/AIR GRINDER PT'S FAMILY CAME TO LOBBY, WAS GIVEN PT'S CELL PHONE AND POUND ATTENDANT. THIS WAS DONE BY DAY SHIFT NURSE CHANEL Rodriguez
--- NOTE | 2020-05-27 19:45 | NUR ---
ICU/POSTDOCTORAL RESEARCH FELLOW REPORT RECEIVED FROM THE TO DAY NURSE. SEE FLOWSHEET FOR ASSESSMENT, SKIN ISSUES ARE ADDRESSED ON FLOWSHEET ALONG WITH INTERVENTION TO EACH. PT IS PROPERLY SEDATED ON DIPRIVAN. PT IS ORALLY INTUBATED WITH SATURATION AT 100'S%. WILL MONITOR THIS PT AND HIS SATURATION. PT WAS TURNED AND REPOSITIONED FOR COMFORT AND CARE. NO ACUTE DISTRESS SEEN AT THIS TIME. PT IS CURRENTLY ON LEVO TO KEEP SBP GREATER THAN 90.
--- NOTE | 2020-05-27 21:00 | NUR ---
ICU/SHEET CUTTING OPERATOR TALKED TO AND DAUGHTER AT GREAT LENGTHS. WOULD LIKE TO HAVE MD CALL THEM BACK. MD HASN'T CALLED THEM WITH ANY UPDATES FOR A FEW DAYS. FAMILY IS VOICING CONCERN. ALSO AT THIS TIME FAMILY WOULD LIKE TO SEE HIM. VOICED THAT THEY KNOW OTHERS FAMILY HAVE BEEN TO SEE [facility] IN THE HOSPITAL AND WOULD LIKE SAME TREATMENT. WILL PASS ON TO NEXT NURSE TO HAVE MD CALL FAMILY AND SEE IF MD CAN ARRANGE A VISIT TO SEE PT. ALSO EXPLAIN DUE TO INCREASE OF COVID-19 CASES THAT IT WOULDN'T BE A GOOD THING DUE TO POSSIBILITY OF GIVING THE PT THE VIRUS, SINCE HE HAS BEEN NEGATIVE SINCE HIS HOSPITAL STAY. DAUGHTER UNDERSTOOD, HOWEVER WOULD STILL LIKE TO SEE THE PT.
[2020-05-28] VITALS (43 sets, daily range): BP systolic 79–142; BP diastolic 48–79
[2020-05-28] MEDS: IPRATROPIUM NEB FS 0.5 MG/2.5 ML AMPUL.NEB NEB SCH ×4 (00:51→19:11)
[2020-05-28] MEDS: ALBUTEROL FS 2.5 MG/0.5 ML VIAL.NEB NEB SCH ×4 (00:51→19:11)
[2020-05-28] MEDS: PROPOFOL 100 ML IV PRN ×2 (01:36→21:00)
[2020-05-28] MEDS: Potassium Chloride 20 MEQ in IV NS 0.9% 1,000 ML IV PRN ×3 (01:36→20:40)
[2020-05-28] MEDS: JEVITY 1.2 CAL 1,000 ML BOTTLE GT PRN (04:45)
[2020-05-28 05:17] LABS: ALBUMIN 1.5 g/dL (3.4-5.0); BILIRUBIN,TOTAL 0.4 mg/dL (0.2-1.0); CALCIUM, SERUM 7.5 mg/dL (8.5-10.1); CREATININE 0.3 mg/dL (0.6-1.3); POTASSIUM 3.7 mmol/L (3.5-5.1); TOTAL PROTEIN, SERUM 4.6 g/dL (6.4-8.2)
[2020-05-28 05:22] LABS: BASOPHILS % (AUTO) 0.2 % (0.0-2.0); EOSINOPHILS % (AUTO) 0.2 % (0.0-6.0); HEMATOCRIT 26 % (39-51); HEMOGLOBIN 8.6 g/dL (13.5-17.5); LYMPHOCYTES # (AUTO) 0.6 /CMM (0.8-4.8); LYMPHOCYTES % (AUTO) 18.3 % (20.0-44.0); MEAN CORPUSCULAR HGB CONC 33 g/dl (31.0-36.0); MEAN CORPUSCULAR VOLUME 95 fL (80-96); MONOCYTES # (AUTO) 0.3 /CMM (0.1-1.30); MONOCYTES % (AUTO) 9.7 % (2.0-12.0); NEUTROPHILS # (AUTO) 2.5 /CMM (1.8-8.9); NEUTROPHILS % (AUTO) 71.6 % (43.0-81.0); PLATELET COUNT (AUTO) 83 /CMM (150-450); RED BLOOD CELL COUNT(AUTO) 2.71 MIL/uL (4.5-6.0); WHITE BLOOD COUNT (AUTO) 3.5 K/uL (4.3-11.0)
[2020-05-28 05:37] LABS: BAND % (MANUAL) 4 % (0.0-5.0); LYMPHOCYTES % (MANUAL) 12 % (16-48); MONOCYTES % (MANUAL) 9 % (0-11.0); NEUTROPHILS % (MANUAL) 75 (42-76)
[2020-05-28] MEDS: NOREPINEPHRINE 8 MG in IV D5W 250 ML IV PRN (06:34)
--- NOTE | 2020-05-28 07:00 | NUR ---
RN NOTES RECEIVED PT ON BED, ORALLY INTUBATED AND SEDATED, TOLERATING CURRENT VENT SETTING WELL, O2 SAT WNL, ON DIPRIVAN AT 20MCG/KG/MIN, LEVO AT .06 MCG/KG/MIN, IVF AT 100CC/HR RUNNING VIA R UPPER PICC LINE, SITE CLEAN, DRY AND INTACT , TF AT 40CC/HR RUNNING VIA GT , NO RESIDUAL NOTED , ON TELE SB HR IN 50'S , PINEDA DRAINING TO GRAVITY , SR UP x3, CALL LIGHT WITHIN EASY REACH , BED LOCKED AND IN LOWEST POSITION , CONTINUE TO MONITOR .
[2020-05-28] MEDS: FAMOTIDINE/PF INJ 20 MG/2 ML VIAL IV SCH ×2 (08:28→17:00)
[2020-05-28] MEDS: MIDODRINE HCL (5MG) 5 MG TABLET PO SCH ×4 (08:29→17:01)
[2020-05-28] MEDS: HYDROGEL DRESSING 90 GM TUBE TP SCH (08:29)
[2020-05-28] MEDS: Z GUARD REMEDY 2 OZ OINT TP SCH ×2 (08:31→21:02)
[2020-05-28] MEDS: NEOMY SULF/BACITRAC ZN/POLY 15 GM TUBE TP SCH (08:31)
[2020-05-28] MEDS: PROSOURCE / PROSTAT (PYXIS) 30 ML UDC GT SCH ×2 (08:33→17:00)
--- NOTE | 2020-05-28 10:00 | NUR ---
RN NOTES DR WILLOUGHBY NOTIFIED REGARDING LOW URINE OUTPUT , NO NEW ORDER RECEIVED .CONTINUE TO MONITOR .
[2020-05-28] MEDS: ALBUMIN 25% 25 GM in PREMIX 1 EA IV SCH ×2 (11:35→21:35)
--- NOTE | 2020-05-28 14:00 | NUR ---
RN NOTES LEVO OFF AT THIS TIME , BP STABLE, PT STILL ON DIPRIVAN FOR SEDATION, DR WILLOUGHBY NOTIFIED.
--- NOTE | 2020-05-28 18:18 | NUR ---
RN NOTES PT REMAINS INTUBATED AND ON SEDATED, ON DIPRIVAN AT 15 MCG/KG/MIN, PT IS OFF LEVO GTT , VSS STABLE, R UPPER ARM PICC LINE SITE CLEAN, DRY AND INTACT , PINEDA DRINING TO GRAVITY, IVF NS WITH 20 MEQ KCL RUNNING AT 100CC/HR , SR UPx3, CALL LIGHT WITHIN EASY REACH, BED LOCKED AND IN LOWEST POSITION, WILL ENDORSE TO ZYGLO TECHNICIAN NURSE FOR CONTINUITY OF CARE .
--- NOTE | 2020-05-28 19:23 | NUR ---
RT NOTE PT RECEIVED INTUBATED WITH 7.5 @ 24 CM ON LEFT LIP LINE. MOVED ET TUBE TO MID LIP LINE. ANCHOR FAST REPLACED. TX GIVEN, NO ADVERSE REACTIONS NOTED. SX DONE, ET TUBE SECURED AND PATENT. ALARMS ON AND AUDIBLE. VENT PLUGGED TO RED OUTLET. AMBU BAG @ HOB. NO DISTRESS NOTED AT THIS TIME. WILL CONTINUE TO MONITOR. Addendum: 05/28/20 at 1925 by DEWAYNE DUFF RT Amended: Links added.
--- NOTE | 2020-05-28 20:00 | NUR ---
OIL DISTRIBUTOR NOTE RECEIVED PT IN BED SEDATED. ETT /VENT ON. TOLERATING THE SETTINGS WELL. ABLE TO OPEN EYES WHEN TOUCHED. NO DISTRESS OR DISCOMFORT NOTED. NO S/S OF PAIN NOTED. ON TELE SRB 51 WITH T WAVE ELEVATED. GT INTACT AND PATENT INFUSING JEVITY 1.2 GABRIEL AT 40 ML/HR, 0 ML RESIDUAL NOTED. DIPRIVAN 20 MCG/KG/MIN INFUSING JESSICA PICC LINE. F/C INTACT AND PATENT DRAINING YELLOWISH COLOR URINE. NS WITH 20 KCL INFUSING AT 100 ML/HR. REPOSITION HIM Q2H, KEPT HIM DRY AND CLEAN. ALL NEEDS ATTENDED. SIDE RAILS UP X 2 AND CALL LIGHT WITHIN REACH. CONTINUE TO MONITOR HIM.
[2020-05-29] VITALS (40 sets, daily range): BP systolic 93–151; BP diastolic 55–89
[2020-05-29] MEDS: ALBUTEROL FS 2.5 MG/0.5 ML VIAL.NEB NEB SCH ×4 (01:27→19:47)
[2020-05-29] MEDS: IPRATROPIUM NEB FS 0.5 MG/2.5 ML AMPUL.NEB NEB SCH ×4 (01:27→19:47)
[2020-05-29 04:42] LABS: BASOPHILS % (AUTO) 0.2 % (0.0-2.0); EOSINOPHILS % (AUTO) 0.8 % (0.0-6.0); HEMATOCRIT 26 % (39-51); HEMOGLOBIN 8.5 g/dL (13.5-17.5); LYMPHOCYTES # (AUTO) 0.5 /CMM (0.8-4.8); LYMPHOCYTES % (AUTO) 21.8 % (20.0-44.0); MEAN CORPUSCULAR HGB CONC 33 g/dl (31.0-36.0); MEAN CORPUSCULAR VOLUME 95 fL (80-96); MONOCYTES # (AUTO) 0.3 /CMM (0.1-1.30); NEUTROPHILS # (AUTO) 1.5 /CMM (1.8-8.9); NEUTROPHILS % (AUTO) 65.2 % (43.0-81.0); PLATELET COUNT (AUTO) 72 /CMM (150-450); RED BLOOD CELL COUNT(AUTO) 2.69 MIL/uL (4.5-6.0); WHITE BLOOD COUNT (AUTO) 2.2 K/uL (4.3-11.0)
[2020-05-29] MEDS: JEVITY 1.2 CAL 1,000 ML BOTTLE GT PRN (04:52)
[2020-05-29 05:02] LABS: CALCIUM, SERUM 7.6 mg/dL (8.5-10.1); CREATININE 0.3 mg/dL (0.6-1.3); MAGNESIUM 1.9 mg/dL (1.8-2.4); POTASSIUM 3.1 mmol/L (3.5-5.1)
[2020-05-29 05:52] LABS: BAND % (MANUAL) 7 % (0.0-5.0); LYMPHOCYTES % (MANUAL) 18 % (16-48); MONOCYTES % (MANUAL) 11 % (0-11.0); NEUTROPHILS % (MANUAL) 64 (42-76)
--- NOTE | 2020-05-29 06:26 | NUR ---
ANTICHECKING IRON WORKER NOTE PT IN BED ASLEEP, AROUSABLE. CALM AND COOPERATIVE. NO DISTRESS OR DISCOMFORT NOTED. TOLERATING ETT/VENT SETTINGS. GT FEEDING INFUSING WELL. ON DIPRIVAN 30 MCG/KG/MIN. F/C INTACT AND PATENT DRAINING YELLOWISH COLOR URINE. ON TELE MONITOR ST 107. SOFT WRIST RESTRAINTS ON. REPOSITION HIM Q2H, KEPT HIM DRY AND CLEAN. SIDE RAILS UP X 3 AND CALL LIGHT WITHIN REACH. WILL ENDORSE TO DAY SHIFT NURSE FOR CONTINUE TO CARE.
--- NOTE | 2020-05-29 07:05 | NUR ---
RN NOTES RECEIVED PT ON BED, ORALLY INTUBATED AND SEDATED, TOLERATING CURRENT VENT SETTING WELL, O2 SAT WNL, ON DIPRIVAN AT 30MCG/KG/MIN, IVF AT 100CC/HR RUNNING VIA R UPPER PICC LINE, SITE CLEAN, DRY AND INTACT , TF AT 40CC/HR RUNNING VIA GT , NO RESIDUAL NOTED , ON TELE SB HR IN 60'S , PINEDA DRAINING TO GRAVITY , SR UP x3, CALL LIGHT WITHIN EASY REACH , BED LOCKED AND IN LOWEST POSITION , CONTINUE TO MONITOR .
[2020-05-29] MEDS: Potassium Chloride 20 MEQ in IV NS 0.9% 1,000 ML IV PRN ×2 (07:20→16:10)
[2020-05-29] MEDS: PROPOFOL 100 ML IV PRN ×3 (07:20→21:56)
[2020-05-29] MEDS: FAMOTIDINE/PF INJ 20 MG/2 ML VIAL IV SCH (08:21)
[2020-05-29] MEDS: MIDODRINE HCL (5MG) 5 MG TABLET PO SCH ×3 (08:21→16:10)
[2020-05-29] MEDS: PROSOURCE / PROSTAT (PYXIS) 30 ML UDC GT SCH ×2 (08:23→16:10)
[2020-05-29] MEDS: NEOMY SULF/BACITRAC ZN/POLY 15 GM TUBE TP SCH (08:24)
[2020-05-29] MEDS: HYDROGEL DRESSING 90 GM TUBE TP SCH (08:24)
[2020-05-29] MEDS: Z GUARD REMEDY 2 OZ OINT TP SCH ×2 (08:24→20:25)
[2020-05-29] MEDS ORDERED: POTASSIUM CHLORIDE 20 MEQ POWDER PACKET GT ONE (09:00)
[2020-05-29] MEDS: PANTOPRAZOLE 40 MG VIAL IV SCH (09:26)
--- NOTE | 2020-05-29 10:00 | NUR ---
RN NOTES SPOKEN TO PT ON THE PHONE, REGARDING POSSIBLE TRANSFER TO [facility] TODAY PER DR CASE EL.
--- NOTE | 2020-05-29 12:00 | NUR ---
RN NOTES VSS STABLE, ET SUCTIONING DONE , O2 SAT WNL, CONTINUE TO MONITOR .
--- NOTE | 2020-05-29 14:00 | NUR ---
RN NOTES, PT IS RESTLESS AND AGITATED AT THIS , DIPRIVAN AT 60 MCG/KG/MIN AT THIS TIME, CONTINUE TO MONITOR .
--- NOTE | 2020-05-29 18:32 | NUR ---
RN NOTES PT REMAINS INTUBATED AND SEDATED, DIPRIVAN AT 30 MCG/KG/MIN RUNNING , ON TELE SR HR IN 70'S , PINEDA DRAINING TO GRAVITY, PT HAD TWO FORM BOWEL MOVEMENT ON THIS SHIFT, TOLERATING TF AT 40 CC/HR WELL, SR UP x3, CALL LIGHT WITHIN EASY REACH, BED LOCKED AND IN LOWEST POSITION, WILL ENDOSE TO EQUIPMENT RECORDS SUPERVISOR NURSE FOR CONTINUITY OF CARE .
--- NOTE | 2020-05-29 19:30 | NUR ---
DEPENDENCY COUNSELOR INITIAL SHIFT NOTES RECEIVED PATIENT IN BED, LIGHTLY SEDATED ON DIPRIVAN GTT CURRENTLY @ 30MCG/KG/MIN, ORALLY INTUBATED ON MECHANICAL VENTILATION, SETTINGS ORDERED, TOLERATING WELL, NO RESPIRATORY DISTRESS NOTED AT THIS TIME. BEDSIDE TELEMETRY MONITORING SHOWS SINUS RHYTHM. GT PATENT AND INTACT, ONGOING TUBE FEEDINGS AT PRESCRIBED RATE, TOLERATING WELL, MINIMAL STRAW COLORED GASTRIC RESIDUALS (<10ML). HOB KEPT ELEVATED FOR ASPIRATION PRECAUTIONS. WILL MONITOR PATIENT CLOSELY
--- NOTE | 2020-05-29 20:26 | NUR ---
RT NOTE PT RECEIVED INTUBATED WITH 7.5 @ 24 CM ON MID LIP LINE. MOVED ET TUBE TO LEFT LIP LINE. TX GIVEN, NO ADVERSE REACTIONS NOTED. SX DONE, ET TUBE SECURED AND PATENT. ALARMS ON AND AUDIBLE. VENT PLUGGED TO RED OUTLET. LAZU BAG @ HOB. NO DISTRESS NOTED AT THIS TIME. WILL CONTINUE TO MONITOR. Addendum: 05/29/20 at 2025 by DEWAYNE DUFF RT Amended: Links added.
--- NOTE | 2020-05-29 22:00 | NUR ---
CARTOONIST SPECIAL EFFECTS NOTES PATIENT NOTED WITH BOWEL MOVEMENT, SOFT BROWN/MUCOID IN COLOR AND CONSISTENCY. PARTIAL BED BATH RENDERED, TOLERATED WELL. WILL MONITOR CLOSELY
[2020-05-30] VITALS (46 sets, daily range): BP systolic 86–139; BP diastolic 55–86
[2020-05-30] MEDS: Potassium Chloride 20 MEQ in IV NS 0.9% 1,000 ML IV PRN ×3 (01:35→22:00)
[2020-05-30] MEDS: ALBUTEROL FS 2.5 MG/0.5 ML VIAL.NEB NEB SCH ×4 (01:37→19:30)
[2020-05-30] MEDS: IPRATROPIUM NEB FS 0.5 MG/2.5 ML AMPUL.NEB NEB SCH ×4 (01:37→19:30)
[2020-05-30 04:28] LABS: BASOPHILS % (AUTO) 0.2 % (0.0-2.0); EOSINOPHILS % (AUTO) 0.6 % (0.0-6.0); HEMATOCRIT 27 % (39-51); LYMPHOCYTES # (AUTO) 0.4 /CMM (0.8-4.8); LYMPHOCYTES % (AUTO) 16.5 % (20.0-44.0); MEAN CORPUSCULAR HGB CONC 33 g/dl (31.0-36.0); MEAN CORPUSCULAR VOLUME 95 fL (80-96); MONOCYTES # (AUTO) 0.4 /CMM (0.1-1.30); MONOCYTES % (AUTO) 14.3 % (2.0-12.0); NEUTROPHILS # (AUTO) 1.8 /CMM (1.8-8.9); NEUTROPHILS % (AUTO) 68.4 % (43.0-81.0); PLATELET COUNT (AUTO) 76 /CMM (150-450); RED BLOOD CELL COUNT(AUTO) 2.88 MIL/uL (4.5-6.0); WHITE BLOOD COUNT (AUTO) 2.6 K/uL (4.3-11.0)
[2020-05-30 04:46] LABS: CALCIUM, SERUM 7.7 mg/dL (8.5-10.1); CREATININE 0.2 mg/dL (0.6-1.3); MAGNESIUM 1.8 mg/dL (1.8-2.4)
[2020-05-30 04:51] LABS: POTASSIUM 2.8 mmol/L (3.5-5.1)
[2020-05-30 05:12] LABS: MONOCYTES % (MANUAL) 10 % (0-11.0); NEUTROPHILS % (MANUAL) 73 (42-76)
[2020-05-30 05:13] LABS: LYMPHOCYTES % (MANUAL) 17 % (16-48)
--- NOTE | 2020-05-30 05:57 | NUR ---
RUN BOAT OPERATOR NOTES - POTASSIUM POTASSIUM LEVEL THIS AM = 2.8. RESULT RELAYED TO DR SHAO. BATEMAN WITH NEW ORDER TO REPLACE ELECTROLYTES WITH KCL IV 40 MEQ AND KLORCON POWDER 40MEQ VIA GT X1. ORDERS READ BACK FOR CLARIFICATION. WILL CARRY OUT ALL NEW ORDERS
[2020-05-30] MEDS ORDERED: POTASSIUM CHLORIDE 20 MEQ POWDER PACKET GT ONE (06:00)
[2020-05-30] MEDS: POTASSIUM CL. PREMIX PERIPHER. 50 ML IV SCH ×4 (06:17→09:34)
[2020-05-30] MEDS: PROPOFOL 100 ML IV PRN ×3 (06:31→22:00)
--- NOTE | 2020-05-30 07:30 | NUR ---
EDITOR FARM JOURNAL INITIAL NOTE RECEIVED PATIENT AWAKE, FOLLOWS SIMPLE COMMANDS, NO S/S OF PAIN OR DISCOMFORT. NO DISTRESS NOTED. ETT IN PLACE, TOLERATING CURRENT VENT SETTINGS. PEG TUBE IN PLACE, TOLERATING GTF. ON TELE MONITOR SINUS TACH. SKIN WARM AND DRY TO TOUCH. F/C IN PLACE, DRAINING BY GRAVITY. BILATERAL WRIST RESTRAINTS ON, CIRCULATION GOOD. HOB ELEVATED. TURNED AND REPOSITIONED. WILL CONTINUE TO MONITOR.
[2020-05-30] MEDS: PANTOPRAZOLE 40 MG VIAL IV SCH (08:29)
[2020-05-30] MEDS: MIDODRINE HCL (5MG) 5 MG TABLET PO SCH ×3 (08:29→17:10)
[2020-05-30] MEDS: HYDROGEL DRESSING 90 GM TUBE TP SCH (08:29)
[2020-05-30] MEDS: NEOMY SULF/BACITRAC ZN/POLY 15 GM TUBE TP SCH (08:29)
[2020-05-30] MEDS: PROSOURCE / PROSTAT (PYXIS) 30 ML UDC GT SCH ×2 (08:30→17:11)
[2020-05-30] MEDS: Z GUARD REMEDY 2 OZ OINT TP SCH ×2 (08:30→21:18)
--- NOTE | 2020-05-30 08:45 | NUR ---
LEVEL VIAL CURVATURE GAUGER NOTE RECEIVED CALL FROM DR WILLOUGHBY, WITH NEW ORDERS TO GIVE PATIENT ALBUMIN 25GM ONE TIME NOW. NOTED
[2020-05-30] MEDS ORDERED: ALBUMIN 25% 25 GM in PREMIX 1 EA IV ONE (09:00)
[2020-05-30] MEDS ORDERED: ALBUMIN 25% 12.5 GM/50 ML BOTTLE IV ONE ×2 (09:00→11:30)
[2020-05-30] MEDS ORDERED: Midodrine Hcl (5MG) PO (11:19)
[2020-05-30] MEDS ORDERED: PRED20TA GT (11:32)
[2020-05-30] MEDS ORDERED: ALBUMIN 25% 12.5 GM in PREMIX 1 EA IV ONE (12:00)
--- NOTE | 2020-05-30 12:10 | NUR ---
ADJUSTER ELECTRICAL CONTACTS NOTE RECEIVED CALL FROM [employer] WITH AMIKACIN TROUGH 8.0, RELAYED RESULT TO PHARMACY. Addendum: 05/30/20 at 1910 by ANNMARIE LIU RN wrong patient
[2020-05-30] MEDS: JEVITY 1.2 CAL 1,000 ML BOTTLE GT PRN (12:41)
[2020-05-30] MEDS: predniSONE 20 MG TABLET PO SCH (12:42)
--- NOTE | 2020-05-30 16:54 | NUR ---
RT NOTE Pt received orally intubated via 7.5 Ett @ 24 cm on mechanical ventilation. Alarms are set and audible w bvm @ hob. Pt sx'd and hhn tx's given w no adverse reactions. Pt is stable. No respiratory distress noted t/o shift. Addendum: 05/30/20 at 1824 by LIUDMILA PLATA RT Amended: Links added.
--- NOTE | 2020-05-30 19:10 | NUR ---
FORMS DESIGNER CLOSING NOTE NO DISTRESS NOTED. PENDING TRANSFER TO [facility]. TOLERATING CURRENT VENT SETTINGS. ETT IN PLACE. TOLERATING GTF. F/C PATENT AND DRAINING BY GRAVITY. KEPT CLEAN AND DRY. TURNED AND REPOSITIONED Q2 AND PRN. ALL DUE MEDS GIVEN. HOB ELEVATED. BILATERAL WRIST RESTRAINTS IN PLACE. SIDE RAILS UP AND LOCKED. BED KEPT AT LOWEST POSITION. CONTINUITY OF CARE ENDORSED TO PM NURSE.
--- NOTE | 2020-05-30 19:15 | NUR ---
SAMPLE SAWYER NOTE RECEIVED PATIENT IN BED RESTING WITH HOB ELEVATED, NON-VERBAL, SEDATED ON DIPRIVAN @ 30 MCG/KG/MIN. BREATHING EVEN AND NON-LABORED, NO SOB NOTED. VENT DEPENDANT. ON BILATERAL SOFT WRIST RESTRAINTS. IV SITE ON JESSICA PICC IS CLEAN, DRY, AND PATENT. ON PINEDA, URINE IS CLEAR AND YELLOW IN COLOR. ON GTF JEVITY RUNNING AT 40 ML/HR. RESIDUAL IS < 5 ML. IN NO APPARENT DISTRESS NOTED AT THIS TIME. WILL CONTINUE TO MONITOR.
[2020-05-31] VITALS (51 sets, daily range): BP systolic 79–160; BP diastolic 49–99
--- NOTE | 2020-05-31 | NUR ---
MARKETING AMBASSADOR NOTE INCREASED PATIENT'S PROPOFOL MED AT THIS TIME ORDERED. PATIENT NOTED STILL AWAKE AND TRYING TO PULL OUT TUBES.
[2020-05-31] MEDS: IPRATROPIUM NEB FS 0.5 MG/2.5 ML AMPUL.NEB NEB SCH ×4 (02:27→19:54)
[2020-05-31] MEDS: ALBUTEROL FS 2.5 MG/0.5 ML VIAL.NEB NEB SCH ×4 (02:27→19:54)
--- NOTE | 2020-05-31 04:00 | NUR ---
SPEED RUNNER NOTE PATIENT TOLERATED BED BATH WELL AT THIS TIME. NO BM NOTED. ALL WOUND CARE RENDERED. WILL CONTINUE TO MONITOR.
[2020-05-31] MEDS: PROPOFOL 100 ML IV PRN ×4 (04:07→23:41)
--- NOTE | 2020-05-31 06:43 | NUR ---
RESIDENTIAL CAREGIVER NOTE PATIENT REMAINED STABLE THROUGHOUT THE NIGHT. NO SIGNIFICANT CHANGES NOTED. PATIENT IS KEPT CLEAN, DRY, AND COMFORTABLE. DIPRIVAN TITRATED ORDERED. REPOSITIONED Q2H OR TOLERATED. IN NO APPARENT DISTRESS NOTED AT THIS TIME. WILL ENDORSE TO AM SHIFT RN FOR CONTINUATION OF CARE.
--- NOTE | 2020-05-31 07:30 | NUR ---
ICU/RN PT IS INTUBATED ON THE VENT ,AC MODE,FIO2-30%.SAT O2-100%.V/S STABLE,AFEBRILE.NO PAIN REPORTED AT THIS TIME.PT IS SEDATED ON PROPOFOL.G-TUBE INFUSING WITH JEVITY AT 40 ML/HR.NO RESIDUAL NOTED.F/C IN PLACE DRAINING WITH YELLOW URINE.SUCTION PROVIDED.REPOSITION FOR COMFORT. AM LABS ORDERED.
[2020-05-31] MEDS: PROSOURCE / PROSTAT (PYXIS) 30 ML UDC GT SCH ×2 (08:05→16:42)
[2020-05-31] MEDS: predniSONE 20 MG TABLET PO SCH (08:05)
[2020-05-31] MEDS: PANTOPRAZOLE 40 MG VIAL IV SCH (08:05)
[2020-05-31] MEDS: MIDODRINE HCL (5MG) 5 MG TABLET PO SCH ×3 (08:05→16:42)
[2020-05-31] MEDS: HYDROGEL DRESSING 90 GM TUBE TP SCH (08:06)
[2020-05-31] MEDS: NEOMY SULF/BACITRAC ZN/POLY 15 GM TUBE TP SCH (08:06)
[2020-05-31] MEDS: Z GUARD REMEDY 2 OZ OINT TP PRN (08:07)
[2020-05-31] MEDS: Z GUARD REMEDY 2 OZ OINT TP SCH ×2 (08:07→20:39)
[2020-05-31 08:24] LABS: ABG BASE EXCESS 4.9 mmol/L; ABG PCO2 42.4 mmHg (35.0-45.0); ABG PH 7.456 (7.350-7.450); ABG PO2 88.2 mmHg (75.0-100.0); AaDO2 75.9 mmHg; COHb 0.3 % (0.5-1.5); MetHb 0.3 % (0.0-1.5); O2Hb 96.4 % (94.0-97.0); SITE, ABG Left Brachial; VENT MODE, BG ac 22 400 30% +5
[2020-05-31 08:39] LABS: BASOPHILS % (AUTO) 0.2 % (0.0-2.0); EOSINOPHILS % (AUTO) 0.7 % (0.0-6.0); HEMATOCRIT 26 % (39-51); HEMOGLOBIN 8.3 g/dL (13.5-17.5); LYMPHOCYTES # (AUTO) 0.5 /CMM (0.8-4.8); LYMPHOCYTES % (AUTO) 17.5 % (20.0-44.0); MEAN CORPUSCULAR HGB CONC 33 g/dl (31.0-36.0); MEAN CORPUSCULAR VOLUME 96 fL (80-96); MONOCYTES # (AUTO) 0.3 /CMM (0.1-1.30); MONOCYTES % (AUTO) 11.3 % (2.0-12.0); NEUTROPHILS % (AUTO) 70.3 % (43.0-81.0); PLATELET COUNT (AUTO) 79 /CMM (150-450); RED BLOOD CELL COUNT(AUTO) 2.65 MIL/uL (4.5-6.0); WHITE BLOOD COUNT (AUTO) 2.8 K/uL (4.3-11.0)
[2020-05-31] MEDS: Potassium Chloride 20 MEQ in IV NS 0.9% 1,000 ML IV PRN ×2 (08:47→18:08)
--- NOTE | 2020-05-31 08:57 | NUR ---
ICU/RN DUE MEDS ARE GIVEN ORDERED.ABG DONE .DR FARIAS SEEN THE PT.CONTINUE MONITORING.PT STILL WAITING TO BE TRANSFER TO DIFFERENT HOSPITAL FOR TRACH PLACEMENT.
[2020-05-31 09:07] LABS: CALCIUM, SERUM 7.8 mg/dL (8.5-10.1); CREATININE 0.2 mg/dL (0.6-1.3); POTASSIUM 3.1 mmol/L (3.5-5.1)
--- NOTE | 2020-05-31 10:00 | NUR ---
ICU/RN LABS REVIEW.K-3.1. NOTIFIED.REPLACED WITH 80 MEQ K-ALEKS VIA G -TUBE.
[2020-05-31] MEDS: POTASSIUM CHLORIDE 20 MEQ POWDER PACKET GT SCH ×2 (10:10→11:03)
[2020-05-31] MEDS: JEVITY 1.2 CAL 1,000 ML BOTTLE GT PRN (13:08)
--- NOTE | 2020-05-31 17:00 | NUR ---
ICU/RN PM CARE PROVIDED.PT SACRAL WOUND HAS SOME BLEEDING. DRESSING APPLIED ORDERED. DUE MEDS ARE GIVEN.V/S STABLE,AFEBRILE. SUCTION PROVIDED.REPOSITION FOR COMFORT.
--- NOTE | 2020-05-31 19:30 | NUR ---
DIRECTOR OF COMPENSATION INITIAL SHIFT NOTES RECEIVED PATIENT IN BED, SEDATED ON DIPRIVAN GTT CURRENTLY @ 65MCG/KG/MIN, ORALLY INTUBATED ON MECHANICAL VENTILATION, SETTINGS ORDERED, TOLERATING WELL, NO RESPIRATORY DISTRESS NOTED AT THIS TIME. BEDSIDE TELEMETRY MONITORING SHOWS SINUS RHYTHM. GT PATENT AND INTACT, ONGOING TUBE FEEDINGS AT PRESCRIBED RATE, TOLERATING WELL, MINIMAL STRAW COLORED GASTRIC RESIDUALS (<10ML). HOB KEPT ELEVATED FOR ASPIRATION PRECAUTIONS. WILL MONITOR PATIENT CLOSELY
[2020-06-01] VITALS (42 sets, daily range): BP systolic 86–141; BP diastolic 51–84
[2020-06-01] MEDS: ALBUTEROL FS 2.5 MG/0.5 ML VIAL.NEB NEB SCH ×4 (01:00→19:31)
[2020-06-01] MEDS: IPRATROPIUM NEB FS 0.5 MG/2.5 ML AMPUL.NEB NEB SCH ×4 (01:00→19:31)
[2020-06-01] MEDS: Potassium Chloride 20 MEQ in IV NS 0.9% 1,000 ML IV PRN ×2 (03:57→15:49)
--- NOTE | 2020-06-01 04:00 | NUR ---
FISHING TOOL TECHNICIAN OIL WELL NOTES PATIENT NOTED WITH BM X1, FULL BED BATH RENDERED, TOLERATED WELL. WILL MONITOR CLOSELY
[2020-06-01 04:21] LABS: BASOPHILS % (AUTO) 0.2 % (0.0-2.0); EOSINOPHILS % (AUTO) 0.4 % (0.0-6.0); HEMATOCRIT 27 % (39-51); HEMOGLOBIN 8.8 g/dL (13.5-17.5); LYMPHOCYTES # (AUTO) 0.6 /CMM (0.8-4.8); LYMPHOCYTES % (AUTO) 15.5 % (20.0-44.0); MEAN CORPUSCULAR HGB CONC 33 g/dl (31.0-36.0); MEAN CORPUSCULAR VOLUME 96 fL (80-96); MONOCYTES # (AUTO) 0.3 /CMM (0.1-1.30); MONOCYTES % (AUTO) 7.3 % (2.0-12.0); NEUTROPHILS # (AUTO) 2.9 /CMM (1.8-8.9); NEUTROPHILS % (AUTO) 76.6 % (43.0-81.0); PLATELET COUNT (AUTO) 92 /CMM (150-450); RED BLOOD CELL COUNT(AUTO) 2.79 MIL/uL (4.5-6.0); WHITE BLOOD COUNT (AUTO) 3.8 K/uL (4.3-11.0)
[2020-06-01 04:33] LABS: CALCIUM, SERUM 7.6 mg/dL (8.5-10.1); CREATININE 0.2 mg/dL (0.6-1.3); MAGNESIUM 1.7 mg/dL (1.8-2.4); PHOSPHORUS 2.7 mg/dL (2.5-4.9); POTASSIUM 3.7 mmol/L (3.5-5.1)
[2020-06-01] MEDS: PROPOFOL 100 ML IV PRN ×4 (04:52→19:58)
[2020-06-01 05:18] LABS: LYMPHOCYTES % (MANUAL) 13 % (16-48); NEUTROPHILS % (MANUAL) 82 (42-76)
[2020-06-01 05:19] LABS: MONOCYTES % (MANUAL) 5 % (0-11.0)
--- NOTE | 2020-06-01 06:30 | NUR ---
INTERIOR PAINTER NOTES DIPRIVAN TITRATED TO 55MC/KG/MIN. THROUGHOUT SHIFT, DIPRIVAN TITRATED FROM LOW 45MCG/KG/MIN UP TO 60 MCG/KG/MIN TO ACHIEVE PROPER LEVEL OF SEDATION. NO ACUTE EVENTS NOTED THROUGHOUT SHIFT, STILL PENDING TRANSFER TO [facility].
--- NOTE | 2020-06-01 07:20 | NUR ---
RN OPENING NOTE Received patient asleep in bed appears calm and relaxed. On ETT 7.5/24 and vent settings: 22, TV 400, FIO2 30%, PEEP +5 tolerating well no signs of distress. SR 70-110. On OGT feeding Jevity @ 1.2 @ 40ml/hr. Has Barclay catheter. Bilateral wrist soft restraints in place. JESSICA midline dressing intact running KCl 20meq @ 100ml/hr. and Diprivan @ 55mcg/kg/hr. Safety measures reinforced. Call light within reach. Bed locked and on lowest position. Will cont to monitor.
[2020-06-01] MEDS: MIDODRINE HCL (5MG) 5 MG TABLET PO SCH ×3 (08:45→18:00)
[2020-06-01] MEDS: PANTOPRAZOLE 40 MG VIAL IV SCH (08:48)
[2020-06-01] MEDS: predniSONE 20 MG TABLET PO SCH (08:48)
[2020-06-01] MEDS: PROSOURCE / PROSTAT (PYXIS) 30 ML UDC GT SCH ×2 (08:49→18:02)
[2020-06-01] MEDS: HYDROGEL DRESSING 90 GM TUBE TP SCH (08:49)
[2020-06-01] MEDS: NEOMY SULF/BACITRAC ZN/POLY 15 GM TUBE TP SCH (08:49)
[2020-06-01] MEDS: Z GUARD REMEDY 2 OZ OINT TP SCH ×2 (08:49→20:56)
[2020-06-01] MEDS: Magnesium 1GM/D5W 100ML PREMIX 100 ML IV SCH ×2 (10:26→11:35)
--- NOTE | 2020-06-01 10:30 | NUR ---
VIDEO CHAT DONE WITH FAMILY
--- NOTE | 2020-06-01 10:52 | NUR ---
SEDATION VACATION DONE. PATIENT AWAKE AT 20MCG/KG/HR. ABLE TO LOOK MY DIRECTION. FOLLOWS DIRECTION. BLINKED EYES AND MOVED HIS LEGS A COUPLE OF TIMES. VITAL SIGNS WITHIN NORMAL LIMITS. PUT BACK ON SEDATION AT 40MCG TOLERATING WELL KEPT COMFORTABLE.
--- NOTE | 2020-06-01 14:00 | NUR ---
INCREASED PROPOFOL TO 60MCG/KG/HR DUE TO PATIENT WIDE AWAKE AND MOVING HANDS TOWARDS TUBINGS. REORIENT DONE. WILL CONT TO MONITOR.
--- NOTE | 2020-06-01 18:52 | NUR ---
RN CLOSING NOTE Patient in bed sedated. Still on vent no change in settings. Tele monitor reading SR 70-80s. GT in place positive placement feeding Jevity 1.2 @ 40ml/hr tolerating well. Barclay catheter output total 850ml. No signs of dehydration. Flushed water as ordered. Restraints in place on both wrists. Diprivan on 60mcg/kg/hr tolerating well VS within normal limits. KCl 20meq in NS running @ 100ml/hr on JESSICA PICC line. Still pending on case management for transfer to [facility]. Safety measures reinforced. Call light within reach. Bed locked and on lowest setting. Side rails up x2. Will endorse to shift lab technician nurse for co
--- NOTE | 2020-06-01 19:30 | NUR ---
RN NOTES RECEIVED PATIENT IN BED SEDATED CONTINUES ON DIPRIVAN TOLERATING WELL. VENT SETTING TOLERATING WELL ORDERED. NO S/S OF DISTRESS NOTED. VITAL SIGNS STABLE. TELE MONITOR READING SB IN 50-55s. GT INTACT, PATIENT JEVITY 1.2 RUNNING @40ML/HR. F/C INTACT YELLOW URINE RUNNING TO GRAVITY. HOB ELEVATED TO PREVENT ASPIRATION. SAFETY MEASURES IN PLACE, WILL CONT TO MONITOR CLOSELY.
--- NOTE | 2020-06-01 19:44 | NUR ---
RT NOTE PT RECEIVED INTUBATED WITH 7.5 @ 24 CM. CUFF CHECKED VIA MEDICAL LABORATORY TECHNOLOGIST. TX GIVEN, NO ADVERSE REACTIONS NOTED. SX DONE, ET TUBE SECURED AND PATENT. ALARMS ON AND AUDIBLE. VENT PLUGGED TO RED OUTLET. ALEXANDRO BAG @ HOB. NO DISTRESS NOTED AT THIS TIME. WILL MONITOR. Addendum: 06/01/20 at 1946 by DEWAYNE DUFF RT Amended: Links added.
[2020-06-02] VITALS (44 sets, daily range): BP systolic 89–153; BP diastolic 55–85
[2020-06-02] MEDS: IPRATROPIUM NEB FS 0.5 MG/2.5 ML AMPUL.NEB NEB SCH ×4 (02:05→19:48)
[2020-06-02] MEDS: ALBUTEROL FS 2.5 MG/0.5 ML VIAL.NEB NEB SCH ×4 (02:05→19:47)
[2020-06-02] MEDS: Potassium Chloride 20 MEQ in IV NS 0.9% 1,000 ML IV PRN (02:10)
[2020-06-02] MEDS: PROPOFOL 100 ML IV PRN ×4 (02:10→16:45)
--- NOTE | 2020-06-02 04:00 | NUR ---
RN NOTES PATIENT HAD BM X1 BED BATH GIVEN PATIENT TOLERATED WELL. SAFETY MEASURES IN PLACE. WILL CONT TO MONITOR.
[2020-06-02 04:09] LABS: BASOPHILS % (AUTO) 0.2 % (0.0-2.0); EOSINOPHILS % (AUTO) 0.3 % (0.0-6.0); HEMATOCRIT 29 % (39-51); HEMOGLOBIN 9.6 g/dL (13.5-17.5); LYMPHOCYTES # (AUTO) 0.6 /CMM (0.8-4.8); LYMPHOCYTES % (AUTO) 14.1 % (20.0-44.0); MEAN CORPUSCULAR HGB CONC 33 g/dl (31.0-36.0); MEAN CORPUSCULAR VOLUME 97 fL (80-96); MONOCYTES # (AUTO) 0.3 /CMM (0.1-1.30); MONOCYTES % (AUTO) 6.9 % (2.0-12.0); NEUTROPHILS # (AUTO) 3.3 /CMM (1.8-8.9); NEUTROPHILS % (AUTO) 78.5 % (43.0-81.0); PLATELET COUNT (AUTO) 110 /CMM (150-450); RED BLOOD CELL COUNT(AUTO) 2.99 MIL/uL (4.5-6.0); WHITE BLOOD COUNT (AUTO) 4.2 K/uL (4.3-11.0)
[2020-06-02 04:23] LABS: CALCIUM, SERUM 7.7 mg/dL (8.5-10.1); CREATININE 0.2 mg/dL (0.6-1.3); MAGNESIUM 2.1 mg/dL (1.8-2.4); POTASSIUM 3.5 mmol/L (3.5-5.1)
[2020-06-02] MEDS: JEVITY 1.2 CAL 1,000 ML BOTTLE GT PRN (06:27)
--- NOTE | 2020-06-02 06:45 | NUR ---
RN NOTES PATIENT REMAINED SEDATED CONTINUES DIPRIVAN INCREASED TO 65MC/KG/MIN TO ACHIEVE PROPER LEVEL OF SEDATION. NO ACUTE CHANGES NOTED DURING SHIFT. GTF TOLERATING WELL WITH MINIMAL RESIDUAL NOTED. STILL PENDING TRANSFER TO [facility]. SAFETY MEASURES IN PLACE. WILL ENDORSE TO AM NURSE FOR ARTI.
--- NOTE | 2020-06-02 08:16 | NUR ---
received pt from community health nurse supervisor, calmly sedated on Diprivan at 65mcg, SR, intubated, sat well, BL hand edema, GT to feeding tolerates well, f/c good output, v/s stable, no pain, pt turned and repositioned.
[2020-06-02] MEDS: PROSOURCE / PROSTAT (PYXIS) 30 ML UDC GT SCH ×2 (08:41→16:54)
[2020-06-02] MEDS: PANTOPRAZOLE 40 MG VIAL IV SCH (08:41)
[2020-06-02] MEDS: predniSONE 20 MG TABLET PO SCH (08:41)
[2020-06-02] MEDS: MIDODRINE HCL (5MG) 5 MG TABLET PO SCH ×3 (08:42→16:53)
[2020-06-02] MEDS: NEOMY SULF/BACITRAC ZN/POLY 15 GM TUBE TP SCH (08:42)
[2020-06-02] MEDS: HYDROGEL DRESSING 90 GM TUBE TP SCH (08:42)
[2020-06-02] MEDS: Z GUARD REMEDY 2 OZ OINT TP SCH ×2 (08:43→21:29)
[2020-06-02] MEDS ORDERED: IV PREMIX D5 1/2NS + KCL 1,000 ML IV PRN (09:30)
--- NOTE | 2020-06-02 16:19 | NUR ---
pt is resting in the bed, sedated on Diprivan at 60mcg, SR, tolerates feeding, good urine output, v/s stable, no pain, pt cleaned, changed and repositioned.
[2020-06-02] MEDS ORDERED: ENOXAPARIN SODIUM 30 MG/0.3 ML DISP.SYRIN SQ SCH (17:00)
--- NOTE | 2020-06-02 19:05 | NUR ---
RN OPENING NOTES: PATIENT IN BED, SEDATED, REMAINS INTUBATED. TOLERATING VENT SETTINGS WELL. NO ACUTE DISTRESS. NO S/S OF PAIN. ON BEDSIDE MONITOR, NSR HR 80s. ON GTF AT 40 MLS/HR, NO RESIDUAL, TOLERATING WELL. JESSICA PICC LINE C/D/I. FLUSHING WELL. HOB ELEVATED. PINEDA INTACT AND PATENT, DRAINING CLEAR YELLOW URINE. ON PROPOFOL AT 30 MCG. SIDE RAILS X 2 UP, SOFT WRIST BILATERAL RESTRAINTS IN PLACE, ASSESSED CIRCULATION. BED LOCKED AND IN LOW POSITION. CALL LIGHT WITHIN REACH. WILL CONT. TO MONITOR.
--- NOTE | 2020-06-02 20:10 | NUR ---
RN NOTE: AT 1944: PHOTOGRAPHIC INTELLIGENCE OFFICER KARON FROM [facility] CALLED AND NOTIFIED THAT PATIENT WILL BE TRANSFERRED TO [facility] ICU. CM WILL CALL BACK AGAIN WHEN [facility] TRANSPORT IS AVAILABLE. CHARGE NURSE AWARE. AT 2004: REPORT GIVEN TO MIKE MILLER AT [facility] ICU. STILL AWAITING FOR TRANSPORTATION.
--- NOTE | 2020-06-02 20:12 | NUR ---
RT NOTE PT RECEIVED INTUBATED WITH 7.5 @ 24 CM. CUFF CHECKED VIA PLATING INSPECTOR. TX GIVEN, NO ADVERSE REACTIONS NOTED. SX DONE, ET TUBE SECURED AND PATENT. ALARMS ON AND AUDIBLE. VENT PLUGGED TO RED OUTLET. ALEXANDRO BAG @ HOB. NO DISTRESS NOTED AT THIS TIME. WILL MONITOR T/O SHIFT. Addendum: 06/02/20 at 2012 by DEWAYNE DUFF RT Amended: Links added.
--- NOTE | 2020-06-02 23:25 | NUR ---
RN NOTE: 5775: [facility]ICAL CARE TRANSPORT ARRIVED TO FABRIC MACHINE OPERATOR PATIENT. PATIENT IN STABLE CONDITION. NO ACUTE DISTRESS. NO S/S OF PAIN. PHOTOS OF SKIN ISSUES TAKEN AND PLACED IN CHART. REPORT GIVEN TO RAUL BLISS. CCRN SIGNED AND RECEIVED DC PAPERWORK. INVENTORY LIST WAS ALSO SIGNED DUE TO PATIENT UNABLE TO SIGN. ALL PERSONAL BELONGINGS TAKEN WITH PARAMEDICS. CHARGE NURSE AWARE. 0280: PATIENT LEFT WITH CRITICAL CARE TRANSPORT. CALLED [facility] ICU TO INFORM PATIENT IS ON THE WAY. 0005: SPOKE WITH PATIENT'S BRETT AND MADE AWARE OF TRANSFER. Addendum: 06/03/20 at 0020 by JESUS REID RN ALSO REMOVED BILATERAL SOFT WRIST RESTRAINTS.
--- NOTE | 2020-06-02 23:25 | NUR ---
RT NOTE PT TRANSFERRING TO [facility] VIA TRANSPORT AMBULANCE ACCOMPANIED BY NURSE AND 3 EMT'S. PT AWAKE/ALERT. SX DONE PRIOR TRANSFER TO [facility]. NO RESPIRATORY DISTRESS NOTED. ET TUBE SECURED AND PATENT. 7.5 ET TUBE @ 24 CM ON MID LIP LINE. PAUL MYERS @ BEDSIDE. PT IN STABLE CONDITION.
== END 2020-06-02 23:50 | disposition short-term general hospital (02) | DRG 130 ==
LOC: ER 00:56 → TELE 10:15 → ICU 12:10 → MED 05-17 13:24 → TELE 05-17 20:40 → MED 05-18 12:43 → ICU 05-18 17:38
PROVIDERS: ADMIT Internal Medicine; ATTEND Internal Medicine
PROC: 0BH17EZ Insertion of Endotracheal Airway into Trachea, Via Natural or Artificial Opening (ICD-10-PCS; principal; 2020-05-07)
PROC: B548ZZA Ultrasonography of Superior Vena Cava, Guidance (ICD-10-PCS; principal; 2020-05-07)
PROC: 02HV33Z Insertion of Infusion Device into Superior Vena Cava, Percutaneous Approach (ICD-10-PCS; principal; 2020-05-07)
PROC: 5A1945Z Respiratory Ventilation, 24-96 Consecutive Hours (ICD-10-PCS; principal; 2020-05-07)
PROC: 0JB70ZZ Excision of Back Subcutaneous Tissue and Fascia, Open Approach (ICD-10-PCS; 2020-05-10)
PROC: 5A09457 Assistance with Respiratory Ventilation, 24-96 Consecutive Hours, Continuous Positive Airway Pressure (ICD-10-PCS; 2020-05-18)
PROC: 0BH17EZ Insertion of Endotracheal Airway into Trachea, Via Natural or Artificial Opening (ICD-10-PCS; 2020-05-23)
PROC: 5A1955Z Respiratory Ventilation, Greater than 96 Consecutive Hours (ICD-10-PCS; 2020-05-23)
PROC: 30233N1 Transfusion of Nonautologous Red Blood Cells into Peripheral Vein, Percutaneous Approach (ICD-10-PCS; 2020-05-27)
DX: J96.21 Acute and chronic respiratory failure with hypoxia (principal); E43 Unspecified severe protein-calorie malnutrition; G93.41 Metabolic encephalopathy; J44.1 Chronic obstructive pulmonary disease with (acute) exacerbation; E83.42 Hypomagnesemia; E87.0 Hyperosmolality and hypernatremia; D61.818 Other pancytopenia; E87.2 Acidosis; E87.6 Hypokalemia; F41.9 Anxiety disorder, unspecified; G47.00 Insomnia, unspecified; K21.9 Gastro-esophageal reflux disease without esophagitis; R13.10 Dysphagia, unspecified; Z93.1 Gastrostomy status; Z87.01 Personal history of pneumonia (recurrent); Z87.891 Personal history of nicotine dependence; R64 Cachexia; Z68.1 Body mass index [BMI] 19.9 or less, adult; I95.9 Hypotension, unspecified; L89.153 Pressure ulcer of sacral region, stage 3; D63.8 Anemia in other chronic diseases classified elsewhere; R40.2362 Coma scale, best motor response, obeys commands, at arrival to emergency department; R40.2142 Coma scale, eyes open, spontaneous, at arrival to emergency department; R40.2242 Coma scale, best verbal response, confused conversation, at arrival to emergency department; J96.22 Acute and chronic respiratory failure with hypercapnia
CPT/HCPCS: 31720; 36415; 36569; 36600; 70450-TC; 71045-TC; 74018; 80048-TC; 80053-TC; 80061-TC; 80076-TC; 80305; 81000-TC; 82533; 82803-TC; 82962-TC; 83605-TC; 83735-TC; 84100-TC; 84443-TC; 84478-TC; 84484-TC; 85025-TC; 85610-TC; 85730-TC; 86850-TC; 86921-TC; 87040-TC; 87081-TC; 92521; 92526; 93307-TC; 94002-TC; 94003-TC; 94640; 94660; 94760-TC; 94799-TC; 97110-TC; 97116-TC; 97530-TC; 99082-TC; A4216; A4217; A4349; A6248; A6253; C1751; C9113; G0378; J0330; J1170; J1650; J1956; J2060; J2370; J2405; J2920; J2930; J3475; J3480; J3490; J7030; J7040; J7042; J7050; J7060; P9016-BL; P9047; Q0163; Q9963; U0003-CS